=== PATIENT | female | born 2000 | race Hispanic/Latino ===

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

== ENCOUNTER 2020-01-10 16:26 | Emergency (ER) | payer OTHER ==
--- OUTSIDE RECORDS SUMMARY | 2020-01-10 16:28 | XMS REPORT ---
:2000 Author Organization [facility] Address [address] [place] [address] Care Team Providers Name Role Phone Unavailable Unavailable Unavailable Problems This patient has no known problems. Allergies, Adverse Reactions, Alerts This patient has no known allergies or adverse reactions. Medications This patient has no known medications.
--- OUTSIDE RECORDS SUMMARY | 2020-01-10 16:29 | XMS REPORT | Summary of Care ---
:2000 Author Organization [facility] Address [address] [place] [id number] Care Team Providers Name Role Phone Jade Rose [facility] Primary [facility] Provider Reason for Visit Reason Comments Results Encounter Details Date Type Department Care Team Description 10/18/2019 Telephone [facility] Pediatric and Delta Wiggins MD Results Adult Primary Care- [address] [facility] [address] [address] [place] [address] [place] [address] [address] [place] [address] [phone] Allergies No Known Allergiesdocumented as of this encounter (statuses as of 10/18/2019) Medications Medication Sig Dispensed Refills Start Date [...] hemorrhage, needed for unspecified type Alternate with [place] for pain scale 1-3 (=). HYDROcodone-acetamino Take [...] (two) times tabletIndications: daily. hemorrhage, unspecified type doxycycline hyclate Take 1 tablet by 20 tablet 0 10/09/2019 Active 100 mg mouth 2 (two) times tabletIndications: daily. Urinary tract infection without hematuria, site unspecified meclizine 12.5 mg Take 1 tablet by 30 tablet 0 10/09/2019 Active tabletIndications: mouth 3 (three) Vertigo times daily as needed for Dizziness. cetirizine (ZYRTEC) Take 1 tablet by 15 tablet 0 10/09/2019 Active 10 mg mouth daily. tabletIndications: Urticaria, unspecified Hospital, Clinic, or Other Ordered Dose Route Frequency Start Date End Date Status Facility Administered Medication medroxyPROGESTERone 150 mg IM [id number] 05/17/2019 0 Active (DEPO-PROVERA) injection 150 mg documented as of this encounter (statuses as of 10/18/2019) Active Problems Problem Noted Date Vertigo 10/09/2019 Amenorrhea due to Depo Provera 10/09/2019 Fatigue, unspecified type 10/09/2019 Dyspareunia in female 10/09/2019 Urinary tract infection without hematuria, site unspec ified 10/09/2019 Urticaria, unspecified 10/09/2019 Anxiety 10/09/2019 Depo-Provera contraceptive status 05/28/2019 Overview: See scanned records received depo on 6-1 -19 Breakthrough bleeding on depo provera 04/19/2019 hemorrhage 12/20/2018 Acute blood loss anemia 12/20/2018 documented as of this encounter (statuses as of 10/18/2019) Resolved Problems Problem Noted Date Resolved Date 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 Headache 02/13/2015 12/20/2018 Overview: ICD10 Diagnosis Term 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 documented as of this encounter (statuses as of 10/18/2019) Social History Tobacco Use Types Packs/Day Years [...] filedocumented in this encounter Plan of Treatment Health Maintenance Due Date Last Done Comments VARICELLA VACCINES (1 of 2 - 2001 2-dose childhood series) MENINGOCOCCAL B VACCINES (1 of 2 - 2010 Risk Bexsero 2-dose series) DTaP,Tdap,and Td Vaccines (1 - 2011 Tdap) HPV VACCINES (1 - Female 2-dose 2011 series) WELL CARE VISIT: 12-21 YEARS 2012 (yearly) INFLUENZA VACCINE (#1) 2019 CHLAMYDIA SCREENING 04/19/2020 04/19/2019 MENINGOCOCCAL VACCINE Aged Out No longer eligible based on patient's age to complete this topic PNEUMOCOCCAL 0-64 YEARS COMBINED Aged Out No longer eligible based on SERIES patient's age to complete this topic documented as of this encounter Results Not on filedocumented in this encounter Insurance Payer Benefit Plan / Subscriber ID Effective Dates Phone Addre ss Type Group [id number] MEDICAID OF xxxxxxxxx 2019-Present [phone] [address] Medicaid [place] [id number] [place] [id number] documented as of this encounter
--- OUTSIDE RECORDS SUMMARY | 2020-01-10 16:29 | XMS REPORT | Summary of Care ---
:2000 Author Organization [facility] Address [address] [place] [address] Care Team Providers Name Role Phone Jade Rose Angle [facility] Primary Care Provider Encounter Details Date Type Department Care Team Description 10/10/2019 Orders Only [facility] Doctor Unassigned, No [address] [facility] [place] [address] [address] [place] [address] Allergies No Known Allergiesdocumented as of this encounter (statuses as of 10/11/2019) Medications Medication Sig Dispensed Refills Start Date [...] hemorrhage, needed for unspecified type Alternate with [place] for pain scale 1-3 (=). HYDROcodone-acetamino Take [...] Facility Administered Medication medroxyPROGESTERone 150 mg IM [id number] 05/17/2019 0 Active (DEPO-PROVERA) injection 150 mg documented as of this encounter (statuses as of 10/11/2019) Active Problems Problem Noted Date Vertigo 10/09/2019 Amenorrhea due to Depo Provera 10/09/2019 Fatigue, unspecified type 10/09/2019 Dyspareunia in female 10/09/2019 Urinary tract infection without hematuria, site unspec ified 10/09/2019 Urticaria, unspecified 10/09/2019 Anxiety 10/09/2019 Depo-Provera contraceptive status 05/28/2019 Overview: See scanned records received depo on 02-02 Breakthrough bleeding on depo provera 04/19/2019 hemorrhage 12/20/2018 Acute blood loss anemia 12/20/2018 documented as of this encounter (statuses as of 10/11/2019) Resolved Problems Problem Noted Date Resolved Date 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 Headache 02/13/2015 12/20/2018 Overview: ICD10 Diagnosis Term 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 documented as of this encounter (statuses as of 10/11/2019) Social History Tobacco Use Types Packs/Day Years [...] Procedures Procedure Name Priority Date/Time Associated Diagnosis Comme nts AGREEMENTS AUTHORIZATIONS Routine 10/10/2019 12:01 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
--- OUTSIDE RECORDS SUMMARY | 2020-01-10 16:30 | XMS REPORT | Summary of Care ---
:2000 Author Organization [facility] Address [address] [place] [address] Care Team Providers Name Role Phone Jade Rose [facility] Primary Care Provider [phone] Reason for Referral (Routine) Status Reason Specialty Diagnoses / Referred By Referred To Procedures Contact Contact New Request Obstetrics & Diagnoses Amenorrhea due to Depo Provera Dyspareunia in female [place], Gynecology Procedures CONSULT/REFERRAL AD TAKER MD Delta [address] [place] [address] [address] [place] [address] Reason for Visit Reason Comments New Patient est care VERTIGO Skin Problem UTI Sexual Problem dyspareunia with intermitten t bleed URTICARIA Anxiety Encounter Details Date Type Department Care Team Description 10/09/2019 Office Visit [facility] Delta Javier V ertigo (Primary Dx); and Adult Primary MD Amenorrhea due to Depo Provera; Care- [address] [place]; [address] [place] [address] , [address] Fatigue, unspecified type; [address] [place] [address] Dyspareunia in female; [place], [place] [phone] Urinary tract infection without hematuri a, site unspecified; [id number] Urticaria, unspecified [phone] Allergies No Known Allergiesdocumented as of this encounter (statuses as of 10/09/2019) Medications Medication Sig Dispensed Refills Start Date [...] hemorrhage, needed for unspecified type Alternate with [place] for pain scale 1-3 (=). HYDROcodone-acetamino Take [...] Facility Administered Medication medroxyPROGESTERone 150 mg IM [id number] 05/17/2019 0 Active (DEPO-PROVERA) injection 150 mg documented as of this encounter (statuses as of 10/09/2019) Active Problems Problem Noted Date Vertigo 10/09/2019 Amenorrhea due to Depo Provera 10/09/2019 Fatigue, unspecified type 10/09/2019 Dyspareunia in female 10/09/2019 Urinary tract infection without hematuria, site unspec ified 10/09/2019 Urticaria, unspecified 10/09/2019 Anxiety 10/09/2019 Depo-Provera contraceptive status 05/28/2019 Overview: See scanned records received depo on 609-22 Breakthrough bleeding on depo provera 04/19/2019 hemorrhage 12/20/2018 Acute blood loss anemia 12/20/2018 documented as of this encounter (statuses as of 10/09/2019) Resolved Problems Problem Noted Date Resolved Date 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 Headache 02/13/2015 12/20/2018 Overview: ICD10 Diagnosis Term Log Tumbler Utility documented as of this encounter (statuses as of 10/09/2019) Social History Tobacco Use Types Packs/Day Years [...] Sign Reading Time Taken Comments Blood Pressure 123/79 10/09/2019 1:00 PM REEL OPERATOR Pulse 86 10/09/2019 1:00 PM REEL OPERATOR Temperature 36.6 C (97.9 F) 10/09/2019 1:00 PM REEL OPERATOR Respiratory Rate 18 10/09/2019 1:00 PM REEL OPERATOR Oxygen Saturation 98% 10/09/2019 1:00 PM REEL OPERATOR Inhaled Oxygen Concentration - - Weight 67.3 kg (148 lb 4.8 oz) 10/09/2019 1:00 PM REEL OPERATOR Height 160 cm (5' 3") 10/09/2019 1:00 PM REEL OPERATOR Body Mass Index 26.27 10/09/2019 1:00 PM REEL OPERATOR documented in this encounter Patient Instructions Patient InstructionsDelta Javier MD - 10/09/2019 1:00 PM REEL OPERATOR Urinary Tract Infections in Women Urinary tract infections (UTIs) are most often caused bybacteria. These bacteria enter the urinarytract. The bacteria may come from inside the body. Or they may travel from the skin outside therectum or vagina into the urethra. Female anatomy makes it easy for bacteria from the bowelto enter a womans urinary tract, which is the most common source of UTI. This means women develop UTIs more often than men. Pain in or around the urinary tract is a common UTI symptom. But the only way to know for sure if you have a UTI for the healthcare provider to test your urine. The two tests that may be done are the urinalysis and urine culture. Types of UTIs Cystitis. A bladder infection (cystitis) is the most common UTI in women. You may have urgent or frequent need to pee. You may also havepain, burning when you pee, and bloody urine. Urethritis. This is an inflamed urethra, which is the tube that carries urine from the bladder tooutside the body. You may have lower stomach or back pain. You may also have urgent or frequent needto pee. Pyelonephritis. This is a kidney infection. If not treated, it can be serious and damage your kidneys. In severe cases, you may need to stay in thehospital. You may have a fever and lower back pain. Medicines to treat a UTI Most UTIs are treated with antibiotics. These kill the bacteria. The length of time you need to takethem depends on the type of infection. It may be as short as 3 days. If you have repeated UTIs, you may need a low-dose antibioticfor several months. Take antibiotics exactly as directed. Dont stop taking them until all of the medicine is gone. If you stop taking the antibiotic too soon, the infection may not go away. You may also develop a resistance to the antibiotic. This can make it much harder to treat. Lifestyle changes to treat and prevent UTIs The lifestyle changes below will help get rid of your UTI. They may also help prevent future UTIs. Drink plenty of fluids. This includes water, juice, or other caffeine-free drinks. Fluids help flush bacteria out of your body. Empty your bladder. Always empty your bladder when you feel the urge to pee. And always pee before going to sleep. Urine that stays in your bladder can lead to infection. Try to pee before and aftersex as well. Practice good personal hygiene. Wipe yourself from front to back after using the toilet. This helps keep bacteria from getting into the urethra. Use condoms during sex. These help prevent UTIs caused by sexually transmitted bacteria. Also don't use spermicides during sex. These can increase the risk for UTIs. Choose other forms of control instead. For women who tend to get UTIs after sex, a low-dose of a preventive antibiotic may be used. Be sure to discuss this option with your healthcare provider. Follow up with your healthcare provider as directed. He or she may test to make sure the infection has cleared. If needed, more treatment may be started. [employer] last reviewed this educational content on 03/04/201919994545-6540 [employer]. [address] [place] [address], [place] [address]. All rights reserved. This information is not intended as a substitute for professional medical care. Always follow your healthcare professional's instructions. OPERATOR documented in this encounter Progress Notes Delta Javier MD - 10/09/2019 1:00 PM CST Family Medicine Visit to Establish Care CC: Chief Complaint Patient presents with New Patient est care VERTIGO Skin Problem UTI Sexual Problem dyspareunia with intermittent bleed URTICARIA Anxiety HPI Maria A Veloz is a 19 year old female who has a past medical history of Acute blood loss anemia (12/20/2018), Amenorrhea due to Depo Provera (10/09/2019), Anxiety (10/09/2019), Breakthrough bleeding on depo provera (04/19/2019), Depo- Provera contraceptive status (05/28/2019), Dyspareunia in female (10/09/2019), Fatigue, unspecified type (10/09/2019), hemorrhage (12/20/2018), and Vertigo (10/09/2019).Patient is here to establish care and c/o of dizziness and diffuse skin pain. Dizziness started 1 month ago that is associated with nausea, but no vomiting. Says eating makes herstomach cramp and feel worse. Hasn't tried any medications to alleviate dizziness. Also reports fatigue. Has not fainted. Says she has taken multiple OTC tests, all of which have been negative. Last Hgb in 04/2019 was 13.9. Gave to daughter in 12/2018. complicated by hemorrhage, requiring 2 units of pRBCs. Also required vaginal laceration repair. Hasn't had a period since then, but patient has had multiple episodes of vaginal bleeding after intercourse. Patient says for the past month she has been able to have intercourse w/o bleeding, notes sx vaginal bleed is intermittent with intercourse, sometimes lasting up to 2 weeks, reports pain during intercourse. Denies change in odor or vaginal discharge. Patient received medroxyprogesterone injection in 05/2019. She did not receive subsequent scheduled medroxyprogesterone in 08/2019, no menstraul upper [place] since then Also complains of diffuse "skin pain". No recent falls or trauma. Says that pain is localized mainlyin legs, and after she scratches legs lightly there is diffuse bruising the next day. POCT test negative at this visit. UA positive for nitrates with trace leukocytes. Denies hematuria or change in frequency. Allergies Maria A has No Known Allergies. Medications Outpatient Medications Prior to Visit Medication Sig Dispense Refill ascorbic acid, vitamin C, 500 mg tablet Take 1 tablet by mouth 2 (two) times daily. 30 tablet 1 ferrous sulfate 325 mg (65 mg iron) tablet Take 1 tablet by mouth 3 (three) times daily with meals. 60 tablet 1 foLIC acid 1 mg tablet Take 1 tablet by mouth daily. 30 tablet 2 HYDROcodone-acetaminophen 5-325 mg tablet Take 1 tablet by mouth every 6 (six) hours as needed for Pain (scale 4-6). 28 tablet 0 ibuprofen 600 mg tablet Take 1 tablet by mouth every 8 (eight) hours as needed for Alternate with [place] for pain scale 1-3 (=). 30 tablet 2 vitamin w/FA tablet Take 1 tablet by mouth daily. 60 tablet 1 simethicone 80 mg chewable tablet Take 2 tablets by mouth after meals and at bedtime as needed for Gas. 10 tablet 0 Facility-Administered Medications Prior to Visit Medication Dose Route Frequency Provider Last Rate Last Dose medroxyPROGESTERone (DEPO-PROVERA) injection 150 mg 150 mg Intramuscular [id number] Jade Rose, WHBRIIP 150 mg at 05/17/19 1438 Histories Past Medical History: Diagnosis Date Acute blood loss anemia 12/20/2018 Amenorrhea due to Depo Provera 10/09/2019 Anxiety 10/09/2019 Breakthrough bleeding on depo provera 04/19/2019 Depo-Provera contraceptive status 05/28/2019 See scanned records received depo on 02-12-19 Dyspareunia in female 10/09/2019 Fatigue, unspecified type 10/09/2019 hemorrhage 12/20/2018 Vertigo 10/09/2019 Past Surgical History: Procedure Laterality Date EXPLORATORY LAPAROTOMY N/A 12/20/2018 Surgeon: Yovani Luna MD; Location: Labor and Delivery - [facility] Social History Socioeconomic History Marital status: Single [...] file Gets together: Not on file Attends tenriism service: Not on file Active member of [...] file Social History Narrative Not on file History reviewed. No pertinent family history. Review of Systems Constitutional: Positive for fatigue. Negative for chills and fever. HENT: Negative for ear pain and sore throat. Eyes: Negative for photophobia and visual disturbance. Respiratory: Negative for shortness of breath. Cardiovascular: Negative for chest pain and leg swelling. Gastrointestinal: Positive for nausea. Negative for vomiting. Genitourinary: Positive for dyspareunia. Negative for dysuria, urgency, hematuria and difficulty urinating. Musculoskeletal: Negative for arthralgias, back pain and neck pain. Neurological: Positive for dizziness and light-headedness. Negative for tremors and weakness. Psychiatric/Behavioral: Negative for confusion and suicidal ideas. Vital Signs BP 123/79 (BP Location: Left arm, Patient Position: Sitting, BP CUFF SIZE: Adult Medium) | Pulse 86 | Temp 36.6 C (97.9 F) (Temporal Artery) | Resp 18 | Ht 5' 3" (1.6 m) | Wt 148 lb 4.8 oz (67.3 kg) | SpO2 98% | BMI 26.27 kg/m Physical Exam Constitutional: She is oriented to person, place, and time. She appears well- developed and well-nourished. HENT: Head: Normocephalic. Right Ear: External ear normal. Left Ear: External ear normal. Mouth/Throat: Oropharynx is clear and moist. Eyes: Pupils are equal, round, and reactive to light. EOM are normal. Neck: Normal range of motion. Neck supple. Cardiovascular: Normal rate, regular rhythm, normal heart sounds and intact distal pulses. Pulmonary/Chest: Effort normal and breath sounds normal. Abdominal: Soft. Bowel sounds are normal. Genitourinary: Genitourinary Comments: No flank pain Vertical incision scar from exploratory laparotomy noted. Scar has no discharge or erythema. Computer Repairer: Yue Desouza Musculoskeletal: Normal range of motion. She exhibits no edema or tenderness. Neurological: She is alert and oriented to person, place, and time. Skin: Skin is warm and dry. Capillary refill takes less than 2 seconds. Psychiatric: She has a normal mood and affect. Her behavior is normal. Judgment and thought content normal. Assessment/Plan Vertigo - Complicated by UTI. HX blood loss anemia and fatigue noted - EKG: normal sinus rhythm - Labs as ordered - meclizine 12.5 mg tablet; Take 1 tablet by mouth 3 (three) times daily as needed for Dizziness. Dispense: 30 tablet; Refill: 0 Amenorrhea due to Depo Provera - No menstrual upper [place] since stopping medication atleast 3 months ago. Not breakthrough bleeds with intermittent bleed during intercourse, sometimes lasting up to 2 weeks. - POCT UA abnormal; POCT test negative - CONSULT/REFERRAL AD TAKER Anxiety - Stable. Complicated with traumatic birthing experience. Would benefit from CBT, will consider pharmacotherapy as indicated - Referral: Psychology, External Fatigue, unspecified type - Etiology unknown - Advised to maintain well balanced diet. - Labs as ordered Dyspareunia in female - Complicated by UTI, hx exploratory laparotomy and intermittent bleed during intercourse - CONSULT/REFERRAL AD TAKER Urinary tract infection without hematuria, site unspecified - UA in clinic abnormal: positive nitrate with trace leuks. Complicated by painful and intermittentbleed during intercourse - doxycycline hyclate 100 mg tablet; Take 1 tablet by mouth 2 (two) times daily. Dispense: 20 tablet; Refill: 0 - URINE CULTURE Urticaria, unspecified - Likely idiopathic. Symptomatic management - cetirizine (ZYRTEC) 10 mg tablet; Take 1 tablet by mouth daily. Dispense: 15 tablet; Refill: 0 Preventive Care: Medication reconciliation, patient education and anticipatory guidance completed. All questions and concerns addressed. AVS given, handout on UTI, vertigo provided. Return in about 2 weeks (around 10/23/2019), or if symptoms worsen or fail to improve. Eda Quinn MS3 10/09/2019 2:26 PM I personally examined the patient on 10/09/2019 and agree with MS 3 (Eda Quinn) note as written, including any changes or additions to the medical student's note. I actively participated in the decision making process. Please see note for additional details. Delta Javier MD 10/09/2019 3:06 PM OPERATOR documented in this encounter Plan of Treatment Name Type Priority Associated Diagnoses Date/Ti me URINE CULTURE LAB Routine Urinary tract infection wit hout 10/09/2019 4:18 PM REEL OPERATOR hematuria, site unspecified Name Type Priority Associated Diagnoses Order S chedule EKG-12 LEAD ROUTINE HEART STATION Routine Vertigo Ordered : 10/09/2019 CBC WITH DIFF LAB Routine Fatigue, unspecified Expect ed: type 10/09/2019, Expires: 10/09/2020 COMP. METABOLIC PANEL LAB Routine Vertigo Expected: ([id number]) Fatigue, unspecified 020, type Expires: 10/09/2020 FREE T3 LAB Routine Vertigo Expected: Fatigue, unspecified 020, type Expires: 10/09/2020 FREE T4 LAB Routine Vertigo Expected: Fatigue, unspecified 020, type Expires: 10/09/2020 THYROID STIMULATING LAB Routine Vertigo Expected: HORMONE Fatigue, unspecified 020, type Expires: 10/09/2020 LIPID PANEL LAB Routine Vertigo Expected: ([id number])(TOTAL 10/09/2019, CHOLESTEROL, Expires: TRIGLYCERIDES, HDL) 10/09/19 21 Health Maintenance Due Date Last Done Comments [...] encounter Procedures Procedure Name Priority Date/Time Associated Comments Diagnosis TEST, STAT 10/09/2019 4:18 PM Amenorrhea due to Results for this URINE REEL OPERATOR Depo Provera procedure are i n the results section. POCT URINALYSIS Routine 10/09/2019 2:34 PM Amenorrhea due to Results for this REEL OPERATOR Depo Provera procedure are i n the results section. documented in this encounter Results TEST, URINE (10/09/2019 4:18 PM REEL OPERATOR) Pathologist Sig nature PREG URINE Negative [facility] Specimen Urine - URINE, CLEAN CATCH Narrative Performed At Less than 20 IU/L. If low titer or ectopic [facility] is suspected, resubmit specimen in 48-72 hours. Performing Organization Address City/State/Zipcode Phone Number [facility] CLIA: [id number], [address] [place], [place] [address] POCT URINALYSIS W SPECIFIC GRAVITY (10/09/2019 2:34 PM REEL OPERATOR) Pathologist Sig nature POCT U SP GRAV 1.000 (A) 1.005 - 1.025 mg/dl POCT PH U 7 5 - 8 mg/dl POCT U LEUK EST trace Negative - Negative POCT U NIT positive Negative - Negative POCT U PROT negative Negative - Negative POCT U GLU negative Negative - Negative POCT U KETONE negative Negative - Negative POCT U UROBILI 0.2 0.2 - 1 mg/dl POCT U BILI negative Negative - Negative POCT U BLD negative Negative - Negative POCT U COLOR clear POCT U APPEAR clear Specimen Urine - URINE, CLEAN CATCH documented in this encounter Visit Diagnoses Diagnosis Vertigo - Primary Dizziness and giddiness Amenorrhea due to Depo Provera Absence of menstruation Anxiety Anxiety state, unspecified Fatigue, unspecified type Dyspareunia in female Urinary tract infection without hematuri a, site unspecified Urticaria, unspecified documented in this encounter Insurance Payer Benefit Plan / Subscriber ID Effective Dates Phone Addre ss Type Group [employer] MEDICAID OF xxxxxxxxx 2019-Present [phone] [place] [id number] [place] [id number] documented as of this encounter
--- OUTSIDE RECORDS SUMMARY | 2020-01-10 16:30 | XMS REPORT | Summary of Care ---
:2000 Author Organization [facility] Address [address] [place] [address] Care Team Providers Name Role Phone Jade Rose [facility] Primary [facility] Provider [phone] Reason for Referral (Routine) Status Reason Specialty Diagnoses / Referred By Referred To Procedures Contact Contact New Request Obstetrics & Diagnoses Amenorrhea due to Depo Provera Dyspareunia in female [place], Gynecology Procedures CONSULT/REFERRAL OTR COMPANY DRIVER MD Delta [address] [place] [address] [address] [place] [address] Reason for Visit Reason Comments New Patient est care VERTIGO Skin Problem UTI Sexual Problem dyspareunia with intermitten t bleed URTICARIA Anxiety Encounter Details Date Type Department Care Team Description 10/09/2019 Office Visit [facility] Pediatric Delta Javier V ertigo (Primary Dx); and Adult Primary MD Amenorrhea due to Depo Provera; Care- [address] [place]; [address] [place] [address] , [address] Fatigue, unspecified type; [address] [place] [address] Dyspareunia in female; [place], [place] [phone] Urinary tract infection without hematuri a, site unspecified; [id number] Urticaria, unspecified [phone] Allergies No Known Allergiesdocumented as of this [...] hemorrhage, needed for unspecified type Alternate with [place] for pain scale 1-3 (=). HYDROcodone-acetamino Take [...] Facility Administered Medication medroxyPROGESTERone 150 mg IM [id number] 05/17/2019 0 Active (DEPO-PROVERA) injection 150 mg [...] Headache 02/13/2015 12/20/2018 Overview: ICD10 Diagnosis Term Construction Electrician Utility documented as of this encounter (statuses [...] Comments Blood Pressure 123/79 10/09/2019 1:00 PM FEATHER SAWYER Pulse 86 10/09/2019 1:00 PM FEATHER SAWYER Temperature 36.6 C (97.9 F) 10/09/2019 1:00 PM FEATHER SAWYER Respiratory Rate 18 10/09/2019 1:00 PM FEATHER SAWYER Oxygen Saturation 98% 10/09/2019 1:00 PM FEATHER SAWYER Inhaled Oxygen Concentration - - Weight 67.3 kg (148 lb 4.8 oz) 10/09/2019 1:00 PM FEATHER SAWYER Height 160 cm (5' 3") 10/09/2019 1:00 PM FEATHER SAWYER Body Mass Index 26.27 10/09/2019 1:00 PM FEATHER SAWYER documented in this encounter Patient Instructions Patient InstructionsDelta Javier MD - 10/09/2019 1:00 PM FEATHER SAWYER Urinary Tract Infections in Women Urinary tract [...] If needed, more treatment may be started. [employer] last reviewed this educational content on 03/04/201919996395-0918 [employer]. [address] [place] [address], [place] [address]. All rights reserved. This information is not intended as a substitute for professional medical care. Always follow your healthcare professional's instructions. HER SAWYER documented in this encounter Progress Notes Delta [...] subsequent scheduled medroxyprogesterone in 08/2019, no menstraul [place] since then Also complains of diffuse "skin [...] (eight) hours as needed for Alternate with [place] for pain scale 1-3 (=). 30 tablet [...] (DEPO-PROVERA) injection 150 mg 150 mg Intramuscular [id number] Jade Rose, WHBRIIP 150 mg at 05/17/19 [...] Luna MD; Location: Labor and Delivery - [facility] Social History Socioeconomic History Marital status: Single [...] file Gets together: Not on file Attends restoration service: Not on file Active member of [...] noted. Scar has no discharge or erythema. Hand Stitcher: Yue Desouza Musculoskeletal: Normal range of motion. [...] due to Depo Provera - No menstrual [place] since stopping medication atleast 3 months ago. Not breakthrough bleeds with intermittent bleed during intercourse, sometimes lasting up to 2 weeks. - POCT UA abnormal; POCT test negative - CONSULT/REFERRAL OTR COMPANY DRIVER Anxiety - Stable. Complicated with traumatic birthing experience. Would benefit from CBT, will consider pharmacotherapy as indicated - Referral: Psychology, External Fatigue, unspecified type - Etiology unknown - Advised to maintain well balanced diet. - Labs as ordered Dyspareunia in female - Complicated by UTI, hx exploratory laparotomy and intermittent bleed during intercourse - CONSULT/REFERRAL OTR COMPANY DRIVER Urinary tract infection without hematuria, site unspecified [...] details. Delta Javier MD 10/09/2019 3:06 PM HER SAWYER documented in this encounter Plan of Treatment Name Type Priority Associated Diagnoses Date/Ti me URINE CULTURE LAB Routine Urinary tract infection wit hout 10/09/2019 4:18 PM FEATHER SAWYER hematuria, site unspecified Name Type Priority Associated Diagnoses Order S chedule EKG-12 LEAD ROUTINE HEART STATION Routine Vertigo Ordered : 10/09/2019 CBC WITH DIFF LAB Routine Fatigue, unspecified Expect ed: type 10/09/2019, Expires: 10/09/2020 COMP. METABOLIC PANEL LAB Routine Vertigo Expected: ([id number]) Fatigue, unspecified 020, type Expires: 10/09/2020 FREE T3 LAB Routine Vertigo Expected: Fatigue, unspecified 020, type Expires: 10/09/2020 FREE T4 LAB Routine Vertigo Expected: Fatigue, unspecified 020, type Expires: 10/09/2020 THYROID STIMULATING LAB Routine Vertigo Expected: HORMONE Fatigue, unspecified 020, type Expires: 10/09/2020 LIPID PANEL LAB Routine Vertigo Expected: ([id number])(TOTAL 10/09/2019, CHOLESTEROL, Expires: TRIGLYCERIDES, HDL) 10/09/19 21 [...] Amenorrhea due to Results for this URINE FEATHER SAWYER Depo Provera procedure are i n the results section. POCT URINALYSIS Routine 10/09/2019 2:34 PM Amenorrhea due to Results for this FEATHER SAWYER Depo Provera procedure are i n the results section. documented in this encounter Results TEST, URINE (10/09/2019 4:18 PM FEATHER SAWYER) Pathologist Sig nature PREG URINE Negative [facility] Specimen Urine - URINE, CLEAN CATCH Narrative Performed At Less than 20 IU/L. If low titer or ectopic [facility] is suspected, resubmit specimen in 48-72 hours. Performing Organization Address City/State/Zipcode Phone Number [facility] CLIA: [id number], [address] [place], [place] [address] POCT URINALYSIS W SPECIFIC GRAVITY (10/09/2019 2:34 PM FEATHER SAWYER) Pathologist Sig nature POCT U SP GRAV [...] Type Group [employer] MEDICAID OF xxxxxxxxx 2019-Present [phone] [address] Medicaid [place] [id number] [place] [phone] documented as of this encounter
--- OUTSIDE RECORDS SUMMARY | 2020-01-10 16:30 | XMS REPORT | Summary of Care ---
:2000 Author Organization [facility] Address [address] [place] [address] Care Team Providers Name Role Phone Jade Rose Angle [facility] Primary Care Provider [phone] Reason for Visit Reason Comments LAB Encounter Details Date Type Department Care Team Description 10/10/2019 Cuff Runner Visit [facility] Lance Javier MD [address] [place] [address] [address] [place], [place] [id number] Fatigue, unspecified type; Professional Office 2, Adc Lab Vertigo Building Phlebotomy Lab Professional Office Building [address] [place] [address] , [address] [place] [phone] Allergies No Known Allergiesdocumented as of this encounter (statuses as of 10/10/2019) Medications Medication Sig Dispensed Refills Start Date [...] hemorrhage, needed for unspecified type Alternate with [place] for pain scale 1-3 (=). HYDROcodone-acetamino Take [...] Facility Administered Medication medroxyPROGESTERone 150 mg IM [id number] 05/17/2019 0 Active (DEPO-PROVERA) injection 150 mg documented as of this encounter (statuses as of 10/10/2019) Active Problems Problem Noted Date Vertigo 10/09/2019 Amenorrhea due to Depo Provera 10/09/2019 Fatigue, unspecified type 10/09/2019 Dyspareunia in female 10/09/2019 Urinary tract infection without hematuria, site unspec ified 10/09/2019 Urticaria, unspecified 10/09/2019 Anxiety 10/09/2019 Depo-Provera contraceptive status 05/28/2019 Overview: See scanned records received depo on 6-09-22 Breakthrough bleeding on depo provera 04/19/2019 hemorrhage 12/20/2018 Acute blood loss anemia 12/20/2018 documented as of this encounter (statuses as of 10/10/2019) Resolved Problems Problem Noted Date Resolved Date 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 Headache 02/13/2015 12/20/2018 Overview: ICD10 Diagnosis 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 documented as of this encounter (statuses as of 10/10/2019) Social History Tobacco Use Types Packs/Day Years [...] filedocumented in this encounter Plan of Treatment Name Type Priority Associated Diagnoses Order S chedule CBC WITH DIFFERENTIAL LAB Routine Fatigue, unspecifie d type Ordered: 10/10/2019 Health Maintenance Due Date Last Done Comments VARICELLA VACCINES (1 of - 2001 2-dose childhood series) MENINGOCOCCAL B VACCINES (1 of - 2010 Risk Bexsero 2-dose series) DTaP,Tdap,and Td Vaccines ( - 2011 Tdap) HPV VACCINES (1 - [...] filedocumented in this encounter Visit Diagnoses Diagnosis Fatigue, unspecified type Vertigo Dizziness and giddiness documented in this encounter Insurance Payer Benefit Plan / Subscriber ID Effective Dates Phone Addre ss Type Group [employer] MEDICAID OF xxxxxxxxx 2019-Present [phone] [address] [place] [address] [place] [address] (Lewis) [place] [address] documented as of this encounter
--- OUTSIDE RECORDS SUMMARY | 2020-01-10 16:31 | XMS REPORT | Summary of Care ---
:2000 Author Organization [facility] Address [address] [place] [address] Care Team Providers Name Role Phone Jade Rose [facility] Primary Care Provider [phone] Reason for Visit Reason Comments Rx Concern/Question license number Encounter Details Date Type Department Care Team Description 10/09/2019 Telephone [facility] Pediatric Delta Javier MD Rx Concern/Question and Adult Primary [address] [facility] (license number) [place] [id number] [address] [facility] [place] [address] [address] [place] [address] Allergies No Known Allergiesdocumented as of this [...] hemorrhage, needed for unspecified type Alternate with [place] for pain scale 1-3 (=). 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
--- NOTE | 2020-01-10 18:58 | ER ---
Nurse's Notes [facility] Name: Maria A Veloz Age: 19 yrs Sex: Female : 2000 Arrival Date: 01/10/2020 Time: 16:32 Bed Waiting Private MD: Diagnosis: Presentation: 01/09 16:33 Chief complaint: Patient states: vaginal bleeding since 12/05/19. c/o abd cramping. sv Reports using a pad Q2H. Has had vaginal bleeding problems since the of her daughter last year. Coronavirus screen: Proceed with normal triage. Patient denies a cough. Patient denies shortness of breath or difficulty breathing. Patient denies measured and/or subjective temperature greater than 100.4F prior to today's visit. Patient denies travel on a cruise ship or to a country the [facility] currently lists as an affected area. Patient denies contact with known and/or suspected case of COVID-19. Ebola Screen: No symptoms or risks identified at this time. Risk Assessment: Do you want to hurt yourself or someone else? Patient reports no desire to harm self or others. Onset of symptoms was 2019. 16:33 Method Of Arrival: Ambulatory sv 16:33 Acuity: SARAH 3 sv 16:35 Initial Sepsis Screen: Does the patient meet any 2 criteria? No. Patient's initial sv sepsis screen is negative. Does the patient have a suspected source of infection? No. Patient's initial sepsis screen is negative. Triage Assessment: 16:37 General: Appears in no apparent distress. comfortable, Behavior is calm, cooperative, sv appropriate for age. Pain: Complains of pain in suprapubic area. Neuro: Level of Consciousness is awake, alert, obeys commands, Oriented to person, place, time, situation, Gait is steady. : Reports vaginal bleeding that is bright red, brown, moderate flow. Historical: - Allergies: 16:34 No Known Drug Allergies; sv - PMHx: 16:34 Asthma; sv - PSHx: 16:34 Exploratory lap; sv - Immunization history:: Adult Immunizations up to date. - Social history:: Smoking status: . Vital Signs: 16:35 BP 114 / 77; Pulse 78; Resp 16; Temp 98.9(O); Pulse Ox 98% ; Height 5 ft. 3 in. (160.02 sv cm); ED Course: 16:32 Patient arrived in ED. mr 16:32 Arm band placed on. sv 16:34 Triage completed. sv 18:42 Patient's name was called from ER lobby. No response. aa5 18:57 Patient's name was called from ER lobby. No response. sv Administered Medications: No medications were administered Outcome: 18:58 Patient left the ED. sv Signatures: Bouchra Roman RN RN sv Rivera, Mary mr Calderon, Audri, RN RN aa5 Corrections: (The following items were deleted from the chart) 16:37 16:35 Pulse 78bpm; Resp 16bpm; Pulse Ox 98%; Temp 98.9F Oral; Height 5 ft. 3 in.; sv sv 16:38 16:33 Chief complaint: Patient states: vaginal bleeding since 12/05/19. c/o abd cramping. sv Reports using a pad Q2H sv
[2020-01-10 19:02] VITALS: BP 114/77; TEMP 98.9; O2SAT 98
== END 2020-01-10 18:58 | disposition left against medical advice (07) ==
LOC: ER 16:26
DX: Z53.21 Procedure and treatment not carried out due to patient leaving prior to being seen by health care provider (principal)
CPT/HCPCS: 99281

== ENCOUNTER 2020-01-16 16:11 | Emergency (ER) | payer OTHER ==
--- OUTSIDE RECORDS SUMMARY | 2020-01-16 16:14 | XMS REPORT ---
:2000 Author Organization [facility] t Address [address] [place] [address] Care Team Providers Name Role Phone Concepcion PORTILLO Attending Clinician 2, Lab Attending Clinician Unavailable Doctor Unassigned, Name Attending Clinician Unavailable Problems This patient has no known problems. Allergies, Adverse Reactions, Alerts This patient has no known allergies or adverse reactions. Medications This patient has no known medications. Procedures This patient has no known procedures. 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, Adc Lab [facility] [id number] 08:19:48 08:34:48 Visit Kulwant [id number] [place] [id number] Mihai [phone] nal 353 [facility] 2019-10-10 2019-10-10 Orders Doctor DAHL [id number] 00:00:00 00:00:00 Only Unassigned, JOSE [id number] [place] [id number] 2019-10-09 2019-10-09 Office Concepcion [facility] [id number] 12:49:19 16:10:54 Visit Delta Blum [id number] [place] [id number] Mihai [phone] [address] 2019-10-09 2019-10-09 [facility] [id number] 00:00:00 00:00:00 Delta Blum [id number] [place] [id number] [phone] [address] Results This patient has no known results.
[2020-01-16 17:37] LABS: Absolute Lymphocytes (CBC) 1.9 K/uL (0.7-4.9); Basophils % 0.8 % (0-1.3); Hematocrit 42.8 % (36.0-45.0); Lymphocytes % 25.9 % (15.3-44.8); MPV 11.6 fL (7.6-11.3); RBC Red Blood Cell Count 4.82 M/uL (3.86-4.86)
[2020-01-16 17:38] LABS: Protime INR 1.05
[2020-01-16 17:59] LABS: BUN Blood Urea Nitrogen 8 mg/dL (7-18); Bicarbonate 29 mmol/L (21-32); Glucose Level 91 mg/dL (74-106); Potassium 3.6 mmol/L (3.5-5.1); Sodium Level 141 mmol/L (136-145)
--- NOTE | 2020-01-16 18:10 | RAD REPORT ---
EXAM DESCRIPTION: CT - Head Brain Wo Cont - 01/16/2020 5:49 pm CLINICAL HISTORY: Headache COMPARISON: 2014 TECHNIQUE: Computed axial tomography of the head was obtained. IV contrast was not requested. All CT scans are performed using dose optimization technique as appropriate and may include automated exposure control or mA/KV adjustment according to patient size. FINDINGS: An intracranial bleed is not seen . The ventricles are normal in caliber. No extra-axial fluid collection is noted. Cerebellar tonsillar ectopia is present Fluid within the sinuses/ mastoids is not seen. IMPRESSION: Cerebellar tonsillar ectopia No acute intracranial abnormality is seen. If patient's symptoms persist MRI of the brain would be r ecommended.
[2020-01-16 18:19] LABS: Urine Blood TRACE (NEG); Urine Glucose NEGATIVE (NEG); Urine Protein NEGATIVE (NEG)
--- NOTE | 2020-01-16 18:44 | ER ---
Nurse's Notes [facility] Name: Maria A Veloz Age: 19 yrs Sex: Female : 2000 Arrival Date: 01/16/2020 Time: 16:24 Bed 7 Private MD: Diagnosis: Headache Presentation: 01/15 16:25 Chief complaint: Patient states: Headache for 1 week. Dizziness and near syncope for 1 ll1 days. Reports vaginal bleeding for 1 month, heavy at times. Coronavirus screen: Proceed with normal triage. Patient denies a cough. Patient denies shortness of breath or difficulty breathing. Patient denies measured and/or subjective temperature greater than 100.4F prior to today's visit. Patient denies travel on a cruise ship or to a country the [facility] currently lists as an affected area. Patient denies contact with known and/or suspected case of COVID-19. Ebola Screen: Patient denies travel to an Ebola-affected area in the 21 days before illness onset. Initial Sepsis Screen: Does the patient meet any 2 criteria? No. Patient's initial sepsis screen is negative. Does the patient have a suspected source of infection? No. Patient's initial sepsis screen is negative. Risk Assessment: Do you want to hurt yourself or someone else? Patient reports no desire to harm self or others. Onset of symptoms was January 09, 2020. 16:25 Method Of Arrival: Ambulatory ll1 16:25 Acuity: SARAH 3 ll1 Historical: - Allergies: 16:30 No Known Drug Allergies; ll1 16:31 TB test; ll1 16:31 Tape; ll1 - PMHx: 16:30 Asthma; Anemia; complications from child ; ll1 - PSHx: 16:30 Exploratory lap; ll1 - Immunization history:: Adult Immunizations up to date, Flu vaccine is not up to date. - Social history:: Patient/guardian denies using alcohol, street drugs, tobacco products, Smoking status: Patient denies any tobacco usage or history of. Patient/guardian denies using alcohol. Screenin:11 Abuse screen: Denies threats or abuse. Denies injuries from another. Nutritional jl7 screening: No deficits noted. Tuberculosis screening: No symptoms or risk factors identified. Fall Risk IV access (20 points). Total Te[place] Fall Scale indicates No Risk (0-24 pts). Assessment: 17:00 General: Appears in no apparent distress. comfortable, Behavior is calm, cooperative, em appropriate for age, Denies fever. Pain: Complains of pain in forehead Pain currently is 6 out of 10 on a pain scale. Pain began 2-3 days ago. Neuro: Level of Consciousness is awake, alert, obeys commands, Oriented to person, place, time, situation, Appropriate for age Double End Sewer are equal bilaterally Moves all extremities. Speech is normal, Facial symmetry appears normal, Reports dizziness, headache weakness. Cardiovascular: Denies chest pain, Capillary refill < 3 seconds Patient's skin is warm and dry. Respiratory: Airway is patent Respiratory effort is even, unlabored, Respiratory pattern is regular, symmetrical. GI: Abdomen is flat, Reports nausea, Patient currently denies vomiting. : Urine is clear, Reports burning with urination, vaginal bleeding that is bright red. Derm: Skin is intact, is healthy with good turgor, Skin is pink, warm \T\ dry. Musculoskeletal: Capillary refill < 3 seconds, Range of motion: intact in all extremities. 17:58 Reassessment: Patient appears in no apparent distress at this time. Patient and/or em family updated on plan of care and expected duration. Pain level reassessed. Patient is alert, oriented x 3, equal unlabored respirations, skin warm/dry/pink. Vital Signs: 16:25 BP 132 / 80; Pulse 77; Resp 16; Temp 98.5; Pulse Ox 98% ; Weight 63.5 kg; Height 5 ft. ll1 4 in. (162.56 cm); Pain 6/10; 17:11 BP 103 / 68; Pulse 64; Resp 16; Pulse Ox 97% ; jl7 17:47 BP 118 / 77 Supine; Pulse 80; em 17:47 BP 123 / 91 Sitting; Pulse 82; em 17:47 BP 119 / 91 Standing; Pulse 74; em 16:25 Body Mass Index 24.03 (63.50 kg, 162.56 cm) ll1 ED Course: 16:24 Patient arrived in ED. mr 16:29 Triage completed. ll1 16:30 Arm band placed on Patient placed in an exam room, on a stretcher. ll1 16:33 Jimi Cervantes PA is PHCP. cp 16:33 Jimi Landa MD is Attending Physician. cp 16:45 Robbi Freitas, RN is Primary Nurse. em 17:11 Patient has correct armband on for positive identification. Placed in gown. Bed in low jl7 position. Call light in reach. Side rails up X 1. Pulse ox on. NIBP on. 17:30 Initial lab(s) drawn, by me, sent to lab. Inserted saline lock: 20 gauge in right em antecubital area, using aseptic technique. Blood collected. 17:48 CT Head Brain wo Cont In Process Unspecified. EDMS 18:50 No provider procedures requiring assistance completed. IV discontinued, intact, em bleeding controlled, No redness/swelling at site. Pressure dressing applied. Administered Medications: No medications were administered Outcome: 18:43 Discharge ordered by MD. cp 18:51 Discharged to home ambulatory. em 18:51 Condition: good 18:51 Discharge instructions given to patient, Instructed on discharge instructions, follow up and referral plans. medication usage, Demonstrated understanding of instructions, follow-up care, medications, Prescriptions given X 1. 18:52 Patient left the ED. em Signatures: Dispatcher [employer] Fina Brumfield mr Robbi Freitas, RN RN em Jimi Cervantes PA PA cp Loren Xiao RN RN jl7 Jese Horvath RN RN ll1
--- NOTE | 2020-01-16 18:44 | EDPHYS ---
Physician Documentation [facility] Name: Maria A Veloz Age: 19 yrs Sex: Female : 2000 Arrival Date: 01/16/2020 Time: 16:24 Bed 7 Private MD: ED Physician Jimi Landa HPI: 01/15 16:49 This 19 yrs old Female presents to ER via Ambulatory with complaints of cp Headache, Dizziness. 16:49 The patient complains of pain to the top of head, forehead, right congregation and left cp congregation. The patient describes the headache as aching, waxing and waning. Onset: The symptoms/episode began/occurred 1 week(s) ago. Associated signs and symptoms: Pertinent positives: dizziness, Pertinent negatives: altered mental status, fever, neck stiffness, paresthesias, Photophobia sinus congestion, sinus tenderness. Headache History: Other patient reports history of migraines. 16:50 Severity of symptoms: in the emergency department the pain a " 6" out of "10". cp Historical: - Allergies: 16:30 No Known Drug Allergies; ll1 16:31 TB test; ll1 16:31 Tape; ll1 - PMHx: 16:30 Asthma; Anemia; complications from child ; ll1 - PSHx: 16:30 Exploratory lap; ll1 - Immunization history:: Adult Immunizations up to date, Flu vaccine is not up to date. - Social history:: Patient/guardian denies using alcohol, street drugs, tobacco products, Smoking status: Patient denies any tobacco usage or history of. Patient/guardian denies using alcohol. ROS: 16:55 Constitutional: Negative for body aches, chills, fever, poor PO intake. cp 16:55 Eyes: Negative for injury, pain, redness, and discharge. cp 16:55 ENT: Negative for drainage from ear(s), ear pain, sore throat, difficulty swallowing, difficulty handling secretions. 16:55 Cardiovascular: Negative for chest pain, palpitations. 16:55 Respiratory: Negative for cough, shortness of breath, wheezing. 16:55 Abdomen/GI: Negative for abdominal pain, nausea, vomiting, and diarrhea. 16:55 : Positive for vaginal bleeding, Negative for urinary symptoms. 16:55 Skin: Negative for rash. 16:55 Neuro: Positive for dizziness, headache, Negative for altered mental status, syncope, weakness. 16:55 All other systems are negative. Exam: 17:00 Constitutional: The patient appears in no acute distress, alert, awake, non-toxic, well cp developed, well nourished. 17:00 Head/Face: Normocephalic, atraumatic. cp 17:00 Eyes: Periorbital structures: appear normal, Pupils: equal, round, and reactive to light and accomodation, Extraocular movements: intact throughout, Conjunctiva: normal, no exudate, no injection, Sclera: no appreciated abnormality, Lids and lashes: appear normal, bilaterally. 17:00 ENT: External ear(s): are unremarkable, Nose: is normal, Mouth: Lips: moist, Oral mucosa: pink and intact, moist, Posterior pharynx: is normal, airway is patent, no erythema, no exudate. 17:00 Neck: ROM/movement: is normal, is supple, without pain, no range of motions limitations, no meningismus. 17:00 Chest/axilla: Inspection: normal, Palpation: is normal, no crepitus, no tenderness. 17:00 Cardiovascular: Rate: normal, Rhythm: regular. 17:00 Respiratory: the patient does not display signs of respiratory distress, Respirations: normal, no use of accessory muscles, labored breathing, is not present. 17:00 Abdomen/GI: Inspection: abdomen appears normal, Palpation: abdomen is soft and non-tender, in all quadrants. 17:00 Neuro: Orientation: to person, place \\T\\ time. Mentation: is normal, Cerebellar function: is grossly normal, Motor: moves all fours, strength is normal, Sensation: is normal, Gait: is steady, at a normal pace, without difficulty. 17:12 ECG was reviewed by the Attending Physician. cp Vital Signs: 16:25 BP 132 / 80; Pulse 77; Resp 16; Temp 98.5; Pulse Ox 98% ; Weight 63.5 kg; Height 5 ft. ll1 4 in. (162.56 cm); Pain 6/10; 17:11 BP 103 / 68; Pulse 64; Resp 16; Pulse Ox 97% ; jl7 17:47 BP 118 / 77 Supine; Pulse 80; em 17:47 BP 123 / 91 Sitting; Pulse 82; em 17:47 BP 119 / 91 Standing; Pulse 74; em 16:25 Body Mass Index 24.03 (63.50 kg, 162.56 cm) ll1 MDM: 16:36 Patient medically screened. soren 18:42 Data reviewed: vital signs, nurses notes, lab test result(s), EKG, radiologic studies, cp CT scan, and as a result, I will discharge patient. 18:42 Differential diagnosis: migraine, tension headache, anemia. Counseling: I had a cp detailed discussion with the patient and/or guardian regarding: the historical points, exam findings, and any diagnostic results supporting the discharge/admit diagnosis, lab results, radiology results, the need for outpatient follow up, a family practitioner, to return to the emergency department if symptoms worsen or persist or if there are any questions or concerns that arise at home. Response to treatment: the patient's symptoms have mildly improved after treatment, and as a result, I will discharge patient. 01/15 16:47 Order name: CBC with Diff; Complete Time: 18:05 cp 01/15 18:06 Interpretation: Normal except: PLT 150; MPV 11.6. cp 01/15 16:47 Order name: BMP; Complete Time: 18:05 cp 01/15 16:47 Order name: CT Head Brain wo Cont; Complete Time: 18:18 cp 01/15 16:47 Order name: PT-INR; Complete Time: 18:05 cp 01/15 17:44 Order name: Urine Dipstick--Ancillary (enter results); Complete Time: 18:22 hb 01/15 18:22 Interpretation: Normal except: UBLD TRACE; UPH 8.0. cp 01/15 17:44 Order name: Urine --Ancillary (enter results); Complete Time: 18:22 hb 01/15 16:34 Order name: Orthostatics; Complete Time: 17:51 cp 01/15 16:34 Order name: Urine Dipstick-Ancillary (obtain specimen); Complete Time: 17:27 cp 01/15 16:34 Order name: Urine Test (obtain specimen); Complete Time: 17:27 cp 01/15 16:47 Order name: IV; Complete Time: 17:14 cp EC:12 Rate is 69 beats/min. Rhythm is regular. IA interval is normal. QRS interval is normal. cp QT interval is normal. T waves are Flattened in lead aVL. Interpreted by me. Reviewed by me. Administered Medications: No medications were administered Disposition: 01/16 05:42 Co-signature as Attending Physician, Jimi Landa MD I agree with the assessment and [facility] plan of care. Disposition: 01/16/20 18:43 Discharged to Home. Impression: Headache. - Condition is Stable. - Discharge Instructions: General Headache Without Cause. - Prescriptions for Ibuprofen 800 mg Oral Tablet - take 1 tablet by ORAL route every 8 hours As needed take with food; 30 tablet. - Medication Reconciliation Form, Thank You Letter, Antibiotic Education, Prescription Opioid Use form. - Follow up: Private Physician; When: 2 - 3 days; Reason: Recheck today's complaints. - Problem is new. - Symptoms have improved. Signatures: Dispatcher [employer] Jimi Rehman MD MD cha Munoz, Edgar, RN RN em Jimi Cervantes PA PA cp [place], Lynsay RN RN ll1 Corrections: (The following items were deleted from the chart) 01/15 18:52 18:43 01/16/2020 18:43 Discharged to Home. Impression: Headache. Condition is Stable. em Forms are Medication Reconciliation Form, Thank You Letter, Antibiotic Education, Prescription Opioid Use. Follow up: Private Physician; When: 2 - 3 days; Reason: Recheck today's complaints. Problem is new. Symptoms have improved. cp
[2020-01-16 19:36] VITALS: TEMP 98.5
[2020-01-16 19:37] VITALS: O2SAT 97
[2020-01-16 19:38] VITALS: BP 119/91
--- NOTE | 2020-01-17 11:23 | EKG ---
Test Date: 2020-01-16 Test Time: 17:07:12 Machine Leather Trimmer: KATH MEASUREMENT RESULTS: Intervals: Rate: 69 MD: 144 QRSD: 82 QT: 376 QTc: 402 [place]: P: 69 MD: 144 QRS: 82 T: 66 INTERPRETIVE STATEMENTS: Normal sinus rhythm with sinus arrhythmia Normal ECG Compared to ECG 04/06/2015 20:23:14 No significant changes Electronically Signed On 01-17-20 11:21:45 CDT by Emil Abdalla
== END 2020-01-16 18:52 | disposition home or self-care (01) ==
LOC: ER 16:11
DX: R51 Headache (principal); Z88.8 Allergy status to other drugs, medicaments and biological substances; Z91.048 Other nonmedicinal substance allergy status
CPT/HCPCS: 36415; 70450; 80048; 81003; 81025; 85025; 85610; 93005; 99284

== ENCOUNTER 2020-10-06 15:55 | Emergency (ER) | payer OTHER ==
--- OUTSIDE RECORDS SUMMARY | 2020-10-06 15:56 | XMS REPORT | Summary of Care ---
:2000 Author Organization [facility] - [facility] Address [address] [place] [address] Care Team Providers Name Role Phone Ronaldoteresintia Jade Barbour [facility] Provider [phone] Encounter Details Date Type Department Care Team Description 08/14/2020 Letter (Out) [facility] MyCCanoPt Message s Doctor Unassigned, No [address] [facility] [address] [address] [facility] [phone] [place] [address] Allergies No Known Allergiesdocumented as of this encounter (statuses as of 08/14/2020) Medications No known medicationsdocumented as of this encounter (statuses as of 08/14/2020) Active Problems Problem Noted Date Vertigo 10/09/2019 [...] as of this encounter (statuses as of 08/14/2020) Resolved Problems Problem Noted Date Resolved Date 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 Headache 02/13/2015 12/20/2018 Overview: ICD10 Diagnosis Term 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 documented as of this encounter (statuses as of 08/14/2020) Social History Tobacco Use Types Packs/Day Years Used Date Never Smoker Smokeless Tobacco: Never Used Alcohol Use Drinks/Week oz/Week Comments Not Asked Sex Assigned at Date Recorded Not on file documented as of this encounter Last Filed Vital Signs Not on filedocumented in this encounter Plan of Treatment Date Type Specialty Care Team Description 08/14/2020 Urgent Care Family Medicine Provider, [facility] Health Maintenance Due Date Last Done Comments VARICELLA VACCINES (1 of 2 - 2001 2-dose childhood series) MENINGOCOCCAL B VACCINES (1 of 2 - 2010 Risk Bexsero 2-dose series) HPV VACCINES (1 - 2-dose series) 2011 Depression Screening 2012 WELL CARE VISIT: 12-21 YEARS 2012 (yearly) DTaP,Tdap,and Td Vaccines (1 - 2019 Tdap) CHLAMYDIA SCREENING 04/19/2020 04/19/2019 INFLUENZA VACCINE (#1) 2020 MENINGOCOCCAL VACCINE Aged Out No longer eligible based on patient's age to complete this topic PNEUMOCOCCAL 0-64 YEARS COMBINED Aged Out No longer eligible based on SERIES patient's age to complete this topic documented as of this encounter Results Not on filedocumented in this encounter Insurance Payer Benefit Plan / Subscriber ID Effective Phone Address Kimberly cox [facility] [id number] 2019-Prese [address] Medic aid HEALTH CHOICE - HEALTH CHOICE nt [id number] 1 MANAGED MEDICAID [place], [place]ICA[place] [id number] documented as of this encounter
--- OUTSIDE RECORDS SUMMARY | 2020-10-06 15:56 | XMS REPORT | Continuity of Care Document ---
:2000 Author Organization [facility] t Address [address] [place] [address] Dr. Macario [address] [place] [address] Care Team Providers Name Role Phone Provider, Urgent Care Attending Clinician Unavailable Problems This patient has no known problems. Allergies, Adverse Reactions, Alerts This patient has no known allergies or adverse reactions. Medications This patient has no known medications. Procedures This patient has no known procedures. Encounters Start End Encounter Admission Attending Care Care Encounter Source Date/Time Date/Time Type Type Clinicians Facility Department ID 2020-10-04 2020-10-04 Urgent Provider, [facility] [id number] 12:54:03 13:14:03 Care [facility] [id number] Care [place] [id number] Professio [phone] nal [address] 2020-08-14 2020-08-14 Urgent Provider, [facility] [id number] 12:45:43 13:33:16 Care [facility] [id number] [facility] [id number] Professio [phone] nal [address] Results This patient has no known results.
--- OUTSIDE RECORDS SUMMARY | 2020-10-06 15:57 | XMS REPORT | Summary of Care ---
:2000 Author Organization [facility] Address [address] [place] [id number] Care Team Providers Name Role Phone Jade Rose Primary Care Provider [phone] Reason for Visit Reason Comments Sore Throat started yesterday RUNNY NOSE started yesterday Cough started yesterday Encounter Details Date Type Department Care Team Description 10/04/2020 Urgent Care [facility] Rochelle Emanuel FNP [address] [facility] [address] [place] [address] Viral illness (Primary Dx); Medicine - [place] Provider, [facility] Exposure to SARS-associated coronavirus [address] [place] [address] Allergies No Known Allergiesdocumented as of this encounter (statuses as of 10/04/2020) Medications No known medicationsdocumented as of this encounter (statuses as of 10/04/2020) Active Problems Problem Noted Date Vertigo 10/09/2019 [...] as of this encounter (statuses as of 10/04/2020) Resolved Problems Problem Noted Date Resolved Date 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 documented as of this encounter Last Filed Vital Signs Vital Sign Reading Time Taken Comments Blood Pressure 129/71 10/04/2020 1:00 PM MAKEUP ARTISTRY INSTRUCTOR Pulse 85 10/04/2020 1:00 PM MAKEUP ARTISTRY INSTRUCTOR Temperature 36.2 C (97.1 F) 10/04/2020 1:00 PM MAKEUP ARTISTRY INSTRUCTOR Respiratory Rate 18 10/04/2020 1:00 PM MAKEUP ARTISTRY INSTRUCTOR Oxygen Saturation 98% 10/04/2020 1:00 PM MAKEUP ARTISTRY INSTRUCTOR Inhaled Oxygen Concentration - - Weight 68 kg (150 lb) 10/04/2020 1:00 PM MAKEUP ARTISTRY INSTRUCTOR Height 160 cm (5' 3") 10/04/2020 1:00 PM MAKEUP ARTISTRY INSTRUCTOR Body Mass Index 26.57 10/04/2020 1:00 PM MAKEUP ARTISTRY INSTRUCTOR documented in this encounter Patient Instructions Patient InstructionsRochelle Buenrostro FNP - 10/04/2020 1:00 PM CST1. Viral illness Viral Illness -- No focus suspicious for a bacterial process. Educated patient that viral illness usually last 7-10 days and resolve with symptomatic treatment. - counseled patient about at home care: Use Advil Cold/Sinus as needed for fever and/or congestion Use Robitussin DM or Mucinex DM to help with cough Tylenol and Ibuprofen as needed for pain and fever Rest Raise head of bed Increase fluids -HYDRATION WITH CLEAR LIQUIDS Vitamin C Warm salt water gargles or CEPACOL sprays for sore throat. Breath humidified air (steam) SIPPING WARM DRINKS may help. Warm Compresses (if sinus pressure or pain). HAND HYGIENE (with alcohol gels or hand washing) Advised to take Tylenol or Ibuprofen as per label recommendation as needed for pain or fever Honey 10mL (2 teaspoons) has been shown to relieve cough at bedtime. Dark Chocolate helps with cough (xanthenes) Avoidance of cigarette smoke, alcoholic drinks, diving into deep water and air travel is useful. Irrigate your nose with normal saline moisture spray 2 or 3 times a day. You may use a spray, squeeze bottle, or nasal pot. ? Nasal Congestion (Stopped Up): Oxymetazoline HCl (Afrin, 4-Way, & more) 0.05 % nasal spray, 1 spray each nostril at bedtime. Limit to 5 nights. If use twice a day then limit to 3 days. - Advised to follow up with PCP, return to Urgent Care, or go to the nearest Emergency Department sooner for any new, worsening, persistent, or concerning symptoms. 2. Exposure to SARS-associated coronavirus - COVID-19 (MOLECULAR TESTING NUCLEIC ACID AMPLIFICATION) - Quarantine until your COVID results are back Criteria met - Covid testing - pending. This test can take 2-3 days to be resulted. While the test is pending...Please socially isolate your self - do not go out to stores or out in public. We will contact you once we have the results. If you are negative - continue with symptomatic treatment. (see below) Patients who have positive results will be contacted by the health department to enforce quarantine measures and for additional community contact tracing. The Infection Control Department will also undertake evaluation of exposures in our healthcare facility. If symptoms worsen - please call your Primary Care Doctor - do not go into the clinic. Call first. Educated on the following at home care: - Discussed likely viral diagnosis and treatment plan with pt. - pt advised on frequent effective handwashing - pt advised to increase fluid intake , stay hydrated and get plenty of rest. - advised to have the pt take OTC to treat symptoms. - Pt advised to administer Tylenol as per label recommendation as needed for pain or fever - Cover mouth when coughing, wear mask - Stay in your own bedroom and use a separate bathroom - Keep at least 6 feet from you and others - Avoid sharing personal household items, dishes, glasses, cups, towels -Clean high traffic/touch areas daily. These include but not limited to: doorknobs, refrigerator/cabinet handles, phones, keyboards, tablets, light switches. - AVS and Written/handout materials appropriate to problem and teaching provided. - advised to go to the nearest Emergency Department sooner for any new, worsening, persistent, or concerning symptoms - Patient verbalized understanding of all instructions - Follow-up with PCP as needed, if no improvement EDUCATION: Handouts given: Patient educated on plan of care for visit, swabbing technique,risks and benefits of test and lengthof time to receive results. Verbal consent obtained to perform test. CDC Fact Sheet for patients nCoV Diagnostic Panel dated 11/17/2019 provided. "What to do if you are sick with COVID-19" CDC information guide reviewed with the patient and handout given to patient Education given to self quarantine until results are back. Will notify patient with results. Patient states understanding and all questions answered. Plan of care, goals and medications discussed with patient. Patient voices understanding. Barriers to care: none Ability to manage care: good FOLLOW UP: Pt advised to call 911 or go to the nearest Emergency Department sooner for any worsening, persistent, or concerning symptoms ER precautions given Plan of care, desired health behaviors, goals, and medication discussed with patient. Education resources provided and reviewed with AVS. Patient/guardian/family verbalized understanding & agrees to plan of care. Urgent Care precautions and follow up : 1. Return to clinic if your symptoms should worsen or fail to improve within 72 hours. 2. The care provided in the urgent care was for acute problems only. 3. You should follow up with your primary care provider within 72 hours. 4. Make sure you are staying adequately hydrated. MAY FOLLOW-UP WITH A PROVIDER OF YOUR CHOICE, SUCH : 1. A PHYSICIAN OF YOUR CHOICE OR, IF YOU WISH TO FOLLOW-UP WITHIN THE [facility], MAY TRY THESE OPTIONS (CLINIC APPOINTMENTS AVAILABLE ON [id number] BASIS): 1. SCHEDULE AN APPOINTMENT ONLINE AT [facility] 2. OR CALL THE [facility] ACCESS CENTER AT OR 3. OR CALL YOUR [facility] PHYSICIAN'S OFFICE DIRECTLY IF YOU ARE ALREADY AN ESTABLISHED [facility] PATIENT. After [facility] care nurse access center available by calling [phone] 24 hours 7 days per week. Rochelle Buenrostro [facility] UP ARTISTRY INSTRUCTOR documented in this encounter Progress Notes Rochelle Buenrostro FNP - 10/04/2020 1:00 PM CST Cc: Chief Complaint Patient presents with Sore Throat started yesterday RUNNY NOSE started yesterday Cough started yesterday Maria A Veloz is a 20 year old female presents with concern for sore throat, runny nose and cough that started yesterday. Some post tusses emesis today. Her daughter is 2 y/o and sick with similar symptoms. She's not taking any otc medications. Denies any travel. She works at [employer] in and has been around positive contacts. Eating/drinking good. Denies any fever, chills or body aches. URI Presenting symptoms: congestion, cough, rhinorrhea and sore throat Presenting symptoms: no ear pain, no facial pain, no fatigue and no fever Congestion: Location: Nasal Interferes with sleep: no Interferes with eating/drinking: no Cough: Cough characteristics: Dry Severity: Mild Onset quality: Sudden Duration: 1 day Timing: Intermittent Progression: Unchanged Chronicity: New Rhinorrhea: Quality: Clear Severity: Mild Duration: 1 day Timing: Intermittent Progression: Unchanged Severity: Mild Onset quality: Sudden Duration: 1 day Timing: Intermittent Progression: Unchanged Chronicity: New Relieved by: None tried Worsened by: Nothing Ineffective treatments: None tried Associated symptoms: sneezing Associated symptoms: no arthralgias, no headaches, no myalgias, no neck pain, no sinus pain, no swollen glands and no wheezing Risk factors: sick contacts Risk factors: no immunosuppression, no recent illness and no recent travel Allergies Maria A has No Known Allergies. Medications No outpatient medications prior to visit. No facility-administered medications prior to visit. Histories Past Medical History: Diagnosis Date Acute [...] Luna MD; Location: Labor and Delivery - [place] Social History Socioeconomic History Marital status: Single Spouse name: Not on file Number of children: Not on file Years of education: Not on file Highest education level: Not on file Occupational History Occupation: unemployed Social Needs Financial resource strain: Not on file Food insecurity Worry: Not on file Inability: Not on file Transportation needs Medical: Not on file Non-medical: Not on file Tobacco Use Smoking status: Never Smoker Smokeless tobacco: Never Used Substance and Sexual Activity Alcohol use: Not on file Drug use: Not on file Sexual activity: Not on file Lifestyle Physical activity Days per week: Not on file Minutes per session: Not on file Stress: Not on file Relationships Social connections Talks on phone: Not on file Gets together: Not on file Attends latter day service: Not on file Active member of club or organization: Not on file Attends meetings of clubs or organizations: Not on file Relationship status: Not on file Intimate partner violence Fear of current or ex partner: Not on file Emotionally abused: Not on file Physically abused: Not on file Forced sexual activity: Not on file Other Topics Concern Not on file Social History Narrative Lives at home with mom and siblings. Family History Problem Relation Age of Onset Diabetes Mother Hypertension Mother Hypertension Father Review of Systems Constitutional: Negative for activity change, appetite change, chills, fatigue and fever. HENT: Positive for congestion, postnasal drip, rhinorrhea, sneezing and sore throat. Negative for ear pain and sinus pain. Respiratory: Positive for cough. Negative for shortness of breath, wheezing and stridor. Gastrointestinal: Positive for vomiting. Negative for diarrhea and nausea. Musculoskeletal: Negative for arthralgias, myalgias and neck pain. Skin: Negative for rash. Neurological: Negative for dizziness, weakness and headaches. All other systems reviewed and are negative. Vital Signs BP 129/71 | Pulse 85 | Temp 36.2 C (97.1 F) (Oral) | Resp 18 | Ht 5' 3" (1.6 m) | Wt 150 lb(68 kg) | SpO2 98% | BMI 26.57 kg/m Physical Exam Vitals signs and nursing note reviewed. Constitutional: Appearance: She is well-developed. HENT: Head: Normocephalic and atraumatic. Right Ear: Tympanic membrane, ear canal and external ear normal. Left Ear: Tympanic membrane, ear canal and external ear normal. Nose: Congestion and rhinorrhea present. No nasal tenderness. Mouth/Throat: Lips: [place]. Mouth: Mucous membranes are moist. Pharynx: Oropharynx is clear. Tonsils: 1+ on the right. 1+ on the left. Eyes: Conjunctiva/sclera: Conjunctivae normal. Neck: Musculoskeletal: Normal range of motion and neck supple. Cardiovascular: Rate and Rhythm: Normal rate and regular rhythm. Heart sounds: Normal heart sounds. No murmur. No friction rub. No gallop. Pulmonary: Effort: Pulmonary effort is normal. No accessory muscle usage or respiratory distress. Breath sounds: Normal breath sounds. No decreased breath sounds, wheezing, rhonchi or rales. Musculoskeletal: Normal range of motion. Skin: General: Skin is warm and dry. Findings: No rash. Neurological: Mental Status: She is alert and oriented to person, place, and time. Psychiatric: Behavior: Behavior normal. Assessment/Plan Maria A Velzo is a 20 year old female presents with concern for sore throat, runny nose and cough that started yesterday. 1. Viral illness Viral Illness -- No focus suspicious for a bacterial process. Educated patient that viral illness usually last 7-10 days and resolve with symptomatic treatment. - counseled patient about at home care: Use Advil Cold/Sinus as needed for fever and/or congestion Use Robitussin DM or Mucinex DM to help with cough Tylenol and Ibuprofen as needed for pain and fever Rest Raise head of bed Increase fluids -HYDRATION WITH CLEAR LIQUIDS Vitamin C Warm salt water gargles or CEPACOL sprays for sore throat. Breath humidified air (steam) SIPPING WARM DRINKS may help. Warm Compresses (if sinus pressure or pain). HAND HYGIENE (with alcohol gels or hand washing) Advised to take Tylenol or Ibuprofen as per label recommendation as needed for pain or fever Honey 10mL (2 teaspoons) has been shown to relieve cough at bedtime. Dark Chocolate helps with cough (xanthenes) Avoidance of cigarette smoke, alcoholic drinks, diving into deep water and air travel is useful. Irrigate your nose with normal saline moisture spray 2 or 3 times a day. You may use a spray, squeeze bottle, or nasal pot. ? Nasal Congestion (Stopped Up): Oxymetazoline HCl (Afrin, 4-Way, & more) 0.05 % nasal spray, 1 spray each nostril at bedtime. Limit to 5 nights. If use twice a day then limit to 3 days. - Advised to follow up with PCP, return to Urgent Care, or go to the nearest Emergency Department sooner for any new, worsening, persistent, or concerning symptoms. 2. Exposure to SARS-associated coronavirus - COVID-19 (MOLECULAR TESTING NUCLEIC ACID AMPLIFICATION) - Quarantine until your COVID results are back Criteria met - Covid testing - pending. This test can take 2-3 days to be resulted. While the test is pending...Please socially isolate your self - do not go out to stores or out in public. We will contact you once we have the results. If you are negative - continue with symptomatic treatment. (see below) Patients who have positive results will be contacted by the health department to enforce quarantine measures and for additional community contact tracing. The Infection Control Department will also undertake evaluation of exposures in our healthcare facility. If symptoms worsen - please call your Primary Care Doctor - do not go into the clinic. Call first. Educated on the following at home care: - Discussed likely viral diagnosis and treatment plan with pt. - pt advised on frequent effective handwashing - pt advised to increase fluid intake , stay hydrated and get plenty of rest. - advised to have the pt take OTC to treat symptoms. - Pt advised to administer Tylenol as per label recommendation as needed for pain or fever - Cover mouth when coughing, wear mask - Stay in your own bedroom and use a separate bathroom - Keep at least 6 feet from you and others - Avoid sharing personal household items, dishes, glasses, cups, towels -Clean high traffic/touch areas daily. These include but not limited to: doorknobs, refrigerator/cabinet handles, phones, keyboards, tablets, light switches. - AVS and Written/handout materials appropriate to problem and teaching provided. - advised to go to the nearest Emergency Department sooner for any new, worsening, persistent, or concerning symptoms - Patient verbalized understanding of all instructions - Follow-up with PCP as needed, if no improvement EDUCATION: Handouts given: Patient educated on plan of care for visit, swabbing technique,risks and benefits of test and lengthof time to receive results. Verbal consent obtained to perform test. CDC Fact Sheet for patients nCoV Diagnostic Panel dated 11/17/2019 provided. "What to do if you are sick with COVID-19" CDC information guide reviewed with the patient and handout given to patient Education given to self quarantine until results are back. Will notify patient with results. Patient states understanding and all questions answered. Plan of care, goals and medications discussed with patient. Patient voices understanding. Barriers to care: none Ability to manage care: good FOLLOW UP: Pt advised to call 911 or go to the nearest Emergency Department sooner for any worsening, persistent, or concerning symptoms ER precautions given Plan of care, desired health behaviors, goals, and medication discussed with patient. Education resources provided and reviewed with AVS. Patient/guardian/family verbalized understanding & agrees to plan of care. Urgent Care precautions and follow up : 1. Return to clinic if your symptoms should worsen or fail to improve within 72 hours. 2. The care provided in the urgent care was for acute problems only. 3. You should follow up with your primary care provider within 72 hours. 4. Make sure you are staying adequately hydrated. MAY FOLLOW-UP WITH A PROVIDER OF YOUR CHOICE, SUCH : 1. A PHYSICIAN OF YOUR CHOICE OR, IF YOU WISH TO FOLLOW-UP WITHIN THE [facility], MAY TRY THESE OPTIONS (CLINIC APPOINTMENTS AVAILABLE ON [id number] BASIS): 1. SCHEDULE AN APPOINTMENT ONLINE AT [facility] 2. OR CALL THE [facility] ACCESS CENTER AT OR 3. OR CALL YOUR [facility] PHYSICIAN'S OFFICE DIRECTLY IF YOU ARE ALREADY AN ESTABLISHED [facility] PATIENT. After hours care nurse access center available by calling [phone] 24 hours 7 days per week. Rochelle GARDNER [facility] documented in this encounter Plan of Treatment Name Type Priority Associated Diagnoses Order S caprile COVID-19 (MOLECULAR LAB Routine Exposure to SARS-asso ciated Ordered: 10/04/2020 TESTING coronavirus NUCLEIC ACID AMPLIFICATION) Health Maintenance Due Date Last Done Comments VARICELLA VACCINES (1 of 2 - 2001 2-dose childhood series) MENINGOCOCCAL B VACCINES (1 of 2 - 2010 Risk Bexsero 2-dose series) HPV VACCINES (1 - 2-dose series) 2011 Depression Screening 2012 WELL CARE VISIT: 12-21 YEARS 2012 (yearly) SARS-CoV-2 (COVID-19) Vaccine (1 2016 of 2) DTaP,Tdap,and Td Vaccines (1 - 2019 Tdap) CHLAMYDIA SCREENING 04/19/2020 04/19/2019 INFLUENZA VACCINE (#1) 2020 MENINGOCOCCAL VACCINE Aged Out No longer eligible based on patient's age to complete this topic PNEUMOCOCCAL 0-64 YEARS COMBINED Aged Out No longer eligible based on SERIES patient's age to complete this topic documented as of this encounter Results Not on filedocumented in this encounter Visit Diagnoses Diagnosis Viral illness - Primary Unspecified viral infection, in conditio ns classified elsewhere and of unspecified site Exposure to SARS-associated coronavirus documented in this encounter Additional Health Concerns Infection Onset Date Last Indicated Resolved Time COVID-19 Rule Out 10/04/2020 10/04/2020 documented as of this encounter Insurance Payer Benefit Plan / Subscriber ID Effective Phone Address [facility] [id number] 2019-Prese [address] Medic aid HEALTH CHOICE - HEALTH CHOICE nt [id number] 1 MANAGED MEDICAID [place], [place] MED[place]ID [id number] documented as of this encounter
--- OUTSIDE RECORDS SUMMARY | 2020-10-06 15:57 | XMS REPORT | Summary of Care ---
:2000 Author Organization [facility] Address [address] [place] [address] Care Team Providers Name Role Phone Jade Rose Angle CNDamaris Primary Care Provider Reason for Visit Reason Comments Sore Throat RUNNY NOSE Diarrhea Cough x 08/13/2020 Encounter Details Date Type Department Care Team Description 08/14/2020 Urgent Care [facility] Family Theodora Domenicamitchell amor, STEMHOLE BORER [facility] [address] [address] Sore throat (Primary Dx); [facility] Provider, [facility] URI, acute; [address] [place] [address] Exposure t o SARS-associated [place] [address] Allergies No Known Allergiesdocumented as of this encounter (statuses as of 08/14/2020) Medications Medication Sig Dispensed Refills Start Date End Date Status maalox:diphenhydrAMIN Take 10 mL by 120 mL 0 08/14/2020 Active E:lidocaine 2 % mouth 3 (three) viscous times daily as 1:1:1Indications: needed (Swish and URI, acute, Sore spit) for up to 5 throat days. documented as of this encounter (statuses as [...] Headache 02/13/2015 12/20/2018 Overview: ICD10 Diagnosis Term Marketing Coordinator Utility documented as of this encounter (statuses as of 08/14/2020) Social History Tobacco Use Types Packs/Day Years Used Date Never Smoker Smokeless Tobacco: Never Used Alcohol Use Drinks/Week oz/Week Comments Not Asked Sex Assigned at Date Recorded Not on file COVID-19 Exposure Response Date Recorded In the last month, have you been in contact with Yes 08/14/2020 12:58 PM PARKER someone who was confirmed or suspected to have Coronavirus / COVID-19? documented as of this encounter Last Filed Vital Signs Vital Sign Reading Time Taken Comments Blood Pressure 111/77 08/14/2020 1:03 PM PARKER Pulse 69 08/14/2020 1:03 PM PARKER Temperature 36.9 C (98.4 F) 08/14/2020 1:03 PM PARKER Respiratory Rate 17 08/14/2020 1:03 PM PARKER Oxygen Saturation 99% 08/14/2020 1:03 PM PARKER Inhaled Oxygen Concentration - - Weight 68 kg (150 lb) 08/14/2020 1:03 PM PARKER Height 160 cm (5' 3") 08/14/2020 1:03 PM PARKER Body Mass Index 26.57 08/14/2020 1:03 PM PARKER documented in this encounter Patient Instructions Patient InstructionsStephanie Yip FNP - 08/14/2020 1:00 PM PARKER Patient Education FOR SORE THROAT: Dont smoke, and avoid secondhand smoke. Try lozenges OTC as directed Drink warm liquids to soothe the throat and help thin mucus. Avoid alcohol, spicy foods, and acidic drinks such as orange juice. These can irritate the throat. Gargle with warm saltwater (1 teaspoon of salt to 8 ounces of warm water). Use a humidifier to keep air moist and relieve throat dryness. Try pbcv-mps-chwnfgp pain relievers such as acetaminophen or ibuprofen. Use as directed, and dont exceed the recommended dose. Educated on the following at home care for covid: -Take OTC Mucinex DM or Robitussin DM or tessalon (patient already has at home) as needed -Increase water intake -Take over the counter vitamin C/multivitamin with vitamin C -Take Tylenol as needed, avoid nsaids -REST -Wash hands often -Cover mouth when coughing -Wear mask with in the same room/car as others -Gargle with warm salt water as needed -Drink warm liquids as needed. -Throat lozenges as needed -Quarantine until your COVID results are back -Stay in your own bedroom and use a separate bathroom -Keep at least 6 feet from you and others -Avoid sharing personal household items, dishes, glasses, cups, towels -Clean high traffic/touch areas daily. These include but not limited to: doorknobs, refrigerator/cabinet handles, phones, keyboards, tablets, light switches. -Monitor your symptoms. Take your temperature 2 times daily. -Follow-up with PCP as needed, if no improvement. -Monitor your symptoms. Go to the ED if worsening symptoms: chest pain, difficulty breathing, coughing up blood, weakness, dizziness, passing out, AMS. -[facility] handout provided Self-Care for Sore Throats Sore throats happen for many reasons, such as colds, allergies, cigarette smoke, air pollution, and infections caused by viruses or bacteria. In any case, your throat becomes red and sore. Your goal for self-care is to reduce your discomfort while giving your throat a chance to heal. Moisten and soothe your throat Tips include the following: Try a sip of water first thing after waking up. Keep your throat moist by drinking6 or more glasses of clear liquids every day. Run a cool-air humidifier in your room overnight. Stay away from cigarette smoke. Check the air quality index,if air pollution gives you a sore throat. On high pollution days, tryto limit outdoor time. Suck on throat lozenges, cough drops, hard candy, ice chips, or frozen fruit- juice bars. Use the sugar-free versions if your diet or medical condition requires them. Gargle to ease irritation Gargling every hour or2 can ease irritation. Try gargling with1 of these solutions: 1/4teaspoon of salt in1/2 cup of warm water An ozzk-luw-umvawdc anesthetic gargle Use medicine for more relief Pyfn-ebz-ccqldbm medicine can reduce sore throat symptoms. Ask your pharmacist if you have questionsabout which medicine to use. To prevent possible medicine interactions, let the pharmacist know whatmedicines you take. To decrease symptoms: Ease pain with anesthetic sprays. Aspirin or an aspirin substitute also helps. Remember, never give aspirin to anyone 18 or younger. Don't take aspirin if you are alreadytaking blood thinners. For sore throats caused by allergies, try antihistamines to block the allergic reaction. Unless a sore throat is caused by a bacterial infection, antibiotics wont help you. Prevent future sore throats Prevention tips include: Stop smoking or reduce contact with secondhand smoke. Smoke irritates the tender throat lining. Limit contact with pets and with allergy-causing substances, such as pollen and mold. Wash your hands often when youre around someone with a sore throat or cold. This will keep viruses or bacteria from spreading. Limit outdoor time when air pollution is bad. Dont strain your vocal cords. When to call your healthcare provider Contact your healthcare provider if you have: Fever of 100.4F (38.0C) or higher, or as directed by your healthcare provider White spots on the throat Great Trouble swallowing A skin rash Recent exposure to someone else with strep bacteria Severe hoarseness and swollen glands in the neck or jaw Call 911 Call 911 if any of the following occur: Trouble breathing or catching your breath Drooling and problems swallowing Wheezing Unable to talk Feeling dizzy or faint Feeling of doom [employer] last reviewed this educational content on 05/05/201919997033-7419 The IDRI ([employer]). [address] [place] [address], [place] [address]. All rights reserved. This information is not intended as a substitute for professional medical care. Always follow your healthcare professional's instructions. ER documented in this encounter Progress Notes Stephanie Yip FNP - 08/14/2020 1:00 PM CST Cc: Chief Complaint Patient presents with Sore Throat RUNNY NOSE Diarrhea Cough x 08/13/2020 Maria A Veloz is a 20 year old female. Patient is here with URI symptoms as detailed below URI Presenting symptoms: cough, rhinorrhea and sore throat Cough: Cough characteristics: Dry Sputum characteristics: Nondescript Severity: Mild Onset quality: Gradual Timing: Intermittent Progression: Unchanged Chronicity: New Rhinorrhea: Quality: Clear Severity: Mild Timing: Intermittent Progression: Unchanged Severity: Moderate Onset quality: Gradual Timing: Constant Progression: Unchanged Chronicity: New Relieved by: Nothing Worsened by: Nothing Ineffective treatments: OTC medications Associated symptoms: no wheezing Risk factors: no sick contacts Allergies Maria A has No Known Allergies. [...] Luna MD; Location: Labor and Delivery - [place] Social History Socioeconomic History Marital status: Single [...] file Gets together: Not on file Attends pentecostal service: Not on file Active member of [...] Mother Hypertension Father Review of Systems Constitutional: Negative. HENT: Positive for rhinorrhea and sore throat. Negative for trouble swallowing and voice change. Respiratory: Positive for cough. Negative for apnea, choking, chest tightness, shortness of breath and wheezing. Cardiovascular: Negative. Negative for chest pain, palpitations and leg swelling. Gastrointestinal: Negative. Skin: Negative. Neurological: Negative. Endocrine: Endocrine negative Vital Signs BP 111/77 | Pulse 69 | Temp 36.9 C (98.4 F) (Oral) | Resp 17 | Ht 5' 3" (1.6 m) | Wt 150 lb(68 kg) | LMP 07/17/2020 | SpO2 99% | BMI 26.57 kg/m Physical Exam Vitals signs and nursing note reviewed. Constitutional: Appearance: She is well-developed. HENT: Head: Normocephalic. Right Ear: External ear normal. Left Ear: External ear normal. Nose: Nose normal. Neck: Musculoskeletal: Normal range of motion and neck supple. Cardiovascular: Rate and Rhythm: Normal rate and regular rhythm. Heart sounds: Normal heart sounds. No murmur. No friction rub. No gallop. Pulmonary: Effort: Pulmonary effort is normal. No respiratory distress. Breath sounds: Normal breath sounds. No wheezing or rales. Chest: Chest wall: No tenderness. Abdominal: General: Bowel sounds are normal. There is no distension. Palpations: Abdomen is soft. Tenderness: There is no abdominal tenderness. Skin: General: Skin is warm and dry. Capillary Refill: Capillary refill takes less than 2 seconds. Coloration: Skin is not pale. Findings: No erythema or rash. Neurological: Mental Status: She is alert and oriented to person, place, and time. Psychiatric: Mood and Affect: Mood normal. Assessment/Plan Sore throat (primary encounter diagnosis) Comment: Plan: POCT GRP A STREP (MOLECULAR), maalox:diphenhydrAMINE:lidocaine 2 % viscous 1:1:1 Dont smoke, and avoid secondhand smoke. Try lozenges OTC as directed Drink warm liquids to soothe the throat and help thin mucus. Avoid alcohol, spicy foods, and acidic drinks such as orange juice. These can irritate the throat. Gargle with warm saltwater (1 teaspoon of salt to 8 ounces of warm water). Use a humidifier to keep air moist and relieve throat dryness. Try giky-gfu-jxtphse pain relievers such as acetaminophen or ibuprofen. Use as directed, and dont exceed the recommended dose. URI, acute Comment: Plan: maalox:diphenhydrAMINE:lidocaine 2 % viscous 1:1:1 Exposure to SARS-associated coronavirus Comment: Plan: COVID-19 (MOLECULAR TESTING NUCLEIC ACID AMPLIFICATION), COVID-19 (MOLECULAR TESTING NUCLEIC ACID AMPLIFICATION), POCT FLU A AND B (MOLECULAR) Educated on the following at home care: -Take OTC Mucinex DM or Robitussin DM or tessalon (patient already has at home) as needed -Increase water intake -Take over the counter vitamin C/multivitamin with vitamin C -Take Tylenol as needed, avoid nsaids -REST -Wash hands often -Cover mouth when coughing -Wear mask with in the same room/car as others -Gargle with warm salt water as needed -Drink warm liquids as needed. -Throat lozenges as needed -Quarantine until your COVID results are back -Stay in your own bedroom and use a separate bathroom -Keep at least 6 feet from you and others -Avoid sharing personal household items, dishes, glasses, cups, towels -Clean high traffic/touch areas daily. These include but not limited to: doorknobs, refrigerator/cabinet handles, phones, keyboards, tablets, light switches. -Monitor your symptoms. Take your temperature 2 times daily. -Follow-up with PCP as needed, if no improvement. -Monitor your symptoms. Go to the ED if worsening symptoms: chest pain, difficulty breathing, coughing up blood, weakness, dizziness, passing out, AMS. -CDC handout provided Plan of care, desired health behaviors, goals, and medication discussed with patient. Education resources provided and reviewed with AVS. Patient/guardian/family verbalized understanding & agrees to plan of care. This visit did not involve counseling and coordination that comprised more than 50% of the visit time. If applicable, the [facility] database was accessed to review any controlled substance prescription claims data. The [employer] prescription claims data in [employer] was reviewed to assess patient compliance with the medication treatment plan. eagan Aelx RN - 08/14/2020 1:00 PM CST Patient educated on plan of care for visit, swabbing technique, risks and benefits of test and length of time to receive results. Verbal consent obtained to perform test. CDC Fact Sheet for Patients nCoV Diagnostic Panel dated 11/17/2019 provided. Maria A Veloz is a 20 year old female Chief Complaint Patient presents with Sore Throat RUNNY NOSE Diarrhea Cough x 08/13/2020 Vitals: 08/14/20 1303 BP: 111/77 Pulse: 69 Resp: 17 Temp: 36.9 C (98.4 F) TempSrc: Oral SpO2: 99% Weight: 150 lb (68 kg) Height: 5' 3" (1.6 m) [facility]/pharmacy #[id number] Patient AAOx4 and in no acute distress. All Vitals taken, allergies and all medications reviewed, fall risk assessed. Pain level 4. documented in this encounter Plan of Treatment Name Type Priority Associated Diagnoses Order S chedule COVID-19 (MOLECULAR LAB Routine Exposure to Expected : 08/14/2020, TESTING SARS-associated Expires: 021 NUCLEIC ACID coronavirus AMPLIFICATION) Health Maintenance Due Date Last Done Comments VARICELLA VACCINES (1 of 2 - 2001 2-dose childhood series) MENINGOCOCCAL B VACCINES (1 of 2 - 2010 Risk Bexsero 2-dose series) HPV VACCINES (1 - 2-dose series) 2011 Depression Screening 2012 WELL CARE VISIT: 12-21 YEARS 2012 (yearly) DTaP,Tdap,and Td Vaccines ( - 2019 Tdap) CHLAMYDIA SCREENING 04/19/2020 04/19/2019 INFLUENZA VACCINE (#1) 2020 MENINGOCOCCAL VACCINE Aged Out No longer eligible based on patient's age to complete this topic PNEUMOCOCCAL 0-64 YEARS COMBINED Aged Out No longer eligible based on SERIES patient's age to complete this topic documented as of this encounter Procedures Procedure Name Priority Date/Time Associated Diagnosis Comme nts POCT FLU A AND B STAT 08/14/2020 Exposure to Results for this (MOLECULAR) SARS-associated procedure ar e in the coronavirus results section . POCT GRP A STREP STAT 08/14/2020 Sore throat Results for this (MOLECULAR) procedure are i n the results section . documented in this encounter Results POCT FLU A AND B (MOLECULAR) (08/14/2020) Pathologist Sig nature POCT INFLUENZA A NEG Negative - Negative POCT INFLUENZA B NEG Negative - Negative Specimen Swab Narrative Performed At accurate development and interpretation of all internal controls POCT GRP A STREP (MOLECULAR) (08/14/2020) Pathologist Sig nature POCT GP A STREP NEG Negative - Negative Specimen Swab - THROAT Narrative Performed At accurate development and interpretation of all internal controls documented in this encounter Visit Diagnoses Diagnosis Sore throat - Primary Acute pharyngitis URI, acute Acute upper respiratory infections of un specified site Exposure to SARS-associated coronavirus documented in this encounter Additional Health Concerns Infection Onset Date Last Indicated Resolved Time COVID-19 Rule Out 08/14/2020 08/14/2020 documented as of this encounter Insurance Payer Benefit Plan / Subscriber ID Effective Phone Address [facility] [id number] 2019-Prese [address] Medic aid HEALTH CHOICE - [place] [id number] 1 MANAGED MEDICAID [place], [place] MEDICAID [phone] documented as of this encounter
--- OUTSIDE RECORDS SUMMARY | 2020-10-06 15:57 | XMS REPORT | Summary of Care ---
:2000 Author Organization [facility] Address [address] [place] [address] Care Team Providers Name Role Phone Jade Rose Angle CNDamaris Primary Care Provider [phone] Reason for Visit Reason Comments Sore Throat RUNNY NOSE Diarrhea Cough x 08/13/2020 Encounter Details Date Type Department Care Team Description 08/14/2020 Urgent Care [facility] Family Theodora Domenicamitchell amor, TENTMAKER [facility] [address] [address] Sore throat (Primary Dx); [facility] Provider, [facility] Urgent Care URI, acute; [address] [place] [address] Exposure t o SARS-associated [place] [address] Allergies No Known Allergiesdocumented as [...] Headache 02/13/2015 12/20/2018 Overview: ICD10 Diagnosis Term Pharmaceutical Representative Utility documented as of this encounter (statuses as of 08/14/2020) Social History Tobacco Use Types Packs/Day Years Used Date Never Smoker Smokeless Tobacco: Never Used Alcohol Use Drinks/Week oz/Week Comments Not Asked Sex Assigned at Date Recorded Not on file COVID-19 Exposure Response Date Recorded In the last month, have you been in contact with Yes 08/14/2020 12:58 PM IMAGING CENTER MANAGER someone who was confirmed or suspected to have Coronavirus / COVID-19? documented as of this encounter Last Filed Vital Signs Vital Sign Reading Time Taken Comments Blood Pressure 111/77 08/14/2020 1:03 PM IMAGING CENTER MANAGER Pulse 69 08/14/2020 1:03 PM IMAGING CENTER MANAGER Temperature 36.9 C (98.4 F) 08/14/2020 1:03 PM IMAGING CENTER MANAGER Respiratory Rate 17 08/14/2020 1:03 PM IMAGING CENTER MANAGER Oxygen Saturation 99% 08/14/2020 1:03 PM IMAGING CENTER MANAGER Inhaled Oxygen Concentration - - Weight 68 kg (150 lb) 08/14/2020 1:03 PM IMAGING CENTER MANAGER Height 160 cm (5' 3") 08/14/2020 1:03 PM IMAGING CENTER MANAGER Body Mass Index 26.57 08/14/2020 1:03 PM IMAGING CENTER MANAGER documented in this encounter Patient Instructions Patient InstructionsStephanie Yip FNP - 08/14/2020 1:00 PM IMAGING CENTER MANAGER Patient Education FOR SORE THROAT: Dont smoke, [...] air moist and relieve throat dryness. Try dvwn-enl-nxpchzh pain relievers such as acetaminophen or ibuprofen. [...] salt in1/2 cup of warm water An mxah-lzh-kjrabox anesthetic gargle Use medicine for more relief Rqgu-oso-nqztsow medicine can reduce sore throat symptoms. Ask [...] Feeling dizzy or faint Feeling of doom [employer] last reviewed this educational content on 05/05/201919992639-5978 The [employer]. [address] [place] [address], [place] [address]. All rights reserved. This information is not intended as a substitute for professional medical care. Always follow your healthcare professional's instructions. ING CENTER MANAGER documented in this encounter Progress Notes Stephanie [...] Luna MD; Location: Labor and Delivery - [place] Social History Socioeconomic History Marital status: Single [...] file Gets together: Not on file Attends jain service: Not on file Active member of [...] is well-developed. HENT: Head: Normocephalic. Right Ear: Hearing, tympanic membrane, ear canal and external ear normal. Left Ear: Hearing, tympanic membrane, ear canal and external ear normal. Nose: Nose normal. Mouth/Throat: Lips: [place]. Mouth: Mucous membranes are moist. Pharynx: Oropharynx is clear. No pharyngeal swelling, oropharyngeal exudate, posterior oropharyngeal erythema or uvula swelling. Neck: Musculoskeletal: Normal range of motion and [...] soft. Tenderness: There is no abdominal tenderness. Lymphadenopathy: Head: Right side of head: No submental, submandibular, tonsillar, preauricular or posterior auricular adenopathy. Left side of head: No submental, submandibular, tonsillar, preauricular or posterior auricular adenopathy. Cervical: No cervical adenopathy. Skin: General: Skin is warm and dry. [...] air moist and relieve throat dryness. Try fcem-ibu-wtcdsno pain relievers such as acetaminophen or ibuprofen. [...] of the visit time. If applicable, the [place] [employer] database was accessed to review any controlled substance prescription claims data. The [employer] prescription claims data in [employer] was reviewed to assess patient compliance with the medication treatment plan. eagan Alex RN - 08/14/2020 1:00 PM CST Patient [...] (68 kg) Height: 5' 3" (1.6 m) [facility]/pharmacy #[id number] Patient AAOx4 and in no acute [...] / Subscriber ID Effective Phone Address T e Group [facility] [id number] 2019-Prese [address] Medic aid HEALTH CHOICE - HEALTH CHOICE nt [id number] 1 MANAGED MEDICAID [place], [place] MEDICAID [phone] documented as of this encounter
--- NOTE | 2020-10-06 17:03 | ER ---
Nurse's Notes [facility] Name: Maria A Veloz Age: 20 yrs Sex: Female : 2000 Arrival Date: 10/06/2020 Time: 15:56 Bed Waiting Private MD: Diagnosis: Otitis media, unspecified, left ear;Acute upper respiratory infection, unspecified Presentation: 10/06 16:56 Chief complaint: Patient states: sore throat, cough, ear pain, bodyaches for 5 days. iw Coronavirus screen: congestion, cough unrelated to allergies, sore throat. Ebola Screen: Patient negative for fever greater than or equal to 101.5 degrees Fahrenheit, and additional compatible Ebola Virus Disease symptoms Patient denies exposure to infectious person. Patient denies travel to an Ebola-affected area in the 21 days before illness onset. No symptoms or risks identified at this time. Initial Sepsis Screen: Does the patient meet any 2 criteria? No. Patient's initial sepsis screen is negative. Does the patient have a suspected source of infection? No. Patient's initial sepsis screen is negative. Risk Assessment: Do you want to hurt yourself or someone else? Patient reports no desire to harm self or others. Onset of symptoms was October 01, 2020. 16:56 Method Of Arrival: Ambulatory iw 16:56 Acuity: SARAH 5 iw Triage Assessment: 17:02 General: Appears in no apparent distress. comfortable, Behavior is calm, cooperative. iw Pain: Denies pain. EENT: No deficits noted. No signs and/or symptoms were reported regarding the EENT system. BUILDING RENTAL MANAGER: 17:01 LMP 09/2020 iw Historical: - Allergies: 17:01 Tape; iw 17:01 tb test; iw - Home Meds: 17:01 None [Active]; iw - PMHx: 17:01 Anemia; Asthma; iw - PSHx: 17:01 Exploratory lap; iw - Immunization history:: Adult Immunizations up to date. - Social history:: Smoking status: Patient denies any tobacco usage or history of. Screenin:09 Abuse screen: Denies threats or abuse. Denies injuries from another. Nutritional iw screening: No deficits noted. Tuberculosis screening: No symptoms or risk factors identified. Fall Risk None identified. Assessment: 17:09 General: Appears in no apparent distress. Behavior is calm, cooperative. Neuro: Level iw of Consciousness is awake, alert, obeys commands. Respiratory: Airway is patent Respiratory effort is even, unlabored, Breath sounds are clear bilaterally. Respiratory: Reports cough that is. EENT: Throat is clear. Vital Signs: 16:56 BP 131 / 77; Pulse 62; Resp 18; Temp 96.7; Pulse Ox 99% ; Weight 68.04 kg; Height 5 ft. iw 3 in. (160.02 cm); Pain 0/10; 16:56 Body Mass Index 26.57 (68.04 kg, 160.02 cm) iw ED Course: 15:56 Patient arrived in ED. ds1 17:00 Triage completed. iw 17:02 [facility] Mc[facility]e [facility]-C [facility]. kb 17:02 Dexter Vo MD is Attending Physician. kb 17:02 Arm band placed on left wrist. iw 17:09 Sharmila Mckeon, RN is Primary Nurse. iw 17:10 No provider procedures requiring assistance completed. iw Administered Medications: No medications were administered Outcome: 17:03 Discharge ordered by MD. kb 17:10 Discharged to home ambulatory. iw 17:10 Condition: good 17:10 Discharge instructions given to patient, Instructed on discharge instructions, follow up and referral plans. medication usage, Demonstrated understanding of instructions, follow-up care, medications, Prescriptions given X 1. 17:10 Patient left the ED. iw Signatures: Pati Mcgee FNP-C FNP-Omid Liliana Mandujano ds1 Sharmila Mckeon, RN RN iw Corrections: (The following items were deleted from the chart) 17:01 17:01 Immunization history: Adult Immunizations not up to date, iw iw
--- NOTE | 2020-10-06 17:03 | EDPHYS ---
Physician Documentation [facility] Name: Maria A Veloz Age: 20 yrs Sex: Female : 2000 Arrival Date: 10/06/2020 Time: 15:56 Bed Waiting Private MD: ED Physician Dexter Vo HPI: 10/06 17:28 This 20 yrs old Female presents to ER via Ambulatory with complaints of Sore kb Throat, Cough, Ear Pain. 17:28 The patient or guardian reports cough, that is intermittent, described as moderate. kb Onset: The symptoms/episode began/occurred 5 day(s) ago. Severity of symptoms: At their worst the symptoms were mild, moderate. Modifying factors: The symptoms are alleviated by nothing, the symptoms are aggravated by nothing. Associated signs and symptoms: Pertinent positives: earache, sore throat, Pertinent negatives: chest pain, diarrhea, fever, nausea, rhinorrhea, vomiting. The patient has not experienced similar symptoms in the past. The patient has not recently seen a physician. Pt reports cough, congestion, sore throat, and ear pain for 5 days. Ear pain got worse. Has been tested for COVID and negative twice since symptom onset. 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 - Social history:: Smoking status: Patient denies any tobacco usage or history of. ROS: 17:26 Constitutional: Negative for fever, chills, and weight loss, Cardiovascular: Negative kb for chest pain, palpitations, and edema, Abdomen/GI: Negative for abdominal pain, nausea, vomiting, diarrhea, and constipation, Back: Negative for injury and pain, MS/Extremity: Negative for injury and deformity, Skin: Negative for injury, rash, and discoloration, Neuro: Negative for headache, weakness, numbness, tingling, and seizure. 17:26 ENT: Positive for ear pain, sore throat. 17:26 Respiratory: Positive for cough, Negative for dyspnea on exertion, hemoptysis, orthopnea, pleurisy, shortness of breath, sputum production, wheezing. Exam: 17:26 Constitutional: This is a well developed, well nourished patient who is awake, alert, kb and in no acute distress. Head/Face: Normocephalic, atraumatic. Chest/axilla: Normal chest wall appearance and motion. Nontender with no deformity. No lesions are appreciated. Cardiovascular: Regular rate and rhythm with a normal S1 and S2. No gallops, murmurs, or rubs. Normal PMI, no JVD. No pulse deficits. Respiratory: Lungs have equal breath sounds bilaterally, clear to auscultation and percussion. No rales, rhonchi or wheezes noted. No increased work of breathing, no retractions or nasal flaring. Abdomen/GI: Soft, non-tender, with normal bowel sounds. No distension or tympany. No guarding or rebound. No evidence of tenderness throughout. Skin: Warm, dry with normal turgor. Normal color with no rashes, no lesions, and no evidence of cellulitis. MS/ Extremity: Pulses equal, no cyanosis. Neurovascular intact. Full, normal range of motion. Neuro: Awake and alert, GCS 15, oriented to person, place, time, and situation. Cranial nerves II-XII grossly intact. Motor strength 5/5 in all extremities. Sensory grossly intact. Cerebellar exam normal. Normal gait. 17:26 ENT: External ear(s): are unremarkable, Ear canal(s): are normal, TM's: bulging, on the left, erythema, that is moderate, on the left, Nose: is normal, Mouth: is normal, Posterior pharynx: is normal. Vital Signs: 16:56 BP 131 / 77; Pulse 62; Resp 18; Temp 96.7; Pulse Ox 99% ; Weight 68.04 kg; Height 5 ft. iw 3 in. (160.02 cm); Pain 0/10; 16:56 Body Mass Index 26.57 (68.04 kg, 160.02 cm) iw MDM: 17:02 Patient medically screened. kb 17:25 Data reviewed: vital signs, nurses notes. Data interpreted: Pulse oximetry: on room air kb is 99 %. Interpretation: normal. Counseling: I had a detailed discussion with the patient and/or guardian regarding: the historical points, exam findings, and any diagnostic results supporting the discharge/admit diagnosis, the need for outpatient follow up, a family practitioner, to return to the emergency department if symptoms worsen or persist or if there are any questions or concerns that arise at home. Administered Medications: No medications were administered Disposition: 18:23 Co-signature as Attending Physician, Dexter Vo MD. ma2 Disposition: 10/06/20 17:03 Discharged to Home. Impression: Otitis media, unspecified, left ear, Acute upper respiratory infection, unspecified. - Condition is Stable. - Discharge Instructions: Otitis Media, Adult, Jiwu-[id number], Upper Respiratory Infection, Adult, [id number]-qr-[id number]. - Prescriptions for Amoxicillin 875 mg Oral Tablet - take 1 tablet by ORAL route every 12 hours for 10 days; 20 tablet. - Work release form, Medication Reconciliation Form, Thank You Letter, Antibiotic Education, Prescription Opioid Use form. - Follow up: Emergency Department; When: As needed; Reason: Worsening of condition. Follow up: Private Physician; When: 2 - 3 days; Reason: Recheck today's complaints, Continuance of care, Re-evaluation by your physician. Signatures: Pati Mcgee, MARINE DESIGNER-C MARINE DESIGNER-Ckb Sharmila Mckeon RN RN Dexter Vo MD MD ma2 Corrections: (The following items were deleted from the chart) 17:01 17:01 Immunization history: Adult Immunizations not up to date, [facility] 17:10 17:03 10/06/2020 17:03 Discharged to Home. Impression: Otitis media, unspecified, left iw ear; Acute upper respiratory infection, unspecified. Condition is Stable. Forms are Medication Reconciliation Form, Thank You Letter, Antibiotic Education, Prescription Opioid Use. Follow up: Emergency Department; When: As needed; Reason: Worsening of condition. Follow up: Private Physician; When: 2 - 3 days; Reason: Recheck today's complaints, Continuance of care, Re-evaluation by your physician. kb
[2020-10-06 17:20] VITALS: BP 131/77; TEMP 96.7; O2SAT 99
== END 2020-10-06 17:10 | disposition home or self-care (01) ==
LOC: ER 15:55
DX: J06.9 Acute upper respiratory infection, unspecified (principal); H66.92 Otitis media, unspecified, left ear; J45.909 Unspecified asthma, uncomplicated
CPT/HCPCS: 99282

== ENCOUNTER 2021-05-09 17:49 | Emergency (ER) | payer OTHER ==
--- OUTSIDE RECORDS SUMMARY | 2021-05-09 17:51 | XMS REPORT | Continuity of Care Document ---
:2000 Author Organization [facility] t Address [address] [place] [address] [address] [place] [address] Care Team Providers Name Role Phone Provider, [...] Facility Department ID 2020-10-04 2020-10-04 Urgent Provider, [facility] [id number] 12:54:03 13:14:03 Care [facility] [id number] Care [place] [id number] Professio [phone] [address]al [address] 2020-08-14 2020-08-14 Urgent Provider, [facility] [id number] 12:45:43 13:33:16 Care [facility] [id number] [facility] [id number] Profess[facility] [phone] nal [phone] Results This patient has no known results.
[2021-05-09 18:40] LABS: Absolute Lymphocytes (CBC) 1.4 K/uL (0.7-4.9); Basophils % 0.5 % (0-1.3); Hematocrit 37.3 % (36.0-45.0); Lymphocytes % 25.4 % (15.3-44.8); MPV 9.9 fL (7.6-11.3); RBC Red Blood Cell Count 4.24 M/uL (3.86-4.86)
[2021-05-09 18:45] LABS: BUN Blood Urea Nitrogen 11 mg/dL (7-18); Bicarbonate 25 mmol/L (21-32); Glucose Level 123 mg/dL (74-106); Potassium 3.6 mmol/L (3.5-5.1); Sodium Level 141 mmol/L (136-145)
[2021-05-09 20:24] LABS: Urine Blood 2+ (Negative); Urine Glucose Negative (Negative); Urine Protein Negative (Negative); Urine Specific Gravity 1.015 (1.005-1.030); Urine pH 7.5 (5.0-7.0)
[2021-05-09 21:43] LABS: Urine Specific Gravity/Preg 1.015 (1.005-1.030)
[2021-05-09] MEDS ORDERED: MECLIZINE HCL 12.5 MG TAB ONE (21:48)
--- NOTE | 2021-05-09 22:02 | RAD REPORT ---
EXAM DESCRIPTION: CT - Head Brain Wo Cont - 05/09/2021 9:47 pm CLINICAL HISTORY: DIZZINESS COMPARISON: Head Brain Wo Cont dated 01/16/2020; HEAD BRAIN W O CONTRAST dated 04/06/2015 TECHNIQUE: All CT scans are performed using dose optimization technique as appropriate and may inclu de automated exposure control or mA/KV adjustment according to patient size. FINDINGS: No intracranial hemorrhage, hydrocephalus or extra-axial fluid collection.No areas of brai n edema or evidence of midline shift. Partially imaged Chiari 1 malformation. The paranasal sinuses and mastoids are clear. The calvarium is intact. IMPRESSION: No acute intracranial abnormality.
--- NOTE | 2021-05-09 22:44 | ER ---
Nurse's Notes [facility] Name: Maria A Veloz Age: 21 yrs Sex: Female : 2000 Arrival Date: 05/09/2021 Time: 17:52 Bed 13 Private MD: Diagnosis: Dizziness and giddiness;Syncope Near Presentation: 05/09 18:16 Chief complaint: Patient states: dizziness since yesterday on and off. Pt states "I am aa5 anemic so I am not sure if it's that or maybe I am dehydrated". Coronavirus screen: At this time, the client does not indicate any symptoms associated with coronavirus-19. Ebola Screen: Patient negative for fever greater than or equal to 101.5 degrees Fahrenheit, and additional compatible Ebola Virus Disease symptoms. Initial Sepsis Screen: Does the patient meet any 2 criteria? No. Patient's initial sepsis screen is negative. Does the patient have a suspected source of infection? No. Patient's initial sepsis screen is negative. Risk Assessment: Do you want to hurt yourself or someone else? Patient reports no desire to harm self or others. Onset of symptoms was May 2021. 18:16 Method Of Arrival: Ambulatory aa5 18:16 Acuity: SARAH 3 aa5 Triage Assessment: 22:29 General: Behavior is calm, cooperative. 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 - Social history:: Smoking status: Patient denies any tobacco usage or history of. Screenin:26 Abuse screen: Denies threats or abuse. Nutritional screening: No deficits noted. cc4 Tuberculosis screening: No symptoms or risk factors identified. Fall Risk. Fall Risk Total Tejada Fall Scale indicates High Risk Score (45 or more points). Fall prevention measures have been instituted. Side Rails Up X 2 Placed Close to Nursing Station As available patient and family educated on Fall Prevention Program and Strategies. Exposure risk/Travel Screening: None identified. Assessment: 22:17 General: Appears in no apparent distress. well developed, well nourished. Pain: Denies cc4 pain. Neuro: No deficits noted. Reports dizziness, c/o intermittent vertigo x 2 days. Cardiovascular: No deficits noted. Respiratory: No deficits noted. GI: No deficits noted. No signs and/or symptoms were reported involving the gastrointestinal system. : No deficits noted. EENT: No deficits noted. Derm: No deficits noted. Musculoskeletal: No deficits noted. Vital Signs: 18:16 BP 125 / 67; Pulse 81; Resp 16 S; Temp 97.1(TE); Pulse Ox 97% on R/A; Weight 71.67 kg aa5 (R); Height 5 ft. 3 in. (160.02 cm) (R); 22:14 BP 114 / 71 Supine; Pulse 66; Resp 20; cc4 22:14 BP 114 / 83 Sitting; Pulse 82; Resp 22; cc4 22:14 BP 116 / 81 Standing; Pulse 86; Resp 20; cc4 23:20 BP 116 / 75; Pulse 79; Resp 20; Temp 98.2(A); cc4 23:20 Pulse Ox 100% on R/A; cc4 18:16 Body Mass Index 27.99 (71.67 kg, 160.02 cm) aa5 ED Course: 17:52 Patient arrived in ED. as 18:16 Arm band placed on. aa5 18:17 Triage completed. aa5 18:27 Initial lab(s) drawn, by ED staff, sent to lab. Inserted saline lock: 20 gauge in right iw antecubital area, using aseptic technique. Blood collected. 20:35 Jimi Cervantes PA is PHCP. cp 20:35 Crescencio Monge MD is Attending Physician. cp 21:15 Cecily Cortez is Primary Nurse. cc4 22:00 CT Head Brain wo Cont In Process Unspecified. EDMS 22:02 XRAY Chest (1 view) In Process Unspecified. EDMS 22:28 No provider procedures requiring assistance completed. cc4 22:29 Patient has correct armband on for positive identification. Placed in gown. Bed in low cc4 position. Side rails up X 1. 23:35 IV discontinued, bleeding controlled, Pressure dressing applied. cc4 Administered Medications: 21:28 Drug: Meclizine 25 mg Route: PO; cc4 23:36 Follow up: Response: Marked relief of symptoms cc4 Outcome: 22:29 Condition: stable cc4 22:43 Discharge ordered by . cp 23:20 Discharged to home ambulatory. cc4 23:20 Discharge instructions given to patient, Instructed on discharge instructions, follow up and referral plans. medication usage, Instructed to f/u with primary physician in 1-2 days; return to ED if needed for continued complaints or worsening of condition with v/u. Demonstrated understanding of instructions, follow-up care, medications, Prescriptions given X 1. 23:37 Patient left the ED. cc4 Signatures: Dispatcher [employer] Marycruz Neely Irene, RN RN Oxana Jones RN RN aa5 Jimi Cervantes PA PA cp Cooper, Christie cc4
--- NOTE | 2021-05-09 22:44 | EDPHYS ---
Physician Documentation [facility] Name: Maria A Veloz Age: 21 yrs Sex: Female : 2000 Arrival Date: 05/09/2021 Time: 17:52 Bed 13 Private MD: ED Physician Crescencio Monge HPI: 05/09 21:05 This 21 yrs old Female presents to ER via Ambulatory with complaints of cp Dizziness. 21:05 The patient presents with dizziness, feeling faint, lightheadedness. cp 21:05 Onset: The symptoms/episode began/occurred yesterday. cp 21:05 Context: just prior to the episode the patient experienced palpitations. Associated cp signs and symptoms: Pertinent positives: near-syncope, syncope, Pertinent negatives: abdominal pain, chest pain, confusion, focal weakness, headache, tingling, vomiting. Severity of symptoms: in the emergency department the symptoms are unchanged despite home interventions. Patient's baseline: Neuro: alert and fully oriented, Motor: no deficits, Ambulation: walks without assistance, Speech: normal. 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 - Social history:: Smoking status: Patient denies any tobacco usage or history of. ROS: 21:10 Neuro: Positive for dizziness, syncope, near syncope, Negative for altered mental cp status, headache, weakness. 21:10 Constitutional: Negative for body aches, fever, poor PO intake. cp 21:10 Cardiovascular: Positive for palpitations, Negative for chest pain, edema. 21:10 Respiratory: Negative for cough, shortness of breath, wheezing. 21:10 Eyes: Negative for injury, pain, redness, and discharge. cp 21:10 ENT: Negative for ear pain, sore throat, difficulty swallowing, difficulty handling cp secretions. 21:10 Abdomen/GI: Negative for abdominal pain, nausea, vomiting, and diarrhea, anorexia, black/tarry stool, rectal bleeding. 21:10 : Negative for urinary symptoms, vaginal bleeding. 21:10 All other systems are negative. Exam: 21:15 Constitutional: The patient appears in no acute distress, alert, awake, cp non-diaphoretic, non-toxic, well developed, well nourished. 21:15 Head/Face: Normocephalic, atraumatic. cp 21:15 Eyes: Periorbital structures: appear normal, Pupils: equal, round, and reactive to light and accomodation, Extraocular movements: intact throughout, Conjunctiva: normal, no exudate, no injection, Sclera: no appreciated abnormality, Lids and lashes: appear normal, bilaterally. 21:15 ENT: External ear(s): are unremarkable, Ear canal(s): are normal, clear, TM's: dullness, bilaterally, Nose: is normal, Mouth: Lips: moist, Oral mucosa: moist, Posterior pharynx: Airway: no evidence of obstruction, patent. 21:15 Neck: ROM/movement: is normal, is supple, without pain, no range of motions limitations, no nuchal rigidity. 21:15 Chest/axilla: Inspection: normal. 21:15 Cardiovascular: Rate: normal, Rhythm: regular, Heart sounds: murmur, not appreciated, Edema: is not appreciated. 21:15 Respiratory: the patient does not display signs of respiratory distress, Respirations: normal, no use of accessory muscles, no retractions, labored breathing, is not present, Breath sounds: are clear throughout, no decreased breath sounds, no stridor, no wheezing. 21:15 Abdomen/GI: Inspection: abdomen appears normal, Palpation: abdomen is soft and non-tender, in all quadrants. 21:15 Back: pain, is absent, ROM is normal. 21:15 Neuro: Orientation: to person, place \T\ time. Mentation: is normal, Cerebellar function: Romberg testing is negative, Motor: moves all fours, strength is normal, Sensation: is normal. 22:07 ECG was reviewed by the Attending Physician. cp Vital Signs: 18:16 BP 125 / 67; Pulse 81; Resp 16 S; Temp 97.1(TE); Pulse Ox 97% on R/A; Weight 71.67 kg aa5 (R); Height 5 ft. 3 in. (160.02 cm) (R); 22:14 BP 114 / 71 Supine; Pulse 66; Resp 20; cc4 22:14 BP 114 / 83 Sitting; Pulse 82; Resp 22; cc4 22:14 BP 116 / 81 Standing; Pulse 86; Resp 20; cc4 23:20 BP 116 / 75; Pulse 79; Resp 20; Temp 98.2(A); cc4 23:20 Pulse Ox 100% on R/A; cc4 18:16 Body Mass Index 27.99 (71.67 kg, 160.02 cm) aa5 MDM: 20:50 Patient medically screened. 22:00 Differential diagnosis: cardiac arrhythmia, generalized weakness, GI bleed, cp hypovolemia, , vertigo, anemia. 22:42 Data reviewed: vital signs, nurses notes, lab test result(s), EKG, radiologic studies, cp CT scan, plain films. 22:43 Test interpretation: by ED physician or midlevel provider: ECG, plain radiologic cp studies. 22:43 Counseling: I had a detailed discussion with the patient and/or guardian regarding: the cp historical points, exam findings, and any diagnostic results supporting the discharge/admit diagnosis, lab results, radiology results, to return to the emergency department if symptoms worsen or persist or if there are any questions or concerns that arise at home. Response to treatment: the patient's symptoms have mildly improved after treatment, and as a result, I will discharge patient. ED course: VSS. Patient reports symptoms improved with meds. Labs, EKG and cxray reviewed. Will discharge to home for continued monitoring. 05/09 18:42 Order name: CBC with Automated Diff; Complete Time: 21:00 EDMS 05/09 21:00 Interpretation: Normal except: PLT 149. 05/09 18:45 Order name: Basic Metabolic Panel; Complete Time: 21:00 EDWI 05/09 20:24 Order name: Urine Dipstick-Ancillary; Complete Time: 21:00 EDMS 05/09 21:02 Order name: CT Head Brain wo Cont; Complete Time: 22:14 05/09 22:14 Interpretation: Report reviewed. 05/09 21:40 Order name: Urine --Ancillary (enter results) lp1 05/09 21:44 Order name: Urine --Ancillary; Complete Time: 22:14 EDWI 05/09 21:02 Order name: Urine Dipstick-Ancillary (obtain specimen); Complete Time: 21:40 05/09 21:02 Order name: Urine Test (obtain specimen); Complete Time: 21:40 cp 05/09 21:02 Order name: EKG; Complete Time: 21:20 cp 05/09 21:02 Order name: EKG - Nurse/Tech; Complete Time: 22:12 cp 05/09 21:02 Order name: XRAY Chest (1 view) cp 05/09 21:22 Order name: Orthostatics; Complete Time: 22:12 cp EC:07 Rate is 73 beats/min. Rhythm is regular. TX interval is normal. QRS interval is normal. cp QT interval is normal. T waves are Inverted in lead aVR. Interpreted by me. Reviewed by me. Administered Medications: 21:28 Drug: Meclizine 25 mg Route: PO; cc4 23:36 Follow up: Response: Marked relief of symptoms cc4 Disposition: 05/10 07:41 Co-signature as Attending Physician, Crescencio Monge MD. [email or web address] Disposition Summary: 05/09/21 22:43 Discharge Ordered Location: Home cp Problem: new cp Symptoms: have improved cp Condition: Stable cp Diagnosis - Dizziness and giddiness cp - Syncope Near cp Followup: cp - With: Private Physician - When: 1 - 2 days - Reason: Recheck today's complaints Discharge Instructions: - Discharge Summary Sheet cp - Dizziness cp - Near-Syncope cp - Form - Excuse from Work, School, or Physical Activity cp Forms: - Medication Reconciliation Form cp - Thank You Letter cp - Antibiotic Education cp - Prescription Opioid Use cp - Work release form cc4 Prescriptions: - Meclizine 25 mg Oral Tablet - take 1 tablet by ORAL route every 8 hours As needed; 30 tablet; Refills: 0, cp Product Selection Permitted Signatures: Dispatcher [employer] Oxana Ruiz, RN RN aa5 iJmi Cervantes PA PA cp Crescencio Monge MD MD 7 Cecily Cortez [facility]
[2021-05-09 23:58] VITALS: BP 116/75; TEMP 98.2; O2SAT 100
--- NOTE | 2021-05-10 09:27 | RAD REPORT ---
EXAM DESCRIPTION: Priti Single View05/09/2021 10:02 pm CLINICAL HISTORY: Dizziness COMPARISON: 2014 FINDINGS: The lungs appear clear of acute infiltrate. The heart is normal size IMPRESSION: No acute abnormalities displayed
--- NOTE | 2021-05-11 10:59 | EKG ---
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
== END 2021-05-09 23:37 | disposition home or self-care (01) ==
LOC: ER 17:49
DX: R55 Syncope and collapse (principal); Z91.048 Other nonmedicinal substance allergy status
CPT/HCPCS: 36415; 70450; 71045; 80048; 81003; 81025; 85025; 93005; 99284

== ENCOUNTER 2021-07-12 14:48 | Emergency (ER) | payer OTHER ==
[2021-07-12 16:10] LABS: SARS-COV-2 RT PCR NEGATIVE (NEGATIVE)
--- NOTE | 2021-07-12 16:45 | ER ---
Nurse's Notes [facility] Name: Maria A Veloz Age: 21 yrs Sex: Female : 2000 Arrival Date: 07/12/2021 Time: 14:51 Bed 12 Private MD: Diagnosis: Acute upper respiratory infection, unspecified Presentation: 07/12 14:57 Chief complaint: Patient states: cough, congestion, sore throat, runny nose, diarrhea aa5 that began 07/07/21. Pt also reports pineda ear pain. Pt reports negative COVID-19/strep/and flu swabs on 07/08/21. Coronavirus screen: congestion, cough unrelated to allergies. Ebola Screen: No symptoms or risks identified at this time. Initial Sepsis Screen: Does the patient meet any 2 criteria? No. Patient's initial sepsis screen is negative. Does the patient have a suspected source of infection? No. Patient's initial sepsis screen is negative. Risk Assessment: Do you want to hurt yourself or someone else? Patient reports no desire to harm self or others. Onset of symptoms was July 2021. 14:57 Method Of Arrival: Ambulatory aa5 14:57 Acuity: SARAH 4 aa5 Triage Assessment: 15:09 General: Appears in no apparent distress. Behavior is calm, cooperative. Pain: jh5 Complains of pain in head, chest, abdomen, pelvis, right arm, left arm, right leg and left leg. Neuro: Level of Consciousness is awake, alert, obeys commands, Oriented to person, place, time, situation. Cardiovascular: No deficits noted. Capillary refill < 3 seconds Patient's skin is warm and dry. Respiratory: Airway is patent Trachea midline Respiratory effort is even, unlabored. 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 - Social history:: Smoking status: Patient denies any tobacco usage or history of. Screenin:09 Abuse screen: Denies threats or abuse. Denies injuries from another. Nutritional 5 screening: No deficits noted. Tuberculosis screening: No symptoms or risk factors identified. Fall Risk None identified. Assessment: 15:16 Reassessment: in triage assessment. [facility] Vital Signs: 14:57 BP 117 / 87; Pulse 90; Resp 18 S; Temp 97.5(TE); Pulse Ox 98% on R/A; Weight 71.21 kg aa5 (R); Height 5 ft. 3 in. (160.02 cm) (R); 16:41 BP 112 / 72; Pulse 88; Resp 18; Pulse Ox 98% ; jh5 14:57 Body Mass Index 27.81 (71.21 kg, 160.02 cm) [facility] ED Course: 14:51 Patient arrived in ED. as 14:54 Pati Mcgee FNP-C is [facility]. kb 14:54 Izabela Wills MD is Attending Physician. kb 14:57 Arm band placed on. aa 14:58 Triage completed. [facility] 15:07 Gina Leiva, RN is Primary Nurse. [facility] 15:25 No provider procedures requiring assistance completed. Patient did not have IV access [facility] during this emergency room visit. 15:26 Patient has correct armband on for positive identification. Bed in low position. Call [facility] light in reach. Side rails up X 1. Administered Medications: No medications were administered Outcome: 16:44 Discharge ordered by MD. kb 16:53 Patient left the ED. [facility] Signatures: Pati Mcgee FNP-C MARRIAGE AND FAMILY TEACHER-Marycruz Mock Audri, RN RN [facility] Gina Leiva, COURTNEY RN [facility] Corrections: (The following items were deleted from the chart) 14:59 14:57 BP 117 / 87; Pulse 90bpm; Resp 18bpm; Spontaneous; Pulse Ox 98% RA; Temp 97.5F aa5 Temporal; aa5 15:00 14:57 Chief complaint: Patient states: cough, congestion, sore throat, runny nose, 5 diarrhea that began 07/07/21. Pt also reports pineda ear pain. [facility] 15:29 15:25 SARS-COV-2 RT PCR+MOL.LAB.BRZ drawn and sent. [facility] EDMS 15:30 15:25 Influenza Screen (A \T\ B)+BA.LAB.BRZ drawn and sent. [facility] EDMS
--- NOTE | 2021-07-12 16:45 | EDPHYS ---
Physician Documentation [facility] Name: Maria A Veloz Age: 21 yrs Sex: Female : 2000 Arrival Date: 07/12/2021 Time: 14:51 Bed 12 Private MD: ED Physician Izabela Wills HPI: 07/12 16:03 This 21 yrs old Female presents to ER via Ambulatory with complaints of Flu kb Symptoms. 16:03 The patient or guardian reports cough, that is intermittent, described as moderate. kb Onset: The symptoms/episode began/occurred 5 day(s) ago. Severity of symptoms: At their worst the symptoms were moderate, in the emergency department the symptoms are unchanged. Modifying factors: The symptoms are alleviated by nothing, the symptoms are aggravated by nothing. Associated signs and symptoms: Pertinent positives: diarrhea, earache, rhinorrhea, sore throat, Pertinent negatives: chest pain, fever, nausea, vomiting. The patient has not experienced similar symptoms in the past. The patient has not recently seen a physician. Pt reports cough, congestion, runny nose, diarrhea, sore throat and ear pain for 5 days. States she was tested for flu, strep and covid the day after symptoms began and they were negative. Denies fever. States a coworker was recently diagnosed with the flu. 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 - Social history:: Smoking status: Patient denies any tobacco usage or history of. ROS: 16:02 Constitutional: Negative for fever, chills, and weight loss. kb 16:02 ENT: Positive for ear pain, rhinorrhea, sinus congestion, sore throat. 16:02 Respiratory: Positive for cough, Negative for dyspnea on exertion, hemoptysis, orthopnea, pleurisy, shortness of breath, sputum production, wheezing. 16:02 Abdomen/GI: Positive for diarrhea, Negative for abdominal pain, nausea and vomiting. 16:02 All other systems are negative. Exam: 16:03 Constitutional: This is a well developed, well nourished patient who is awake, alert, kb and in no acute distress. Head/Face: Normocephalic, atraumatic. ENT: Moist Mucous membranes Cardiovascular: Regular rate and rhythm with a normal S1 and S2. No gallops, murmurs, or rubs. No pulse deficits. Respiratory: Respirations even and unlabored. No increased work of breathing, no retractions or nasal flaring. Abdomen/GI: Soft, non-tender. No distention Skin: Warm, dry with normal turgor. Normal color. MS/ Extremity: Pulses equal, no cyanosis. Neurovascular intact. Full, normal range of motion. Neuro: Awake and alert, GCS 15, oriented to person, place, time, and situation. Moves all extremities. Normal gait. Psych: Awake, alert, with orientation to person, place and time. Behavior, mood, and affect are within normal limits. Vital Signs: 14:57 BP 117 / 87; Pulse 90; Resp 18 S; Temp 97.5(TE); Pulse Ox 98% on R/A; Weight 71.21 kg aa5 (R); Height 5 ft. 3 in. (160.02 cm) (R); 16:41 BP 112 / 72; Pulse 88; Resp 18; Pulse Ox 98% ; jh5 14:57 Body Mass Index 27.81 (71.21 kg, 160.02 cm) aa5 MDM: 15:01 Patient medically screened. kb 16:02 Data reviewed: vital signs, nurses notes. Data interpreted: Pulse oximetry: on room air kb is 98 %. Interpretation: normal. 16:13 Counseling: I had a detailed discussion with the patient and/or guardian regarding: the kb historical points, exam findings, and any diagnostic results supporting the discharge/admit diagnosis, lab results, the need for outpatient follow up, a family practitioner, to return to the emergency department if symptoms worsen or persist or if there are any questions or concerns that arise at home. 07/12 15:29 Order name: COVID-19/FLU A+B; Complete Time: 16:13 EDMS Administered Medications: No medications were administered Disposition: 07/13 09:07 Co-signature as Attending Physician, Izabela Wills MD I agree with the assessment and sp3 plan of care. Disposition Summary: 07/12/21 16:44 Discharge Ordered Location: Home kb Condition: Stable kb Diagnosis - Acute upper respiratory infection, unspecified kb Followup: kb - With: Emergency Department - When: As needed - Reason: Worsening of condition Followup: kb - With: Private Physician - When: 2 - 3 days - Reason: Recheck today's complaints, Continuance of care, Re-evaluation by your physician Discharge Instructions: - Upper Respiratory Infection, Adult, [id number] kb - Viral Respiratory Infection, [id number] kb - Discharge Summary Sheet tw2 Forms: - Medication Reconciliation Form kb - Thank You Letter kb - Antibiotic Education kb - Work release form tw2 - Prescription Opioid Use kb Signatures: Dispatcher [employer] EDMS Pati Mcgee, CONTACT CENTER AGENT-C CONTACT CENTER AGENT-Oxana Olson, RN RN aa5 Izabela Wills MD MD sp3 Gina Leiva RN RN jh5 Corrections: (The following items were deleted from the chart) 07/12 15:29 15:03 SARS-COV-2 RT PCR+MOL.LAB.BRZ ordered. EDMS EDMS 15:30 15:03 Influenza Screen (A \T\ B)+BA.LAB.BRZ ordered. EDMS EDMS
[2021-07-12 18:55] VITALS: BP 112/72; O2SAT 98
--- OUTSIDE RECORDS SUMMARY | 2021-07-17 16:30 | XMS REPORT | Continuity of Care Document ---
:2000 Author Organization [facility] t Address [facility] [place] [address] Care Team Providers Name Role Phone EDEMEKONG Primary Care Physician Unavailable EDEMEKONG Attending Clinician Unavailable Darron VALDEZ, T Attending Clinician Unavailable EBRAHIM Attending Clinician Unavailable Ebrahim BUSINESS RULES ANALYST Attending Clinician Provider, Urgent Care Attending Clinician Unavailable Payers Payer Name Policy Type Policy Number Effective Date Expiration Date S ource Problems Condition Condition Condition Status Onset Resolution Last Treating Co mments Source Name Details Category Date Date Treatment Clinician Date Vitamin D Vitamin D Disease Active Uni vers deficiency deficiency 05-13 it y of 00:00: [address] Has poorly Has poorly Disease Active U nivers balanced balanced 05-13 ity of diet diet 00:00: [address] [facility] Hospital Disease Active Unive rs discharge discharge 05-13 [place] of follow[place] [facility] Pap smear Pap smear Disease Active Uni vers for for 05-13 ity of cervical cervical 00:00: [place] cancer cancer 00 Medical screening screening Bran ch Purpura, Purpura, 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, openic, 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 00 Me dical Branch Other Other Disease Active Univers idiopathic idiopathic 5-12 it y of scoliosis, sc[place]osis, [place] cervicotho cervicotho 00 Me dical racic racic Branch region region Need for Need for Disease Active Unive rs hepatitis hepatitis 5-12 ity of C C 00:00: [place] screening screening 00 Medi cornelio test test Branch Vertigo Vertigo Disease Active 2020- Univers 2-05 ity of 00:00: [place] 00 Medical Branch Amenorrhea Amenorrhea Disease Active 2020-0 U nivers due to due to 2-05 ity of Depo Depo 00:00: [place] Provera Provera 00 Medical Branch Other Other Disease Active 2020- Univers fatigue fatigue 2-05 ity of 00:00: [place] 00 Medical Branch Dyspareuni Dyspareuni Disease Active 2020- U nivers a in a in 2-05 ity of female female 00:00: [place] 00 Medical Branch Urinary Urinary Disease Active 2020- Univers tract tract 2-05 [place] of infection infection [place] without 00 Medical hematuria, hematuria, Br anch site site unspecifie unspecifie d d Urticaria, Urticaria, Disease Active 2019- U nivers unspecifie unspecifie 2-05 it y of d d 00:00: [place] 00 Medical Branch Anxiety Anxiety Disease Active 2020- Univers 2-05 ity of 00:00: [place] 00 Medical Branch Depo-Prove Depo-Prove Disease Active 2019 Overview : Univers ra ra 9-24 Formattin ity of contracept contracept 00:00: g of this [place] lili status lili status 00 note Me dical might be Branch different from the original. See scanned records received depo on 02-12-19 Breakthrou Breakthrou Disease Active 2019- U nivers gh gh 8-16 ity of bleeding bleeding 00:00: [place] on depo on depo 00 Medical provera provera Branch Disease Active 2019-0 U nivers hemorrhage hemorrhage 4-18 it y of 00:00: [place] 00 Medical Branch Acute Acute Disease Active 2019- Univers blood loss blood loss 4-18 it y of anemia anemia 00:00: [place] 00 [facility] Branch Allergies, Adverse Reactions, Alerts Allergy Allergy Status Severity Reaction(s) Onset Inactive Treating Comm ents Source Name Type Date Date Clinician NO KNOWN Drug Active Univers ALLERGIE Class ity of S [facility] Social History Social Habit Start Date Stop Date Quantity Comments Source Exposure to Not sure [facility] SARS-CoV-2 (event) Medica l Branch Alcohol intake 2021-05-18 2021-05-18 [facility] 00:00:00 00:00:00 Medical Branch Tobacco use and 2014-07-29 2014-07-29 Never used [facility] exposure 00:00:00 00:00:00 Medical Branch Sex Assigned At 2000 2000 [facility] 00:00:00 00:00:00 Medical Branch Smoking Status Start Date Stop Date Source Never smoker [facility] Medical Branch Medications Ordered Filled Start Stop Current Ordering Indication Dosage Frequency Signature Comments Components Source Medication Medication Date Date Medication? Clinician (SIG) Name Name ergocalcife Yes [id number] Take 1 Univers rol, 9-09 capsule by ity of vitamin d2, 00:00: mouth [place] 1,250 mcg 00 weekly. Medical (50,000 Branch unit) capsule calcium Yes [id number] 500mg Take 1 Uni vers carbonate 9-09 tablet by ity o f (CALCIUM 00:00: mouth [place] 500) 500 mg 00 daily. Medica l calcium Branch (1,250 mg) tablet fluticasone Yes [id number] 1{spray Use 1 Univers propionate 9-09 } [facility] in ity o f 50 00:00: each [place] mcg/actuati 00 nostril Medic al on nasal daily. Branch spray ergocalcife Yes [id number] Take 1 Univers rol, 9-09 capsule by ity of vitamin d2, 00:00: mouth [place] 1,250 mcg 00 weekly. Medical (50,000 Branch unit) capsule calcium Yes [id number] 500mg Take 1 Uni vers carbonate 9-09 tablet by ity o f (CALCIUM 00:00: mouth [place] 500) 500 mg 00 daily. Medica l calcium Branch (1,250 mg) tablet fluticasone Yes [id number] 1{spray Use 1 Univers propionate 9-09 } [facility] in ity o f 50 00:00: each [place] mcg/actuati 00 nostril Medic al on nasal daily. Branch spray Vital Signs Vital Name Observation Time Observation Value Comments Source Systolic blood 2021-07-08 21:04:00 111 mm[Hg] Univer sity of pressure [facility] Diastolic blood 2021-07-08 21:04:00 75 mm[Hg] Unive rsity of pressure [facility] Heart rate 2021-07-08 21:04:00 78 /min [facility] Body temperature 2021-07-08 21:04:00 36.56 Hollie [facility] Respiratory rate 2021-07-08 21:04:00 18 /min [facility] Body height 2021-07-08 21:04:00 160 cm [facility] Body weight 2021-07-08 21:04:00 71.753 kg [facility] BMI 2021-07-08 21:04:00 28.02 kg/m2 [facility] Oxygen saturation in 2021-07-08 21:04:00 99 /min [facility] Arterial blood by [facility] Pulse oximetry [place] Procedures Procedure Date / Time Performed Performing Clinician Sourc e POCT GRP A STREP 2021-07-08 21:18:00 Rochelle Buenrostro [facility] Encounters Start End Encounter Admission Attending Care Care Encounter Source Date/Time Date/Time Type Type Clinicians Facility Department ID 2021-07-20 2021-07-[address] [facility] [id number] Univers 14:40:00 14:40:00 MARYBEL [id number] [facility] 2021-07-09 2021-07-09 Letter NABILA Rob [id number] Univers 00:00:00 00:00:00 (Out) Kiersten GARCIA [id number] it y of [facility] [id number] Asher as [phone] [address] 2021-07-08 2021-07-[address] [facility] [id number] Univers 16:00:00 16:38:08 SERVANDOVALERIE [facility] 2021-07-08 2021-07-08 Urgent Kristian [facility] [id number] Univers 15:57:42 16:38:08 Care [facility] [id number] it y of [place] [id number] Asher as DOUGLAS?BLEA [phone] Me dical [address] MEDICAL OFFICE BUILDING 2020-10-04 2020-10-04 Urgent Provider, [facility] [id number] 12:54:03 13:14:03 [facility] [id number] Care [place] [id number] Professio [phone] nal [address] 2020-08-14 2020-08-14 Urgent Provider, [facility] [id number] 12:45:43 13:33:16 Care [facility] Urgent Health [id number] Care [place] [id number] Professio [phone] nal [address] Results Test Description Test Time Test Comments Results Result Comments Source POCT GRP A STREP (MOLECULAR) 2021-07-08 21:18:00 Test Item Value Reference Range Interpretation Comme nts POCT GP A STREP (test code = 11958-8) Negative Negative - Negat lili Lab Interpretation (test code = 85872-6) Normal [facility]
== END 2021-07-12 16:53 | disposition home or self-care (01) ==
LOC: ER 14:48
DX: J06.9 Acute upper respiratory infection, unspecified (principal); Z88.8 Allergy status to other drugs, medicaments and biological substances; Z91.048 Other nonmedicinal substance allergy status
CPT/HCPCS: 0240U; 99281

== ENCOUNTER 2022-02-02 23:03 | Emergency (ER) | payer OTHER ==
--- OUTSIDE RECORDS SUMMARY | 2022-02-02 23:45 | XMS REPORT | Continuity of Care Document ---
:2000 Author Organization [facility] t Address [address] [place] [address] [address] [place] [address] Care Team Providers Name Role Phone Concepcion PORTILLO Primary Care Physician Concepcion PORTILLO Attending Clinician 2, Lab Attending Clinician Unavailable Provider, Urgent Care Attending Clinician Unavailable Payers Payer Name Policy Type Policy Number Effective Date Expiration Date S ource Problems Condition Condition Condition Status Onset Resolution Last Treating Co mments Source Name Details Category Date Date Treatment Clinician Date Generalize Generalize Disease Active U nivers d anxiety d anxiety 4-27 ity of disorder disorder 00:00: [place] [facility] 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 4-27 it y of 00:: [place] [facility] Vitamin D Vitamin D Disease Active Uni vers deficiency deficiency 05-13 it y of 00:00: [address] Has poorly Has poorly Disease Active U nivers balanced balanced 05-13 ity of diet diet 00:00: [place] 00 [facility] Hospital Disease Active Unive rs discharge discharge 05-13 ity of follow-up [place]up 00:[place] [facility] Pap smear Pap smear Disease Active Uni vers for for 05-13 ity of cervical cervical 00:00: [place] cancer cancer 00 Medical screening screening Bran [...] hepatitis 5-12 ity of C C 00:00: [place] screening screening 00 Medi cornelio test test Branch Vertigo Vertigo Disease Active 2020- Univers 2-05 ity of 00:00: [place] [facility] Amenorrhea Amenorrhea Disease Active 2020-0 U nivers due to due to 2-05 ity of Depo Depo 00:00: [place] Provera Provera 00 Medical Branch Dyspareuni Dyspareuni Disease Active 2020-0 U nivers a in a in 2-05 ity of female female 00:00: [place] 00 Medical Branch Urinary Urinary Disease Active 2020-0 Univers tract tract 2-05 ity of infection infection 00:[place] without 00 Medical hematuria, hematuria, Br anch site site unspecifie unspecifie d d Urticaria, Urticaria, Disease Active 2020-0 U nivers unspecifie unspecifie 2-05 it y of d d 00:00: [place] 00 Medical Branch Anxiety Anxiety Disease Active 2020- Univers 2-05 ity of 00:00: [place] 00 Medical Branch Chronic Chronic Disease Active 2020-0 Univers fatigue fatigue 2-05 ity of syndrome syndrome 00:00: [place] 00 Medical Branch Depo-Prove Depo-Prove Disease Active 2019 Overview : Univers ra ra 9-24 Formattin ity of contracept contracept 00:00: g of this [place] lili status lili status 00 note Me dical might be Branch different from the original. See scanned records received depo on 02-12-19 Breakthrou Breakthrou Disease Active 2019-0 U nivers gh gh 8-16 ity of bleeding bleeding 00:00: [place] on depo on depo 00 Medical provera provera Branch Disease Active 2019-0 U nivers hemorrhage hemorrhage 4-18 it y of 00:00: [place] 00 Medical Branch Acute Acute Disease Active 2019-0 Univers blood loss blood loss 4-18 it y of anemia anemia 00:00: [place] 00 Medical Branch Allergies, Adverse Reactions, Alerts This patient has no known allergies or adverse reactions. Social History Social Habit Start Date Stop Date Quantity Comments Source Exposure to 2021-12-19 2021-12-29 Not sure [facility] SARS-CoV-2 00:00:00 13:20:00 [place] [facility] (event) Branch Alcohol intake 2021-12-29 2021-12-29 Lifetime University of 00:00:00 00:00:00 non-drinker [facility] (finding) Branch Tobacco use and 2014-07-29 2014-07-29 Never used Universit y of exposure 00:00:00 00:00:00 [facility] Sex Assigned At 2000 2000 Universit y of 00:00:00 00:00:00 [facility] Smoking Status Start Date Stop Date Source Never smoker [facility] Medications Ordered Filled Start Stop Current Ordering Indication Dosage Frequency Signature Comments Components Source Medication Medication Date Date Medication? Clinician (SIG) Name Name calcium Yes [id number] 500mg Take 1 Uni vers carbonate 4-27 tablet by ity o f (CALCIUM 00:00: mouth [place] 500) 500 mg 00 daily. Medica l calcium Branch (1,250 mg) tablet ergocalcife Yes [id number] Take 1 Univers rol, 4-27 capsule by ity of vitamin d2, 00:00: mouth [place] 1,250 mcg 00 weekly. Medical (50,000 Branch unit) capsule calcium 2021- Yes [id number] 500mg Take 1 Uni vers carbonate 4-27 tablet by ity o f (CALCIUM 00:00: mouth [place] 500) 500 mg 00 daily. Medica l calcium Branch (1,250 mg) tablet ergocalcife Yes [id number] Take 1 Univers rol, 4-27 capsule by ity of vitamin d2, 00:00: mouth [place] 1,250 mcg 00 weekly. Medical (50,000 Branch unit) capsule calcium 2021- Yes [id number] 500mg Take 1 Uni vers carbonate 4-27 tablet by ity o f (CALCIUM 00:00: mouth [place] 500) 500 mg 00 daily. Medica l calcium Branch (1,250 mg) tablet ergocalcife 2021-0 Yes [id number] Take 1 Univers rol, 4-27 capsule by ity of vitamin d2, 00:00: mouth [place] 1,250 mcg 00 weekly. Medical (50,000 Branch unit) capsule fluticasone Yes [id number] 2{spray Use 2 Univers propionate 1-06 } Sprays in ity of 50 00:00: each [place] mcg/actuati 00 nostril Medic al on nasal daily. Branch spray fluticasone Yes [id number] 2{spray Use 2 Univers propionate 1-06 } Sprays in ity of 50 00:00: each [place] mcg/actuati 00 nostril Medic al on nasal daily. Branch spray fluticasone Yes [id number] 2{spray Use 2 Univers propionate 1-06 } Sprays in ity of 50 00:00: each [place] mcg/actuati 00 nostril Medic al on nasal daily. Branch spray fluticasone Yes [id number] 1{spray Use 1 Univers propionate 9-09 } [place] in ity o f 50 00:00: each [place] mcg/actuati 00 nostril Medic al on nasal daily. Branch spray fluticasone Yes [id number] 1{spray Use 1 Univers propionate 9-09 } [place] in ity o f 50 00:00: each [place] mcg/actuati 00 nostril Medic al on nasal daily. Branch spray fluticasone Yes [id number] 1{spray Use 1 Univers propionate 9-09 } [place] in ity o f 50 00:00: each [place] mcg/actuati 00 nostril Medic al on nasal daily. Branch spray ergocalcife 2021- No [id number] Take 1 Univers rol, 05-13 capsule by ity of vitamin d2, 00:00: 00:[place] 1,250 mcg 00 :00 weekly. Medical (50,000 Branch unit) capsule calcium 2021- No [id number] 500mg Take 1 Un cristian carbonate 05-13 tablet by ity of (CALCIUM 00:00: 00:00 mouth [place] 500) 500 mg 00 :00 daily. Medica l calcium Branch (1,250 mg) tablet Immunizations Ordered Filled Immunization Date Status Comments [facility] e Immunization Name Name SARS-COV-2 COVID-19 2021-04-29 [facility]00 [facility] ical Branch SARS-COV-2 COVID-19 2021-04-29 Completed Unive rsity of MODERNA VACCINE 00:00:00 [facility] ical Branch SARS-COV-2 COVID-19 2021-04-29 Completed Unive rsity of MODERNA VACCINE 00:00:00 [facility] ical Branch SARS-COV-2 COVID-19 2021-03-06 Completed Unive rsity of MODERNA VACCINE 00:00:00 [facility] ical Branch SARS-COV-2 COVID-19 2021-03-06 Completed Unive rsity of MODERNA VACCINE 00:00:00 [facility] ical Branch SARS-COV-2 COVID-19 2021-03-06 Completed Unive rsity of MODERNA VACCINE 00:00:00 [facility] Vital Signs Vital Name Observation Time Observation Value Comments Source Systolic blood 2021-12-29 18:15:00 115 mm[Hg] Univer sity of pressure [facility] Diastolic blood 2021-12-29 18:15:00 67 mm[Hg] Unive rsity of pressure [facility] Heart rate 2021-12-29 18:15:00 72 /min [facility] Body temperature 2021-12-29 18:15:00 36.83 Hollie [facility] Respiratory rate 2021-12-29 18:15:00 18 /min [facility] Body height 2021-12-29 18:15:00 160 cm [facility] Body weight 2021-12-29 18:15:00 72.122 kg [facility] BMI 2021-12-29 18:15:00 28.17 kg/m2 [facility] Oxygen saturation in 2021-12-29 18:15:00 98 /min [facility] Arterial blood by [facility] [place] Pulse oximetry Branch Procedures This patient has no known procedures. Encounters Start End Encounter Admission Attending Care Care Encounter Source Date/Time Date/Time Type Type Clinicians Facility Department ID 2022-01-27 2022-01-27 Telephone Concepcion [facility] [id number] [facility] 00:00:00 00:00:00 [place] [id number] [place] [id number] [place] [phone] N[place] dical NAL 044 [facility] 2021-12-29 2021-12-29 Annual Giving Manager 2, Adc Lab [facility] [id number] [facility] 14:00:00 14:15:00 Visit Concepcion [place] LESLI [id number] ity of [facility] [id number] [place] PROF[place] [phone] N[place] dical NAL 353 [facility] 2021-12-29 2021-12-29 Office Concepcion [facility] [id number] [facility] 13:00:00 13:48:52 Visit [place] BALLESTEROS [id number] i ty of [facility] [id number] [place] PROFESS[place] [phone] N[place] dical NAL 044 [facility] 2020-10-04 2020-10-04 Urgent Provider, [facility] [id number] 12:54:03 13:14:03 [facility] [id number] Care [place] [id number] Professio [phone] nal [facility] [address] 2020-08-14 2020-08-14 Urgent Provider, [facility] [id number] 12:45:43 13:33:16 [facility] [id number] Care [place] [id number] Professio [phone] [place] [address] [address] Results This patient has no known results.
[2022-02-03 00:07] LABS: Absolute Lymphocytes (CBC) 2.3 K/uL (0.7-4.9); Hematocrit 42.4 % (36.0-45.0); Lymphocytes % 25.8 % (15.3-44.8); MPV 10.4 fL (7.6-11.3); RBC Red Blood Cell Count 4.93 M/uL (3.86-4.86)
[2022-02-03 00:15] LABS: Bilirubin Total 0.3 mg/dL (0.2-1.0); Potassium 3.6 mmol/L (3.5-5.1); Protein, Total 8.2 g/dL (6.4-8.2)
[2022-02-03] MEDS ORDERED: MORPHINE 4 MG/ML SYR ONE (00:27)
[2022-02-03] MEDS ORDERED: ONDANSETRON 4 MG/2 ML VIAL ONE (00:27)
[2022-02-03] MEDS ORDERED: NA CHLORIDE 0.9% 1,000 ML ONE (00:27)
[2022-02-03 01:20] LABS: Urine Blood Negative (Negative); Urine Glucose Negative (Negative); Urine Protein Negative (Negative); Urine Specific Gravity 1.015 (1.005-1.030)
[2022-02-03 03:18] LABS: Urine Bacteria <20 /HPF (<20); Urine RBC NONE SEEN /HPF (NONE SEEN)
--- NOTE | 2022-02-03 04:14 | EDPHYS ---
Physician Documentation [facility] Name: Maria A Veloz Age: 21 yrs Sex: Female : 2000 Arrival Date: 02/02/2022 Time: 23:05 Bed 5 Private MD: ED Physician Crescencio Monge HPI: 02/03 00:05 This 21 yrs old Female presents to ER via Ambulatory with complaints of mh7 Abdominal Pain. 00:05 The patient presents with abdominal pain right lower quadrant. Onset: The mh7 symptoms/episode began/occurred 4 day(s) ago. 00:05 The symptoms do not radiate. mh7 00:05 Associated signs and symptoms: Pertinent negatives: nausea, vomiting, and diarrhea, mh7 anorexia, blood in stools, chest pain, constipation, diarrhea, dysuria, fever, headache, hematuria, palpitations, shortness of breath, vaginal discharge, vomiting, vomiting blood. The symptoms are described as intermittent, vague, waxing/waning. Modifying factors: The symptoms are alleviated by nothing, the symptoms are aggravated by movement, touching the area. Severity of pain: At its worst the pain was moderate 3 day(s) ago, in the emergency department the pain has improved mildly. DIRECTOR OF QUALITY: 02/02 23:29 LMP 01/09/2022 ld1 Historical: - Allergies: 23:29 Tape; ld1 23:29 tb test; ld1 - PMHx: 23:29 Anemia; Asthma; complications from child ; ld1 - PSHx: 23:29 None; ld1 - Immunization history:: Adult Immunizations up to date, Client reports receiving the 2nd dose of the Covid vaccine. - Social history:: Smoking status: Patient denies any tobacco usage or history of. Patient/guardian denies using alcohol. ROS: 02/03 00:05 Constitutional: Negative for fever, chills, and weight loss, Eyes: Negative for injury, mh7 pain, redness, and discharge, ENT: Negative for injury, pain, and discharge, Neck: Negative for injury, pain, and swelling, Cardiovascular: Negative for chest pain, palpitations, and edema, Respiratory: Negative for shortness of breath, cough, wheezing, and pleuritic chest pain, Back: Negative for injury and pain, : Negative for injury, bleeding, discharge, and swelling, MS/Extremity: Negative for injury and deformity, Skin: Negative for injury, rash, and discoloration, Neuro: Negative for headache, weakness, numbness, tingling, and seizure, Psych: Negative for depression, anxiety, suicide ideation, homicidal ideation, and hallucinations, Allergy/Immunology: Negative for hives, rash, and allergies, Endocrine: Negative for neck swelling, polydipsia, polyuria, polyphagia, and marked weight changes, Hematologic/Lymphatic: Negative for swollen nodes, abnormal bleeding, and unusual bruising. Exam: 00:05 Head/Face: Normocephalic, atraumatic. Eyes: Pupils equal round and reactive to light, mh7 extra-ocular motions intact. Lids and lashes normal. Conjunctiva and sclera are non-icteric and not injected. Cornea within normal limits. Periorbital areas with no swelling, redness, or edema. Neck: Trachea midline, no thyromegaly or masses palpated, and no cervical lymphadenopathy. Supple, full range of motion without nuchal rigidity, or vertebral point tenderness. No Meningismus. Chest/axilla: Normal chest wall appearance and motion. Nontender with no deformity. No lesions are appreciated. Cardiovascular: Regular rate and rhythm with a normal S1 and S2. No gallops, murmurs, or rubs. Normal PMI, no JVD. No pulse deficits. Respiratory: Lungs have equal breath sounds bilaterally, clear to auscultation and percussion. No rales, rhonchi or wheezes noted. No increased work of breathing, no retractions or nasal flaring. 00:05 Back: No spinal tenderness. No costovertebral tenderness. Full range of motion. Skin: Warm, dry with normal turgor. Normal color with no rashes, no lesions, and no evidence of cellulitis. MS/ Extremity: Pulses equal, no cyanosis. Neurovascular intact. Full, normal range of motion. Neuro: Awake and alert, GCS 15, oriented to person, place, time, and situation. Cranial nerves II-XII grossly intact. Motor strength 5/5 in all extremities. Sensory grossly intact. Cerebellar exam normal. Normal gait. Psych: Awake, alert, with orientation to person, place and time. Behavior, mood, and affect are within normal limits. 00:05 Constitutional: The patient appears in no acute distress, alert, awake, uncomfortable. 00:05 Abdomen/GI: Inspection: abdomen appears normal, Bowel sounds: normal, in all quadrants, Palpation: moderate abdominal tenderness, in the right lower quadrant, mass, is not appreciated, rebound tenderness, is not appreciated, voluntary guarding, is not appreciated, involuntary guarding, is not appreciated, no appreciated organomegaly, Indicators: McBurney's point is not tender, Sigala's sign is negative, Rovsing's sign is negative, Obturator sign is negative, Psoas sign is negative, Liver: no appreciated palpable abnormalities, Hernia: not appreciated. Vital Signs: 02/02 23:28 BP 148 / 88; Pulse 82; Resp 18; Temp 98.2(O); Pulse Ox 100% on R/A; Weight 70.76 kg; ld1 Height 5 ft. 3 in. (160.02 cm); Pain 3/10; 23:57 BP 100 / 75; Pulse 81; Resp 17; Pulse Ox 98% on R/A; kd3 02/03 01:16 BP 107 / 69; Pulse 75; Resp 17; Pulse Ox 100% on R/A; kd3 01:58 BP 104 / 65; Pulse 71; Resp 17; Pulse Ox 100% on R/A; kd3 04:27 BP 116 / 73; Pulse 65; Resp 18; Pulse Ox 100% on R/A; kd3 02/02 23:28 Body Mass Index 27.63 (70.76 kg, 160.02 cm) ld1 MDM: 04:11 Differential diagnosis: appendicitis, bowel obstruction, Ectopic , mh7 Endometriosis, non-specific abd pain, Ovarian Torsion, Tubal Ovarian Abcess, Ureterolithiasis, urinary tract infection. Data reviewed: vital signs, nurses notes, lab test result(s), CBC, electrolytes, urinalysis, UPT: negative radiologic studies, CT scan, ultrasound. Data interpreted: Pulse oximetry: on room air is 100 %. Interpretation: normal. Counseling: I had a detailed discussion with the patient and/or guardian regarding: the historical points, exam findings, and any diagnostic results supporting the discharge/admit diagnosis, lab results, radiology results, the need for outpatient follow up, an OB/Gyne specialist, to return to the emergency department if symptoms worsen or persist or if there are any questions or concerns that arise at home. Response to treatment: the patient's symptoms have resolved after treatment, the patient's blood pressure is in an acceptable range, mental status has returned to baseline, the patient no longer shows bradycardia, the patient is not short of breath, the patient is not tachycardic, the patient's pain is gone, the patient's temperature has normalized, the patient is now symptom free, patient is well hydrated. 04:14 Patient medically screened. [facility] 02/02 23:33 Order name: CBC with Diff; Complete Time: 00:13 ld1 02/02 23:33 Order name: CMP; Complete Time: 00:35 ld02/02 23:33 Order name: Lipase; Complete Time: 00:35 ld 02/03 00:15 Order name: CT Abd/Pelvis - IV Contrast Only [facility] 02/03 01:20 Order name: Urine Dipstick-Ancillary; Complete Time: 01:41 EDWA 02/03 02:14 Order name: Urine Microscopic Only; Complete Time: 03:39 [facility] 02/02 23:33 Order name: IV Saline Lock; Complete Time: 23:36 [facility] 02/02 23:33 Order name: Labs collected and sent; Complete Time: 23:36 02/02 23:33 Order name: Urine Dipstick-Ancillary (obtain specimen); Complete Time: 01:19 ld02/03 02:13 Order name: US Transvaginal Study (Probe) [facility] 02/02 23:33 Order name: Urine Test (obtain specimen); Complete Time: 01:19 ld1 Administered Medications: 00:28 Drug: NS 0.9% 1000 ml Route: IV; Rate: 1000 ml; Site: right antecubital; kd3 02:01 Follow up: Response: No adverse reaction; IV Status: Completed infusion kd3 00:28 Drug: morphine 2 mg Route: IVP; Infused Over: 4 mins; Site: right antecubital; kd3 02:01 Follow up: Response: No adverse reaction; Pain is decreased kd3 00:28 Drug: Zofran (Ondansetron) 4 mg Route: IVP; Site: right antecubital; kd3 02:01 Follow up: Response: No adverse reaction kd3 04:27 Drug: KeFLEX (cephalexin) 500 mg Route: PO; kd3 04:28 Follow up: Response: No adverse reaction kd3 Disposition Summary: 02/03/22 04:14 Discharge Ordered Location: Home [facility] Problem: new [facility] Symptoms: have improved [facility] Condition: Stable [facility] Diagnosis - Other ovarian cysts [facility] - UTI/ Urinary tract infection, site not specified [facility] Followup: [facility] - With: Private Physician - When: 1 - 2 days - Reason: Worsening of condition, Recheck today's complaints, Continuance of care, Re-evaluation by your physician Followup: [facility] - With: Alissa Trimble MD - When: 1 - 2 days - Reason: Worsening of condition, Recheck today's complaints, Continuance of care, Re-evaluation by your physician Discharge Instructions: - Discharge Summary Sheet [facility] - Urinary Tract Infection, Adult, [id number] [facility] - Ovarian Cyst, [id number] [facility] Forms: - Medication Reconciliation Form [facility] - Thank You Letter [facility] - Antibiotic Education [facility] - Prescription Opioid Use [facility] Prescriptions: - Cephalexin 500 mg Oral Capsule - take 1 capsule by ORAL route every 12 hours for 7 days; 14 capsule; Refills: 0, [facility] Product Selection Permitted - Ibuprofen 800 mg Oral Tablet - take 1 tablet by ORAL route every 8 hours As needed take with food; 15 tablet; [facility] Refills: 0, Product Selection Permitted - Tylenol-Codeine #3 300 mg-30 mg Oral - take 2 tablet by ORAL route every 6 hours As needed; 15 tablet; Refills: 0, [facility] Product Selection Permitted Signatures: Dispatcher [employer] Crescencio Jenkins MD MD 7 Melina Araujo RN RN ld1 Amada Lundberg RN RN kd3
--- NOTE | 2022-02-03 04:14 | ER ---
Nurse's Notes [facility] Name: Maria A Veloz Age: 21 yrs Sex: Female : 2000 Arrival Date: 02/02/2022 Time: 23:05 Bed 5 Private MD: Diagnosis: Other ovarian cysts;UTI/ Urinary tract infection, site not specified Presentation: 02/02 23:28 Chief complaint: Patient states: RLQ pain x 4 days. Today is has gotten much worse. ld1 Coronavirus screen: At this time, the client does not indicate any symptoms associated with coronavirus-19. Ebola Screen: No symptoms or risks identified at this time. Initial Sepsis Screen: Does the patient meet any 2 criteria? No. Patient's initial sepsis screen is negative. Does the patient have a suspected source of infection? No. Patient's initial sepsis screen is negative. Risk Assessment: Do you want to hurt yourself or someone else? Patient reports no desire to harm self or others. Onset of symptoms was February 02, 2022. 23:28 Method Of Arrival: Ambulatory ld1 23:28 Acuity: SARAH 3 ld1 Triage Assessment: 23:29 General: Appears in no apparent distress. comfortable, Behavior is calm, cooperative, ld1 appropriate for age. Pain: Complains of pain in right lower quadrant Pain does not radiate. Pain currently is 3 out of 10 on a pain scale. at worst was 10 out of 10 on a pain scale. EENT: No signs and/or symptoms were reported regarding the EENT system. Neuro: Level of Consciousness is awake, alert, obeys commands, Oriented to person, place, time, situation. Cardiovascular: Capillary refill < 3 seconds Patient's skin is warm and dry. Respiratory: Airway is patent Respiratory effort is even, unlabored, Respiratory pattern is regular, symmetrical. GI: Abdomen is flat, non-distended, Reports lower abdominal pain. :. LOCK TENDER: 23:29 LMP 01/09/2022 ld1 Historical: - Allergies: 23:29 Tape; ld1 23:29 tb test; ld1 - PMHx: 23:29 Anemia; Asthma; complications from child ; ld1 - PSHx: 23:29 None; ld1 - Immunization history:: Adult Immunizations up to date, Client reports receiving the 2nd dose of the Covid vaccine. - Social history:: Smoking status: Patient denies any tobacco usage or history of. Patient/guardian denies using alcohol. Screenin:53 Abuse screen: Denies threats or abuse. Denies injuries from another. Abuse screen: kd3 Denies threats or abuse. Nutritional screening: No deficits noted. Tuberculosis screening: No symptoms or risk factors identified. Fall Risk IV access (20 points). Assessment: 23:53 General: Appears in no apparent distress. Behavior is calm, cooperative. Pain: kd3 Complains of pain in abdomen and right lower quadrant. Neuro: Level of Consciousness is awake, alert, obeys commands, Oriented to person, place, time, situation. Cardiovascular: Patient's skin is warm and dry. Respiratory: Airway is patent Trachea midline Respiratory effort is even, unlabored, Respiratory pattern is regular, symmetrical. GI: Bowel sounds present X 4 quads. Abd is soft X 4 quads No rebound tenderness in the right lower quadrant. 02/03 04:27 Reassessment: Patient and/or family updated on plan of care and expected duration. Pain kd3 level reassessed. Patient is alert, oriented x 3, equal unlabored respirations, skin warm/dry/pink. Patient states feeling better. Patient states symptoms have improved. Vital Signs: 02/02 23:28 BP 148 / 88; Pulse 82; Resp 18; Temp 98.2(O); Pulse Ox 100% on R/A; Weight 70.76 kg; ld1 Height 5 ft. 3 in. (160.02 cm); Pain 3/10; 23:57 BP 100 / 75; Pulse 81; Resp 17; Pulse Ox 98% on R/A; kd3 02/03 01:16 BP 107 / 69; Pulse 75; Resp 17; Pulse Ox 100% on R/A; kd3 01:58 BP 104 / 65; Pulse 71; Resp 17; Pulse Ox 100% on R/A; kd3 04:27 BP 116 / 73; Pulse 65; Resp 18; Pulse Ox 100% on R/A; kd3 02/02 23:28 Body Mass Index 27.63 (70.76 kg, 160.02 cm) ld1 ED Course: 02/02 23:05 Patient arrived in ED. ag3 23:24 Dinesh Freitas, COURTNEY is Primary Nurse. as6 23:29 Triage completed. ld1 23:29 Arm band placed on right wrist. ld1 23:49 Crescencio Monge MD is Attending Physician. mh7 23:52 Inserted saline lock: 20 gauge in right antecubital area, using aseptic technique. kd3 Blood collected. 23:53 Patient has correct armband on for positive identification. kd3 23:53 No provider procedures requiring assistance completed. kd3 0602 01:37 CT Abd/Pelvis - IV Contrast Only In Process Unspecified. EDMS 02:53 US Transvaginal Study (Probe) In Process Unspecified. EDMS 04:13 Alissa Trimble MD is Referral Physician. 7 04:28 intact, bleeding controlled, No redness/swelling at site. Pressure dressing applied. kd3 Administered Medications: 00:28 Drug: NS 0.9% 1000 ml Route: IV; Rate: 1000 ml; Site: right antecubital; kd3 02:01 Follow up: Response: No adverse reaction; IV Status: Completed infusion kd3 00:28 Drug: morphine 2 mg Route: IVP; Infused Over: 4 mins; Site: right antecubital; kd3 02:01 Follow up: Response: No adverse reaction; Pain is decreased kd3 00:28 Drug: Zofran (Ondansetron) 4 mg Route: IVP; Site: right antecubital; kd3 02:01 Follow up: Response: No adverse reaction kd3 04:27 Drug: KeFLEX (cephalexin) 500 mg Route: PO; kd3 04:28 Follow up: Response: No adverse reaction kd3 Medication: 02/02 23:53 VIS not applicable for this client. kd3 Outcome: 02/03 04:14 Discharge ordered by . 7 04:27 Discharged to home ambulatory. kd3 04:27 Condition: stable 04:27 Discharge instructions given to patient, Instructed on discharge instructions, follow up and referral plans. medication usage, Demonstrated understanding of instructions, follow-up care, medications, Prescriptions given X 3. 04:31 Patient left the ED. kd3 Signatures: Dispatcher [employer] [facility] Maryana Maravilla 3 Crescencio Monge MD MD 7 Melina Araujo RN RN ld1 Dinesh Freitas RN RN as6 Tamika, Amada, RN RN kd3
[2022-02-03] MEDS ORDERED: CEPHALEXIN 250 MG CAP ONE (04:21)
[2022-02-03 04:38] VITALS: TEMP 98.2
[2022-02-03 04:42] VITALS: O2SAT 100
[2022-02-03 04:45] VITALS: BP 116/73
--- NOTE | 2022-02-03 12:50 | RAD REPORT ---
EXAM DESCRIPTION: US - Transvaginal Study Probe - 02/03/2022 3:29 am CLINICAL HISTORY: Right ovarian cyst TECHNIQUE: Real-time transvaginal pelvic ultrasound with image documentation. Transvaginal imaging was used for better evaluation of the endometrium and adnexa. COMPARISON: Abdomen pelvis CT dated 02/03/2022 FINDINGS: Uterus/cervix: The uterus is anteverted and measures 7.7 x 3.7 x 4 cm. The endometrial stripe measures 10 mm in thickness. No myometrial mass. Right ovary: The right ovary measures 5.1 x 4.2 x 4.1 cm. There is a 2.9 x 3 x 2.6 cm hemorrhagic c yst. No demonstrable vascularity on color Doppler interrogation. Normal ovarian blood flow. Left ovary: The left ovary is not visualized. Free fluid: Small amount of free fluid within the cul-de-sac. Bladder: Empty bladder which cannot be evaluated with this probe. IMPRESSION: 3 cm right ovarian hemorrhagic cyst. No follow-up imaging is recommended. Reference: Rad iology 2009;256(3):943-62 Electronically signed by: Pedrito Stuart MD 02/03/2022 3:21 AM CDT Due to temporary technical issues with the PACS/Fluency reporting system, reports are being signed by the in house radiologist without review as a courtesy to ensure prompt reporting. The interpreting r adiologist is fully responsible for the content of the report.
--- NOTE | 2022-02-03 12:51 | RAD REPORT ---
EXAM DESCRIPTION: CT - Abdomen Pelvis W Contrast - 02/03/2022 6:39 am CLINICAL HISTORY: 21 years Female RLQ abdominal pain COMPARISON: Prior study dated October 10, 2019 TECHNIQUE: Images were obtained in axial, sagittal, and coronal planes. Intravenous contrast was adm inistered. This exam was performed according to our departmental dose-optimization program which includes use of Automated Exposure Control, adjustment of the mA and/or kV according to patient size and/or use o f iterative reconstruction technique. FINDINGS: No abnormality involving the liver, pancreas, gallbladder, or adrenal glands bilaterally. Spleen is enlarged measuring 13.4 cm in dimension. No obstructing renal or ureteral calculi bilaterally. No hydronephrosis bilaterally. Mucosal thickeni ng versus incomplete distention involving the bladder. Appendix within normal limits. No bowel obstruction, perforation, or inflammation. Complete distentio n left colon. Enlarged right ovary measuring 5.3 x 3.6 cm. Complex cystic lesion is seen involving the right ovary measuring 3.6 x 4 cm. Increased attenuation is identified within the right ovarian cyst possibly bloo d products. Mild pelvic fluid. Deviation uterus to the left. No dilatation of abdominal aorta. Unremarkable portal vein. No adenopathy. Dependent atelectatic change lower lungs bilaterally. No acute osseous abnormality. IMPRESSION: Enlarged right ovary with 4 cm complex cystic lesion possibly hemorrhagic cyst. Mild pel igor fluid. Correlation with pelvic ultrasound suggested for further characterization. Ovarian torsion should be excluded. Appendix within normal limits. Cystitis versus incomplete bladder distention. Enlarged spleen. Electronically signed by: Diana Pineda MD 02/03/2022 2:02 AM CDT Due to temporary technical issues with the PACS/Fluency reporting system, reports are being signed by the in house radiologist without review as a courtesy to ensure prompt reporting. The interpreting r adiologist is fully responsible for the content of the report.
== END 2022-02-03 04:31 | disposition home or self-care (01) ==
LOC: ER 23:03
DX: N39.0 Urinary tract infection, site not specified (principal); N83.299 Other ovarian cyst, unspecified side; Z91.048 Other nonmedicinal substance allergy status
CPT/HCPCS: 96361; 85025; 36415; 83690; 80053; 74177; 76830; 96375; 96374; 99284; Q9967; J7030; J2405; 81003; 81015

== ENCOUNTER 2022-04-12 05:42 | Emergency (ER) | payer OTHER ==
--- OUTSIDE RECORDS SUMMARY | 2022-04-12 05:46 | XMS REPORT | Continuity of Care Document ---
:2000 Author Organization [facility] t Address [address] [place] [address] Dr. [address] [place] [address] Care Team Providers Name Role Phone Delta Javier MD Primary Care Physician Rochelle Bowen Attending Clinician ROCHELLE LINDQUIST Attending Clinician Unavailable Varsha VALDEZ, Skyla Attending Clinician Unavailable Delta Javier MD Attending Clinician 2, [facility] Attending Clinician Unavailable Provider, [facility] Attending Clinician Unavailable Payers Payer Name Policy Type Policy Number Effective Date Expiration Date S ource Problems Condition Condition Condition Status Onset Resolution Last Treating Co mments Source Name Details Category Date Date Treatment Clinician Date Generalize Generalize Disease Active U nivers d anxiety d anxiety 4-27 ity of disorder disorder 00:00: [place] [facility] 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 gabby depression depression 4-27 it y of 00:00: [facility] Vitamin D Vitamin D Disease Active Uni vers deficiency deficiency 05-13 it y of 00:: [facility] Has poorly Has poorly Disease Active U nivers balanced balanced 05-13 ity of diet diet 00:00: [address] [facility] Disease Active Unive rs discharge discharge 05-13 ity of follow-up follow-up 00:00: [facility] Pap smear Pap smear Disease Active Uni vers for for 05-13 ity of cervical cervical 00:00: [place] cancer cancer 00 Medical screening screening Bran [...] hepatitis 5-12 ity of C C 00:00: [place] screening screening 00 Medi cornelio test test Branch Vertigo Vertigo Disease Active 2020- Univers 2-05 ity of 00:00: [place] 00 Medical Branch Amenorrhea Amenorrhea Disease Active 2020-0 U nivers due to due to 2-05 ity of Depo Depo 00:00: [place] Provera Provera 00 Medical Branch Dyspareuni Dyspareuni Disease Active 2020- U nivers a in a in 2-05 ity of female female 00:00: [place] 00 Medical Branch Urinary Urinary Disease Active 2020- Univers tract tract 2-05 [place] of infection [place] without 00 [place] hematuria, hematuria, Br anch site site unspecifie unspecifie d d Urticaria, Urticaria, Disease Active 2020-0 U nivers unspecifie unspecifie 2-05 it y of d d 00:00: [place] 00 Medical Branch Anxiety Anxiety Disease Active 2020- Univers 2-05 ity of 00:00: [place] 00 Medical Branch Chronic Chronic Disease Active 2020-0 Univers fatigue fatigue 2-05 ity of syndrome syndrome 00:00: [place] 00 Medical Branch Depo-Prove Depo-Prove Disease Active 2019 Overview : Univers ra ra 9-24 Formattin ity of contracept contracept 00:00: g of this [place] lili status lili status 00 note Me dical might be Branch different from the original. See scanned records received depo on 02-12-19 Breakthrou Breakthrou Disease Active 2019-0 U nivers gh gh 8-16 ity of bleeding bleeding 00:00: [place] on depo on depo 00 Medical provera provera Branch Disease Active 2019-0 U nivers hemorrhage hemorrhage 4-18 it y of 00:00: [place] 00 Medical Branch Acute Acute Disease Active 2019-0 Univers blood loss blood loss 4-18 it y of anemia anemia 00:00: [address] Branch Allergies, Adverse Reactions, Alerts Allergy Allergy Status Severity Reaction(s) Onset Inactive Treating Comm ents Source Name Type Date Date Clinician NO KNOWN Drug Active [facility] ALLERGIE Class ity of S [facility] Social History Social Habit Start Date Stop Date Quantity Comments Source Exposure to 2022-02-03 2022-02-13 Not sure [facility] SARS-CoV-2 00:00:00 14:07:00 [facility] [place] (event) [place] Alcohol intake 2022-02-13 2022-02-13 [facility] University of 00:00:00 00:00:00 non-drinker [facility] [place] (finding) [place] Tobacco use and 2014-07-29 2014-07-29 Never used Universit y of exposure 00:00:00 00:00:00 [facility] Sex Assigned At [birth year] Universit y of 00:00:00 00:00:00 [facility] Smoking Status Start Date Stop Date Source Never smoker [facility] Medications Ordered Filled Start Stop Current Ordering Indication Dosage Frequency Signature Comments Components Source Medication Medication Date Date Medication? Clinician (SIG) Name Name methylPREDN Yes [id number] Take by Univers ISolone 6-12 mouth ity of (MEDROL, 00:00: SEE-INSTRU Asher as SELVIN,) 4 mg 00 CTIONS. Medica l tablets follow Branch package directions calcium Yes [id number] 500mg Take 1 Uni vers carbonate 4-27 tablet by ity o f (CALCIUM 00:00: mouth [place] 500) 500 mg 00 daily. Medica l calcium Branch (1,250 mg) tablet ergocalcife Yes [id number] Take 1 Univers rol, 4-27 capsule by ity of vitamin d2, 00:00: mouth [place] 1,250 mcg 00 weekly. Medical (50,000 Branch unit) capsule calcium Yes [id number] 500mg Take 1 Uni vers carbonate 4-27 tablet by ity o f (CALCIUM 00:00: mouth [place] 500) 500 mg 00 daily. Medica l calcium Branch (1,250 mg) tablet ergocalcife Yes [id number] Take 1 Univers rol, 4-27 capsule by ity of vitamin d2, 00:00: mouth [place] 1,250 mcg 00 weekly. Medical (50,000 Branch unit) capsule calcium 2022-0 Yes [id number] 500mg Take 1 Uni vers carbonate 4-27 tablet by ity o f (CALCIUM 00:00: mouth [place] 500) 500 mg 00 daily. Medica l calcium Branch (1,250 mg) tablet ergocalcife 2022-0 Yes [id number] Take 1 Univers rol, 4-27 capsule by ity of vitamin d2, 00:00: mouth [place] 1,250 mcg 00 weekly. Medical (50,000 Branch unit) capsule calcium 2022-0 Yes [id number] 500mg Take 1 Uni vers carbonate 4-27 tablet by ity o f (CALCIUM 00:00: mouth [place] 500) 500 mg 00 daily. Medica l calcium Branch (1,250 mg) tablet ergocalcife 2-0 Yes [id number] Take 1 Univers rol, 4-27 capsule by ity of vitamin d2, 00:00: mouth [place] 1,250 mcg 00 weekly. Medical (50,000 Branch unit) capsule calcium 2-0 Yes [id number] 500mg Take 1 Uni vers carbonate 4-27 tablet by ity o f (CALCIUM 00:00: mouth [place] 500) 500 mg 00 daily. Medica l calcium Branch (1,250 mg) tablet ergocalcife 2-0 Yes [id number] Take 1 Univers rol, 4-27 capsule by ity of vitamin d2, 00:00: mouth [place] 1,250 mcg 00 weekly. Medical (50,000 Branch unit) capsule fluticasone 2-0 Yes [id number] 2{spray Use 2 Univers propionate 1-06 } Sprays in ity of 50 00:00: each [place] mcg/actuati 00 nostril Medic al on nasal daily. Branch spray fluticasone 2-0 Yes [id number] 2{spray Use 2 Univers propionate 1-06 } Sprays in ity of 50 00:00: each [place] mcg/actuati 00 nostril Medic al on nasal daily. Branch spray fluticasone 2-0 Yes [id number] 2{spray Use 2 Univers propionate 1-06 } Sprays in ity of 50 00:00: each [place] mcg/actuati 00 nostril Medic al on nasal daily. Branch spray fluticasone Yes [id number] 2{spray Use 2 Univers propionate 1-06 } Sprays in ity of 50 00:00: each [place] mcg/actuati 00 nostril Medic al on nasal daily. Branch spray fluticasone Yes [id number] 2{spray Use 2 Univers propionate 1-06 } Sprays in ity of 50 00:00: each [place] mcg/actuati 00 nostril Medic al on nasal daily. Branch spray fluticasone Yes [id number] 1{spray Use 1 Univers propionate 9-09 } [place] in ity o f 50 00:00: each [place] mcg/actuati 00 nostril Medic al on nasal daily. Branch spray fluticasone Yes [id number] 1{spray Use 1 Univers propionate 9-09 } [place] in ity o f 50 00:00: each [place] mcg/actuati 00 nostril Medic al on nasal daily. Branch spray fluticasone Yes [id number] 1{spray Use 1 Univers propionate 9-09 } [place] in ity o f 50 00:00: each [place] mcg/actuati 00 nostril Medic al on nasal daily. Branch spray fluticasone Yes [id number] 1{spray Use 1 Univers propionate 9-09 } [place] in ity o f 50 00:00: each [place] mcg/actuati 00 nostril Medic al on nasal daily. Branch spray fluticasone Yes [id number] 1{spray Use 1 Univers propionate 9-09 } [place] in ity o f 50 00:00: each [place] mcg/actuati 00 nostril Medic al on nasal daily. Branch spray ergocalcife 2021- No [id number] Take 1 Univers rol, 05-13 capsule by ity of vitamin d2, 00:00: 00:00 [place] 1,250 mcg 00 :00 weekly. Medical (50,000 Branch unit) capsule calcium 2021- No [id number] 500mg Take 1 Un cristian carbonate 05-13 tablet by ity of (CALCIUM 00:00: 00:00 mouth [place] 500) 500 mg 00 :00 daily. Medica l calcium Branch (1,250 mg) tablet Immunizations Ordered Filled Immunization Date Status Comments [facility] e Immunization Name Name SARS-COV-2 COVID-19 2021-04-29 Completed Unive rsity of MODERNA VACCINE 00:00[facility]OV[facility]2 COVID-19 2021-04-29 Completed Unive rsity of MODERNA VACCINE 00:00:[facility] SARS-COV-2 COVID-19 2021-04-29 Completed Unive rsity of MODERNA VACCINE 00:00:00 [facility] SARS-COV-2 COVID-19 2021-04-29 Completed Unive rsity of MODERNA VACCINE 00:00:00 [facility] SARS-COV-2 COVID-19 2021-04-29 Completed Unive rsity of MODERNA VACCINE 00:00:00 [facility] Branch SARS-COV-2 COVID-19 2021-03-06 Completed Unive rsity of MODERNA VACCINE 00:00:00 [facility] Branch SARS-COV-2 COVID-19 2021-03-06 Completed Unive rsity of MODERNA VACCINE 00:00:00 [facility] SARS-COV-2 COVID-19 2021-03-06 Completed Unive rsity of MODERNA VACCINE 00:00:00 [facility] Branch SARS-COV-2 COVID-19 2021-03-06 Completed Unive rsity of MODERNA VACCINE 00:00:00 [facility] Branch SARS-COV-2 COVID-19 2021-03-06 Completed Unive rsity of MODERNA VACCINE 00:00:00 [facility] Vital Signs Vital Name Observation Time Observation Value Comments Source Systolic blood 2022-02-13 19:50:00 108 mm[Hg] Univer sity of pressure [facility] Diastolic blood 2022-02-13 19:50:00 73 mm[Hg] Unive rsity of pressure [facility] Heart rate 2022-02-13 19:50:00 71 /min [facility] Body temperature 2022-02-13 19:50:00 36.78 Hollie Univ ersity of [facility] Respiratory rate 2022-02-13 19:50:00 17 /min Univ ersity of [facility] Body height 2022-02-13 19:50:[address] [facility] Body weight 2022-02-13 19:50:[address] [facility] BMI 2022-02-13 19:50:00 28.34 kg/m2 [facility] Oxygen saturation in 2022-02-13 19:50:00 98 /min University of Arterial blood by [facility] Pulse oximetry Branch Systolic blood 2021-12-29 18:15:00 115 mm[Hg] Univer sity of pressure [facility] Diastolic blood 2021-12-29 18:15:00 67 mm[Hg] Unive rsity of pressure [facility] Heart rate 2021-12-29 18:15:00 72 /min [facility] Body temperature 2021-12-29 18:15:00 36.83 [facility]ie [facility] rate 2021-12-29 18:15:00 18 /min [facility] Body height 2021-12-29 18:15:[address] [facility] Body weight 2021-12-29 18:15:[address] [facility] BMI 2021-12-29 18:15:00 28.17 kg/m2 [facility] Oxygen saturation in 2021-12-29 18:15:00 98 /min University of Arterial blood by [facility] Pulse oximetry Branch Procedures This patient has no known procedures. Encounters Start End Encounter Admission Attending Care Care Encounter Source Date/Time Date/Time Type Type Clinicians Facility Department ID 2022-02-13 2022-02-13 [id number] Univers 14:40:00 15:00:00 Care [employer] [id number] it y of [place] [id number] Asher as DOUGLAS?BLEA [phone] [address] MEDICAL OFFICE BUILDING 2022-02-13 2022-02-13 Outpatient R [facility] [id number] Univers 14:40:00 14:40:00 [id number] ity [facility] 2022-02-13 2022-02-13 Outpatient R AMEENA [facility] [id number] Univers 14:40:00 14:40:00 ROCHELLE ity of [facility] 2022-02-13 2022-02-13 Nurse NABILA Maddox [id number] Univers 00:00:00 00:00:00 Triage Skyla GARCIA [id number] it y of [facility] [id number] Asher as [phone] [address] 2022-01-27 2022-01-27 Telephone Concepcion [facility] [id number] [facility] 00:00:00 00:00:00 Delta BALLESTEROS [id number] i ty of [id number] [place] PROF[place] [phone] Wy dical NAL [address] [facility] 2021-12-29 2021-12-29 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, 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 [facility] [id number] [facility] 14:00:00 14:15:00 Visit Delta Javier [id number] ity [facility] [id number] [place] [phone] [facility] [address] [facility] 2021-12-29 2021-12-29 Office Concepcion [facility] [id number] [facility] 13:00:00 13:48:52 Visit Delta BALLESTEROS [id number] i ty [facility] [id number] [phone] Wy dical NAL 044 [facility] 2020-10-04 2020-10-04 Urgent Provider, [facility] [id number] 12:54:03 13:14:03 [facility] [id number] Care [place] [id number] Professio [phone] nal [facility] 2020-08-14 2020-08-14 Urgent Provider, [facility] [id number] 12:45:43 13:33:16 Care [facility] [id number] Care [place] [id number] Professio [phone] nal [facility] Building One Results This patient has no known results.
[2022-04-12] MEDS ORDERED: ONDANSETRON 4 MG (ODT) TAB ONE (06:29)
[2022-04-12 07:05] LABS: Urine Blood 2+ (Negative); Urine Glucose Negative (Negative); Urine Protein Negative (Negative); Urine pH 6.5 (5.0-7.0)
--- NOTE | 2022-04-12 07:11 | ER ---
Nurse's Notes [facility] Name: Maria A Veloz Age: 22 yrs Sex: Female : 2000 Arrival Date: 04/12/2022 Time: 05:46 Bed 19 Private MD: Diagnosis: Influenza infection;Migraine headache Presentation: 04/12 05:49 Chief complaint: Patient states: C/o H/A since 2100, sore throat, runny nose, sinus ll3 pressure, clogged ears, nausea, dizziness, and weakness. Coronavirus screen: congestion, fatigue, headache, nausea, runny nose, sore throat. Ebola Screen: No symptoms or risks identified at this time. Initial Sepsis Screen: Does the patient meet any 2 criteria? No. Patient's initial sepsis screen is negative. Does the patient have a suspected source of infection? No. Patient's initial sepsis screen is negative. Risk Assessment: Do you want to hurt yourself or someone else? Patient reports no desire to harm self or others. Onset of symptoms is unknown. Care prior to arrival: None. 05:49 Method Of Arrival: Ambulatory 3 05:49 Acuity: SARAH 3 ll3 Triage Assessment: 06:00 Headache History: The patient has had previous headaches and this one is different than ll3 previous episodes. General: Appears uncomfortable, Behavior is calm, cooperative, Reports feeling ill for Denies fever. Pain: Complains of pain in H/A Pain currently is 8 out of 10 on a pain scale. Pain began 2100 Also complains of nausea. EENT: Reports nasal discharge Sinus pressure. Neuro: Level of Consciousness is awake, alert, obeys commands, Oriented to person, place, time, situation, Reports dizziness, headache. Respiratory: Respiratory effort is even, unlabored, Respiratory pattern is regular, symmetrical. GI: Stools are reported to be loose, Abd is soft and non tender X 4 quads. Reports nausea. Derm: Skin is pink, warm \T\ dry. Musculoskeletal: Circulation, motion, and sensation intact. 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 - Social history:: Smoking status: Patient denies any tobacco usage or history of. Screenin:35 Abuse screen: Denies threats or abuse. Denies injuries from another. Nutritional calabrese screening: No deficits noted. Tuberculosis screening: No symptoms or risk factors identified. Fall Risk None identified. Assessment: 06:00 General: See triage assessment. ll3 Vital Signs: 05:49 BP 113 / 79; Pulse 86; Resp 18; Temp 97.8(O); Pulse Ox 100% on R/A; ll3 Obey Coma Score: 06:02 Eye Response: spontaneous(4). Verbal Response: oriented(5). Motor Response: obeys sd2 commands(6). Total: 15. ED Course: 05:46 Patient arrived in ED. 2 05:47 Bouchra Cruz MD is Attending Physician. sd2 06:00 Arm band placed on Patient placed in an exam room, on a stretcher, on pulse oximetry. ll3 06:16 Triage completed. 3 06:59 Carolina Roldan RN is Primary Nurse. ll3 07:35 Patient has correct armband on for positive identification. Bed in low position. calabrese 07:35 No provider procedures requiring assistance completed. calabrese 07:35 Patient did not have IV access during this emergency room visit. calabrese Administered Medications: 06:25 Drug: Ondansetron 4 mg Route: PO; ll3 07:23 Drug: Ketorolac 60 mg Route: IM; Site: right gluteus; calabrese Medication: 07:35 VIS not applicable for this client. calabrese Outcome: 07:10 Discharge ordered by . sd2 07:35 Discharged to home ambulatory. calabrese 07:35 Condition: good 07:35 Discharge instructions given to patient, Prescriptions given X 2. 07:36 Patient left the ED. calabrese Signatures: Gina Loyola 2 Carolina Roldan RN RN 3 Sania Guevara RN RN ha Dunlop, Stephanie, MD MD pr2
--- NOTE | 2022-04-12 07:11 | EDPHYS ---
Physician Documentation [facility] Name: Maria A Veloz Age: 22 yrs Sex: Female : 2000 Arrival Date: 04/12/2022 Time: 05:46 Bed 19 Private MD: ED Physician Bouchra Cruz HPI: 04/12 06:02 This 22 yrs old Female presents to ER via Unassigned with complaints of sd2 Headache, Sore Throat, Runny Nose. 06:02 22 yo F presents with CC of flu-like symptoms and headache that started 3 days ago. sd2 Reports her daughter had cold symptoms for 2 days recently that resolved. Reports she has had sinus pressure, congestion, sore throat and loose stools since symptoms started. Reports a history of migraine headaches and persistent migraine headache that started when she got to work at 9PM last night and made it difficult for her to concentrate with associated photophobia. Reports pain is located bilateral frontal area and her migraines are normally located in the occipital area. Denies any fever, CP, SOB or vomiting. Denies recent sick contacts. Reports there is a chance of . Also complains of urinary discomfort and possible UTI.. 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 - Social history:: Smoking status: Patient denies any tobacco usage or history of. ROS: 06:02 Constitutional: Negative for fever, chills, and weight loss, Eyes: Negative for injury, sd2 pain, redness, and discharge, Cardiovascular: Negative for chest pain, palpitations, and edema, Respiratory: Negative for shortness of breath, cough, wheezing. Abdomen/GI: Negative for abdominal pain, vomiting, diarrhea. Positive for nausea. MS/Extremity: Negative for injury and deformity, Skin: Negative for injury, rash, and discoloration, Neuro: Positive for headache. Negative for numbness and tingling. Exam: 06:02 Constitutional: This is a well developed, well nourished patient who is awake, alert, sd2 and in no acute distress. Head/Face: Normocephalic, atraumatic. Eyes: EOMI, normal conjunctiva bilaterally ENT: Nares patent. No nasal discharge, no septal abnormalities noted. Tympanic membranes are normal and external auditory canals are clear. Oropharynx with mild redness, no swelling or masses, or evidence of obstruction, uvula midline. Small exudate noted to L tonsil. Mucous membranes moist. Chest/axilla: Normal chest wall appearance and motion. Nontender with no deformity. Cardiovascular: Regular rate and rhythm with a normal S1 and S2. No gallops, murmurs, or rubs. 2+ distal pulses. Respiratory: Lungs have equal breath sounds bilaterally, clear to auscultation and percussion. No rales, rhonchi or wheezes noted. No increased work of breathing, no retractions or nasal flaring. Abdomen/GI: Soft, non-tender, with normal bowel sounds. No guarding or rebound. No evidence of tenderness throughout. Skin: Warm, dry with normal turgor. Normal color with no rashes, no lesions, and no evidence of cellulitis. MS/ Extremity: Pulses equal, no cyanosis. Neurovascular intact. Full, normal range of motion. Ambulatory without difficulty. Neuro: Awake and alert, GCS 15, oriented to person, place, time, and situation. Cranial nerves II-XII grossly intact. Motor strength 5/5 in all extremities. Sensory grossly intact. Cerebellar exam normal. Normal gait. Psych: Awake, alert, with orientation to person, place and time. Behavior, mood, and affect are within normal limits. Vital Signs: 05:49 BP 113 / 79; Pulse 86; Resp 18; Temp 97.8(O); Pulse Ox 100% on R/A; ll3 Oeby Coma Score: 06:02 Eye Response: spontaneous(4). Verbal Response: oriented(5). Motor Response: obeys sd2 commands(6). Total: 15. MDM: 05:49 Patient medically screened. sd2 06:02 Differential diagnosis: Tension ALAS, migraine ALAS, ICH, dehydration, electrolyte sd2 abnormality, MSK, meningitis, COVID, flu, URI among others. Data reviewed: vital signs, nurses notes. 07:07 Data reviewed: lab test result(s). Counseling: I had a detailed discussion with the sd2 patient and/or guardian regarding: the historical points, exam findings, and any diagnostic results supporting the discharge/admit diagnosis, lab results, the need for outpatient follow up, to return to the emergency department if symptoms worsen or persist or if there are any questions or concerns that arise at home. Medical screen evaluation completed. [facility] emergency medical condition absent. ED course: Labs reviewed. Flu test positive. COVID test pending. Strep neg. Urine dip with blood present but negative for infection. Pt currently on menstrual period. Advised of continued supportive care for symptoms and she will be called if her COVID test returns positive. Pt comfortable with plan for discharge and outpatient follow up. Verbalizes understanding of discharge plan and strict return precautions.. 04/12 06:02 Order name: SARS-COV-2 RT PCR (Document "Date of Onset" if Symptomatic) sd2 04/12 06:02 Order name: Influenza Screen (a \\T\\ B); Complete Time: 07:04 sd2 04/12 06:02 Order name: Strep; Complete Time: 07:04 sd2 04/12 06:02 Order name: Urine Microscopic Only sd2 04/12 07:06 Order name: Urine Dipstick-Ancillary EDIA 04/12 07:06 Order name: Throat Culture EDIA 04/12 06:02 Order name: Urine Dipstick-Ancillary (obtain specimen); Complete Time: 07:05 sd2 04/12 06:02 Order name: Urine Test (obtain specimen); Complete Time: 07:05 sd2 Administered Medications: 06:25 Drug: Ondansetron 4 mg Route: PO; ll3 07:23 Drug: Ketorolac 60 mg Route: IM; Site: right gluteus; alas Disposition Summary: 04/12/22 07:10 Discharge Ordered Location: Home sd2 Problem: new sd2 Symptoms: have improved sd2 Condition: Stable sd2 Diagnosis - Influenza infection sd2 - Migraine headache sd2 Followup: sd2 - With: Private Physician - When: 2 - 3 days - Reason: Recheck today's complaints, Continuance of care, Re-evaluation by your physician Followup: sd2 - With: Emergency Department - When: As needed - Reason: Discharge Instructions: - Discharge Summary Sheet sd2 - Form - Return To Work sd2 Forms: - Medication Reconciliation Form sd2 - Work release form iw - Thank You Letter sd2 - Antibiotic Education sd2 - Prescription Opioid Use sd2 Prescriptions: - Ibuprofen 600 mg Oral Tablet - take 1 tablet by ORAL route every 6 hours As needed take with food; 20 tablet; sd2 Refills: 0, Product Selection Permitted - Zofran 4 mg Oral Tablet - take 1 tablet by ORAL route every 6 hours Take as needed for nausea; 15 tablet; sd2 Refills: 0, Product Selection Permitted Signatures: Dispatcher [employer] Carolina Salinas RN RN ll3 Sania Guevara RN RN ha Dunlop, Stephanie, MD MD sd2
[2022-04-12 07:23] LABS: Urine Bacteria None Seen /HPF (<20); Urine RBC <5 /HPF (None Seen)
[2022-04-12] MEDS ORDERED: KETOROLAC 30 MG/ML INJ ONE ×2 (07:24→07:32)
[2022-04-12 08:33] VITALS: BP 113/79; TEMP 97.8; O2SAT 100
== END 2022-04-12 07:36 | disposition home or self-care (01) ==
LOC: ER 05:42
DX: J11.1 Influenza due to unidentified influenza virus with other respiratory manifestations (principal); G43.909 Migraine, unspecified, not intractable, without status migrainosus; Z20.822 Contact with and (suspected) exposure to COVID-19; Z88.7 Allergy status to serum and vaccine; Z91.048 Other nonmedicinal substance allergy status
CPT/HCPCS: 87070; 87081; 87804 ×2; U0003; Q0162; 81003; 81015; 96372; 99283

== ENCOUNTER 2022-08-26 23:48 | Emergency (ER) | payer OTHER ==
--- OUTSIDE RECORDS SUMMARY | 2022-08-26 23:54 | XMS REPORT | Continuity of Care Document ---
:2000 Author Organization [facility] t Address [address] [place] [address] Dr. Huitron[address] [place] [address] Care Team Providers Name Role Phone MARYBEL JAVIER Primary Care Physician Unavailable MADIHA ASH Attending Clinician Unavailable Madiha Ash MD Attending Clinician Unknown, Attending Attending Clinician Unavailable Rochelle Bowen Attending Clinician ROCHELLE LINDQUIST Attending Clinician Unavailable Skyla Maddox RN Attending Clinician Unavailable Marybel Javier MD Attending Clinician 2, [facility] Attending Clinician Unavailable MARYBEL JAVIER Attending Clinician Unavailable Kiersten Rob RN Attending Clinician Unavailable MIAH JACOBO Attending Clinician Unavailable UNKNOWN, ATTENDING Attending Clinician Unavailable Darwin RNJossy Attending Clinician Unavailable EbHenry Schulte Attending Clinician Doctor Unassigned, Wanda Attending Clinician Unavailable HENRY TOWNSEND Attending Clinician Unavailable Only, Irineo Db Test Attending Clinician Unavailable INES LUJAN Attending Clinician Unavailable JADE RSOE Attending Clinician Unavailable iKerra Jcakson LMSW Attending Clinician Unavailable Provider, [facility] Attending Clinician Unavailable Alvina Funk Attending Clinician Giana Thibodeaux Attending Clinician GLORIA LEIGH Attending Clinician Unavailable Visit, Irineo-Rmraman Nurse Attending Clinician Unavailable Jade Valdivia Attending Clinician [phone] Payers Payer Name Policy Type Policy Number Effective Date Expiration Date Brenda erazo [facility] [id number] 2019 MELITA DAMIAN STAR 00:00:00 [place] [id number] 2019 00:00:00 Problems Condition Condition Condition Status Onset Resolution Last Treating Co mments Source Name Details Category Date Date Treatment Clinician Date Generalize Generalize Disease Active U nivers d anxiety d anxiety 4-27 ity of disorder disorder 00:00: [place] [facility] 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 nivers depression depression 4-27 it y of 00:00: [place] [facility] Vitamin D Vitamin D Disease Active Uni vers deficiency deficiency 05-13 it y of 00:00: [place] [facility] Has poorly Has poorly Disease Active U nivers balanced balanced 05-13 ity of diet diet 00:00: [place] [facility] Hospital Disease Active Unive rs discharge discharge 05-13 ity of follow[facility]up [facility] Pap smear Pap smear Disease Active Uni vers for for 05-13 ity of cervical cervical 00:00: [place] cancer cancer 00 Medical screening screening Bran [...] hepatitis 5-12 ity of C C 00:00: [place] screening screening 00 Medi cornelio test test Branch Vertigo Vertigo Disease Active 2019- Univers 2-05 ity of 00:00: [place] 00 [facility] Branch Amenorrhea Amenorrhea Disease Active 2019- U nivers due to due to 2-05 ity of Depo Depo 00:00: [place] Provera Provera 00 Medical Branch Dyspareuni Dyspareuni Disease Active U nivers a in a in 2-05 ity of female female 00:00: [place] [facility] Urinary Urinary Disease Active 2020- Univers tract tract 2-05 [place] of infection infection 00:[place] without without 00 Medical hematuria, hematuria, Br anch site site unspecifie unspecifie d d Urticaria, Urticaria, Disease Active 2020-0 U nivers unspecifie unspecifie 2-05 it y of d d 00:00: [place] [address] Medical Branch Anxiety Anxiety Disease Active 2020- Univers 2-05 ity of 00:00: [place] [address] Medical Branch Chronic Chronic Disease Active 2020- Univers fatigue fatigue 2-05 ity of syndrome syndrome 00:00: [place] [address] Medical Branch Depo-Prove Depo-Prove Disease Active 2019 Overview : Univers ra ra 9-24 Formattin ity of contracept contracept 00:00: g of this [place] lili status lili status 00 note Me dical might be Branch different from the original. See scanned records received depo on 02-12-19 Breakthrou Breakthrou Disease Active 2019 U nivers gh gh 8-16 ity of bleeding bleeding 00:00: [place] on depo on depo 00 Medical provera provera Branch Disease Active 2019- U nivers hemorrhage hemorrhage 4-18 it y of 00:00: [address] Branch Acute Acute Disease Active 2019- Univers blood loss blood loss 4-18 it y of anemia anemia 00:00: [address] Allergies, Adverse Reactions, Alerts Allergy Allergy Status Severity Reaction(s) Onset Inactive Treating Comm ents Source Name Type Date Date Clinician NO KNOWN Drug Active Univers ALLERGIE Class ity of S [facility] Social History Social Habit Start Date Stop Date Quantity Comments Source Exposure to 2022-06-25 2022-07-05 Not sure [facility] SARS-CoV-2 00:00:00 14:06:00 [facility] (event) Branch Alcohol intake 2022-07-05 2022-07-05 Lifetime University of 00:00:00 00:00:00 non-drinker [facility] (finding) [place] Tobacco use and 2020-06-10 2020-06-10 Smokeless tobacco Un iversity of exposure 00:00:00 00:00:00 non-user [facility] Sex Assigned At 2000 2000 Universit y of 00:00:00 00:00:00 [facility] Smoking Status Start Date Stop Date Source Never smoked tobacco [facility] Medications Ordered Filled Start Stop Current Ordering Indication Dosage Frequency Signature Comments Components Source Medication Medication Date Date Medication? Clinician (SIG) Name Name ondansetron 2021-09- No [id number] 8mg U gabby (ZOFRAN-ODT 09-04 ity of ) 20:15: 19:20 [place] disintegrat 00 :00 Medical ing tablet Branch 8 mg ondansetron 2021-09- No [id number] 8mg 8 mg, Univers (ZOFRAN-ODT 09-04 Oral, ity of ) 20:15: 19:20 ONCE, 1 [place] disintegrat 00 :00 dose, On Medi cornelio ing tablet Tue Branch 8 mg 07/05/22 at 1515, Routine ondansetron 2021-09 Yes [id number] 4mg Take 1 Univers 4 mg -01 tablet by ity of disintegrat 00:00: mouth [place] ing tablet 00 every 8 Medica l (eight) Branch hours as needed for Nausea and Vomiting (N/V). methylPREDN 0 Yes [id number] Take by [facility] ISolone 6-12 mouth ity of (MEDROL, 00:00: SEE-INSTRU Asher as SELVIN,) 4 mg 00 CTIONS. Medica l tablets follow Branch package directions methylPREDN 0 Yes [id number] Take by [facility] ISolone 6-12 mouth ity of (MEDROL, 00:00: SEE-INSTRU Asher as SELVIN,) 4 mg 00 CTIONS. Medica l tablets follow Branch package directions calcium Yes [id number] 500mg Take 1 Uni vers carbonate 4-27 tablet by ity o f (CALCIUM 00:00: mouth [place] 500) 500 mg 00 daily. Medica l calcium Branch (1,250 mg) tablet ergocalcife Yes [id number] Take 1 Univers rol, 4-27 capsule by ity of vitamin d2, 00:00: mouth [place] 1,250 mcg 00 weekly. Medical (50,000 Branch unit) capsule calcium Yes [id number] 500mg Take 1 Uni vers carbonate 4-27 tablet by ity o f (CALCIUM 00:00: mouth [place] 500) 500 mg 00 daily. Medica l calcium Branch (1,250 mg) tablet ergocalcife 2022-0 Yes [id number] Take 1 Univers rol, 4-27 capsule by ity of vitamin d2, 00:00: mouth [place] 1,250 mcg 00 weekly. Medical (50,000 Branch unit) capsule calcium 2022-0 Yes [id number] 500mg Take 1 Uni vers carbonate 4-27 tablet by ity o f (CALCIUM 00:00: mouth [place] 500) 500 mg 00 daily. Medica l calcium Branch (1,250 mg) tablet ergocalcife 2022-0 Yes [id number] Take 1 Univers rol, 4-27 capsule by ity of vitamin d2, 00:00: mouth [place] 1,250 mcg 00 weekly. Medical (50,000 Branch unit) capsule calcium 2022-0 Yes [id number] 500mg Take 1 Uni vers carbonate 4-27 tablet by ity o f (CALCIUM 00:00: mouth [place] 500) 500 mg 00 daily. Medica l calcium Branch (1,250 mg) tablet ergocalcife 2022-0 Yes [id number] Take 1 Univers rol, 4-27 capsule by ity of vitamin d2, 00:00: mouth [place] 1,250 mcg 00 weekly. Medical (50,000 Branch unit) capsule calcium 2022-0 Yes [id number] 500mg Take 1 Uni vers carbonate 4-27 tablet by ity o f (CALCIUM 00:00: mouth [place] 500) 500 mg 00 daily. Medica l calcium Branch (1,250 mg) tablet ergocalcife 2022-0 Yes [id number] Take 1 Univers rol, 4-27 capsule by ity of vitamin d2, 00:00: mouth [place] 1,250 mcg 00 weekly. Medical (50,000 Branch unit) capsule calcium 2022-0 Yes [id number] 500mg Take 1 Uni vers carbonate 4-27 tablet by ity o f (CALCIUM 00:00: mouth [place] 500) 500 mg 00 daily. Medica l calcium Branch (1,250 mg) tablet ergocalcife 2022-0 Yes [id number] Take 1 Univers rol, 4-27 capsule by ity of vitamin d2, 00:00: mouth [place] 1,250 mcg 00 weekly. Medical (50,000 Branch unit) capsule fluticasone 2022-0 Yes [id number] 2{spray Use 2 Univers propionate 1-06 } Sprays in ity of 50 00:00: each [place] mcg/actuati 00 nostril Medic al on nasal daily. Branch spray fluticasone 2021-0 Yes [id number] 2{spray Use 2 Univers propionate 1-06 } Sprays in ity of 50 00:00: each [place] mcg/actuati 00 nostril Medic al on nasal daily. Branch spray fluticasone 2021-0 Yes [id number] 2{spray Use 2 Univers propionate 1-06 } Sprays in ity of 50 00:00: each [place] mcg/actuati 00 nostril Medic al on nasal daily. Branch spray fluticasone 2021-0 Yes [id number] 2{spray Use 2 Univers propionate 1-06 } Sprays in ity of 50 00:00: each [place] mcg/actuati 00 nostril Medic al on nasal daily. Branch spray fluticasone 2021-0 Yes [id number] 2{spray Use 2 Univers propionate 1-06 } Sprays in ity of 50 00:00: each [place] mcg/actuati 00 nostril Medic al on nasal daily. Branch spray fluticasone 2021-0 Yes [id number] 2{spray Use 2 Univers propionate 1-06 } Sprays in ity of 50 00:00: each [place] mcg/actuati 00 nostril Medic al on nasal daily. Branch spray fluticasone 2020-0 Yes [id number] 1{spray Use 1 Univers propionate 9-09 } [place] in ity o f 50 00:00: each [place] mcg/actuati 00 nostril Medic al on nasal daily. Branch spray fluticasone 2020-0 Yes [id number] 1{spray Use 1 Univers propionate 9-09 } [place] in ity o f 50 00:00: each [place] mcg/actuati 00 nostril Medic al on nasal daily. Branch spray fluticasone 2020-0 Yes [id number] 1{spray Use 1 Univers propionate 9-09 } [place] in ity o f 50 00:00: each [place] mcg/actuati 00 nostril Medic al on nasal daily. Branch spray fluticasone 2020-0 Yes [id number] 1{spray Use 1 Univers propionate 9-09 } [place] in ity o f 50 00:00: each [place] mcg/actuati 00 nostril Medic al on nasal daily. Branch spray fluticasone Yes [id number] 1{spray Use 1 Univers propionate 05-13 } [place] in ity o f 50 00:00: each [place] mcg/actuati 00 nostril Medic al on nasal daily. Branch spray fluticasone Yes [id number] 1{spray Use 1 Univers propionate 05-13 } [place] in ity o f 50 00:00: each [place] mcg/actuati 00 nostril Medic al on nasal daily. Branch spray ergocalcife 2021- No [id number] Take 1 Univers rol, 05-13 capsule by ity of vitamin d2, 00:00: 00:00 [place] 1,250 mcg 00 :00 weekly. Medical (50,000 Branch unit) capsule calcium 2021- No [id number] 500mg Take 1 Un cristian carbonate 05-13 tablet by ity of (CALCIUM 00:00: 00:00 mouth [place] 500) 500 mg 00 :00 daily. Medica l calcium Branch (1,250 mg) tablet Immunizations Ordered Filled Immunization Date Status Comments [facility] e Immunization Name Name SARS-COV-2 COVID-19 2021-04-29 Completed Unive rsity of MODERNA VACCINE 00:00:00 [facility] ical Branch SARS-COV-2 COVID-19 2021-04-29 Completed Unive rsity of MODERNA VACCINE 00:00:00 [facility] Branch SARS-COV-2 COVID-19 2021-04-29 Completed Unive rsity of MODERNA VACCINE 00:00:00 [facility] ical Branch SARS-COV-2 COVID-19 2021-04-29 Completed Unive rsity of MODERNA VACCINE 00:00:00 [facility] ical Branch SARS-COV-2 COVID-19 2021-04-29 Completed Unive rsity of MODERNA VACCINE 00:00:00 [facility] ical Branch SARS-COV-2 COVID-19 2021-04-29 Completed Unive rsity of MODERNA 12+ YRS 00:00:00 [facility] VACCINE Branch SARS-COV-2 COVID-19 2021-03-06 Completed Unive rsity of MODERNA VACCINE 00:00:00 [facility] Branch SARS-COV-2 COVID-19 2021-03-06 Completed Unive rsity of MODERNA VACCINE 00:00:00 [place] [facility] ical Branch SARS-COV-2 COVID-19 2021-03-06 Completed Unive rsity of MODERNA VACCINE 00:00:00 [place] [facility] ical Branch SARS-COV-2 COVID-19 2021-03-06 Completed Unive rsity of MODERNA VACCINE 00:00:00 [place] [facility] ical Branch SARS-COV-2 COVID-19 2021-03-06 Completed Unive rsity of MODERNA VACCINE 00:00:00 [facility] ical Branch SARS-COV-2 COVID-19 2021-03-06 Completed Unive rsity of MODERNA 12+ YRS 00:00:00 [facility] ical VACCINE Branch Vital Signs Vital Name Observation Time Observation Value Comments Source Systolic blood 2022-07-05 19:08:00 112 mm[Hg] Univer sity of pressure [facility] Diastolic blood 2022-07-05 19:08:00 56 mm[Hg] Unive rsity of pressure [facility] Heart rate 2022-07-05 19:08:00 62 /min General acute hospital Body temperature 2022-07-05 19:08:[address] [facility] Respiratory rate 2022-07-05 19:08:00 17 /min [facility] Body height 2022-07-05 19:08:00 160 cm General acute hospital Body weight 2022-07-05 19:08:00 71.328 kg General acute hospital BMI 2022-07-05 19:08:00 27.86 kg/m2 General acute hospital Oxygen saturation in 2022-07-05 19:08:00 98 /min [facility] Arterial blood by [facility] Pulse oximetry Branch Systolic blood 2022-02-13 19:50:00 108 mm[Hg] Univer sity of pressure [facility] Diastolic blood 2022-02-13 19:50:00 73 mm[Hg] Unive rsity of pressure [facility] Heart rate 2022-02-13 19:50:00 71 /min General acute hospital Body temperature 2022-02-13 19:50:[address] [facility] [place] [facility] Respiratory rate 2022-02-13 19:50:00 17 /min Univ ersity of [facility] Body height 2022-02-13 19:50:00 160 cm Universi ty of [facility] Branch Body weight 2022-02-13 19:50:00 72.576 kg Universi ty of [facility] BMI 2022-02-13 19:50:00 28.34 kg/m2 Universi ty of [facility] Oxygen saturation in 2022-02-13 19:50:00 98 /min University of Arterial blood by [facility] Pulse oximetry Branch Systolic blood 2021-12-29 18:15:00 115 mm[Hg] Univer sity of pressure [facility] Diastolic blood 2021-12-29 18:15:00 67 mm[Hg] Unive rsity of pressure [facility] Heart rate 2021-12-29 18:15:00 72 /min Universi ty of [facility] Body temperature 2021-12-29 18:15:[address] [facility] Respiratory rate 2021-12-29 18:15:00 18 /min [facility] ersity of [facility] Body height 2021-12-29 18:15:00 160 cm Universi ty of [facility] Body weight 2021-12-29 18:15:00 72.122 kg Universi ty of [facility] BMI 2021-12-29 18:15:00 28.17 kg/m2 Universi ty of [facility] Oxygen saturation in 2021-12-29 18:15:00 98 /min University of Arterial blood by [facility] Pulse oximetry Branch Procedures This patient has no known procedures. Encounters Start End Encounter Admission Attending Care Care Encounter Source Date/Time Date/Time Type Type Clinicians Facility Department ID 2022-07-05 2022-07-05 Outpatient R ISAI [facility] [id number] Univers 13:20:00 14:21:51 MADIHA hook [facility] 2022-07-05 2022-07-05 Madiha Forrest [facility] [id number] Univers 13:20:00 14:21:51 Care Unknown, Attending HEALTH [id number] ity [facility] [id number] Asher as DUSTIN?BLEA [phone] [facility] [address] MEDICAL OFFICE [facility] 2022-02-13 2022-02-13 Urgent Ameena [facility] 1.2.840.114 [id number] Univers 14:40:00 15:00:00 Care [facility] [id number] it y of [place] [id number] Asher as DUSTIN?BLEA [phone] [address] OFFICE [facility] 2022-02-13 2022-02-13 Outpatient R AMEENA [facility] [id number] Univers 14:40:00 14:40:00 [facility] 2022-02-13 2022-02-13 Nurse NABILA Maddox 1.2.840.114 [id number] Univers 00:00:00 00:00:00 Triage Skyla COOPERY [id number] it y of [facility] [id number] Asher as [phone] [address] 2022-01-27 2022-01-27 Telephone [facility] [id number] Univers 00:00:00 00:00:00 Marybel BALLESTEROS [id number] i ty of [id number] [place] PROFESSIO [phone] Sd dical NAL 044 [facility] 2021-12-29 2021-12-29 Vendor Relationship Manager 2, Adc Lab [facility] 1.2.840.114 [id number] Univers 14:00:00 14:15:00 Visit Marybel Javier [id number] ity of [place] [id number] [place] PROFESS[place] [phone] Sd dicct NAL 353 [facility] 2021-12-29 2021-12-29 Outpatient R CONCEPCION [facility] [id number] Univers 14:00:00 14:00:00 MARYBEL pamela [facility] 2021-12-29 2021-12-29 Office [facility] 1.2.840.114 [id number] Univers 13:00:00 13:48:52 Visit Marybel BALLESTEROS [id number] i ty [place] [id number] [place] PROFESS[place] [phone] Sd dical NAL 044 Branch BUILDING 2021-11-21 2021-11-21 Letter NABILA Rob [id number] Univers 00:00:00 00:00:00 (Out) Kiersten GARCIA [id number] it y of [facility] [id number] Asher as [phone] [facility] [address] [place] 2021-11-20 2021-11-20 Outpatient R ODALIS [facility] [id number] Univers 15:40:00 16:33:41 OMAYEMI ity [facility] 2021-11-20 2021-11-20 Outpatient R REED, [facility] [id number] Univers 16:00:00 16:00:00 ATTENDING ity [facility] 2021-11-20 2021-11-20 Outpatient Nahomi LINDQUIST [facility] [id number] Univers 14:40:00 14:40:00 [facility] 2021-10-28 2021-10-28 Telephone Darwin [place] 1.2.840.114 [id number] Univers 00:00:00 00:00:00 , Jossy WILLIS [id number] ity of [id number] [place] [phone] [facility] [address]86 [place] 2021-09-09 2021-09-09 Rochelle Spears [facility] 1.2.840.114 [id number] Univers 13:00:00 13:20:00 Care [facility] [id number] ity of [place] [id number] Asher as DUSTIN?BLEA [phone] Sd dical JANET [address] MEDICAL OFFICE BUILDING 2021-09-09 2021-09-09 Outpatient Nahomi LINDQUIST [facility] [id number] Univers 13:00:00 13:08:41 [facility] 2021-09-09 2021-09-09 Orders Doctor DAHL 1.2.840.114 [id number] Univers 00:00:00 00:00:00 Only Unassigned, JOSE [id number] ity of [place] [facility] [id number] Asher as [id number] [facility] [address] [place] 2021-07-09 2021-07-09 NABILA Atkinson 1.2.840.114 [id number] Univers 00:00:00 00:00:00 (Out) Kiersten GARCIA [id number] it y of HOSPITAL [id number] Asher as [phone] [facility] [address] [place] 2021-07-08 2021-07-08 Outpatient R LLOYD [facility] [id number] Univers 16:00:00 16:38:08 HENRY pamela [facility] 2021-07-08 2021-07-08 Urgent Lloyd [facility] 1.2.840.114 [id number] Univers 15:57:42 16:38:08 Care [facility] [employer] [id number] it y of [place] [id number] Asher as DUSTIN?BLEA [phone] [address] MEDICAL OFFICE BUILDING 2021-07-08 2021-07-08 Outpatient R LLOYD [facility] [id number] Univers 16:00:00 16:00:00 HENRY [facility] 2021-06-25 2021-06-25 Outpatient R CONCEPCION [facility] [id number] Univers 13:00:00 13:00:00 MARYBEL pamela [facility] 2021-05-25 2021-05-25 Orders Doctor DAHL 1.2.840.114 [id number] Univers 00:00:00 00:00:00 Only Unassigned, JOSE [id number] ity of [place] [facility] [id number] Asher as [id number] [address] 2021-05-22 2021-05-22 Laboratory Only, Ang Db Test [facility] 1.2.8 40.114 [id number] Univers 14:30:11 14:45:11 Only Madiha [facility] [id number] ity of [place] [id number] Asher as Dustin?Blea [phone] Sd coy cooley [address] Medical Office Building 2021-05-22 2021-05-22 Outpatient R [facility] [id number] Univers 12:30:00 12:30:[facility] 2021-05-22 2021-05-22 Outpatient [facility] [id number] Univers 10:15:00 10:15:00 INES hook o [facility] 2021-05-21 2021-05-21 Outpatient R [facility] [id number] Univers 20:40:00 20:40:00 INES hook o [facility] 2021-05-17 2021-05-17 Outpatient R [facility] [id number] Univers 17:40:00 17:40:00 [facility] 2021-05-13 2021-05-13 Office [facility] 1.2.840.114 [id number] Univers 16:40:36 17:05:21 Visit Marybel Ballesteros [id number] i ty of [place] [id number] Professio [phone] Sd coy [place] 044 [facility] 2021-05-13 2021-05-13 [facility] [id number] Univers 16:20:00 16:20:00 MARYBEL [facility] 2021-03-15 2021-03-15 Outpatient R MLITON, [facility] [id number] Univers 15:30:00 15:30:00 JADE shanaey o f [facility] 2021-02-26 2021-02-26 Telephone [facility] 1.2.840.114 [id number] Univers 00:00:00 00:00:00 Marybel Ballesteros [id number] i ty of [id number] Profess[place] [phone] Sd taurusal nal 231 Branch [facility] 2021-01-13 2021-01-13 Vendor Relationship Manager 2, Adc Lab [facility] 1.2.840.114 [id number] Univers 15:05:59 15:20:59 Visit Marybel Javier [id number] ity of [id number] Profess[place] [phone] Sd dical [facility] 353 [facility] 2021-01-13 2021-01-13 Office Edwarclaribelwilliam [facility] 1.2.840.114 [id number] Univers 13:43:56 15:04:25 Visit Marybel [place] [id number] i ty of [id number] Professio [phone] Sd dic[facility] 044 [facility] 2021-01-13 2021-01-13 Outpatient R CONCEPCION [facility] [id number] Univers 13:40:00 13:40:00 MARYBEL hook [facility] 2020-12-03 2020-12-03 Sina Dalia Jacksonjavid 1.2.840.114 [id number] Univers 00:00:00 00:00:00 Management Kierra Willis [id number] ity of [place] [id number] [place] [id number] [address] 2020-10-04 2020-10-04 Urgent Provider, [facility] [id number] 12:54:03 13:14:03 Care [facility] [id number] Care [place] [id number] Professio [phone] [address] 2020-10-04 2020-10-04 Urgent Provider, [facility] 1.2.840.114 [id number] Univers 12:54:03 13:14:03 Care Ameena, Rochel[facility] [id number] ity of [place] [id number] Asher as Professio [phone] [address] One 2020-10-04 2020-10-04 Outpatient Nahomi LINDQUIST [facility] [id number] Univers 13:00:00 13:00:00 ROCHELLE hook [facility] 2020-09-05 2020-09-05 Outpatient Nahomi LINDQUIST [facility] [id number] Univers 10:00:00 10:00:00 ROCHELLE ity of [facility] 2020-08-14 2020-08-14 Urgent Provider, [facility] [id number] 12:45:43 13:33:16 Care [facility] [id number] Care [place] [id number] Professio [phone] [place] [address] Office [facility] 2020-08-14 2020-08-14 Urgent Provider, [facility] [id number] Univers 12:45:43 13:33:16 Care Theodora, [facility] [id number] ity of [place] [id number] Asher as Professio [phone] [address] 2020-08-14 2020-08-14 Outpatient R [facility] [id number] Univers 13:00:00 13:00:00 ity [facility] 2020-08-14 2020-08-14 Letter Doctor NABILA [id number] Univers 00:00:00 00:00:00 (Out) Unassigned, JOSE [id number] ity of [place] [facility] [id number] Asher as [phone] [address] 2020-06-10 2020-06-10 Urgent Provider, [facility] [id number] Univers 11:03:09 11:33:58 Care Giana [facility] [id number] ity of [place] [id number] Asher as Professio [phone] [address] Office [facility] 2020-06-10 2020-06-10 Outpatient R [facility] [id number] Univers 11:00:00 11:00:00 ity [facility] 2020-06-10 2020-06-10 Telephone Provider, [facility] [id number] Univers 00:00:00 00:00:00 [facility] [id number] ity of Care [place] [id number] Asher as Professio [phone] [facility] 044 [facility] 2020-03-19 2020-03-19 Outpatient R GLORIA LEIGH [facility] [id number] Univers 14:00:00 14:00:00 ity [facility] 2019-11-21 2019-11-21 Outpatient [facility] [id number] Univers 15:20:00 15:20:00 MARYBEL itpamela [facility] 2019-10-18 2019-10-18 Telephone [facility] 1.2.840.114 [id number] Univers 00:00:00 00:00:00 Marybel Ballesteros [id number] i ty of [id number] Profess[place] [phone] [facility] 044 [facility] 2019-10-10 2019-10-10 Vendor Relationship Manager 2, Adc Lab [facility] 1.2.840.114 [id number] Univers 08:19:48 08:34:48 Visit Marybel Javier [id number] ity of [id number] [phone] [facility] 353 [facility] 2019-10-10 2019-10-10 Orders Doctor NABILA 1.2.840.114 [id number] Univers 00:00:00 00:00:00 Only Unassigned, JOSE [id number] ity of [place] [facility] [id number] Asher as [phone] [address] 2019-10-09 2019-10-09 Office [facility] 1.2.840.114 [id number] Univers 12:49:19 16:10:54 Visit Marybel Ballesteros [id number] i ty [id number] [phone] [facility] 044 [facility] 2019-10-09 2019-10-09 [facility] 1.2.840.114 [id number] Univers 00:00:00 00:00:00 Marybel Ballesteros [id number] i ty of [place] [id number] [place]ren[place] Perezessio [phone] S[place] dical nal 044 [facility] 2019-05-17 2019-05-17 Nurse Visit, Mikhail Nurse [facility] 1.2 .840.114 [id number] Univers 14:12:09 14:39:26 Visit Jade Rose [employer] 350.1.13. 10 ity of [place] [id number] Asher as MATERNAL [phone] [facility] ical & CHILD [address] [place] [address] 2019-04-30 2019-04-30 Orders Doctor NABILA 1.2.840.114 [id number] Univers 00:00:00 00:00:00 Only Unassigned, JOSE [id number] ity of [place] [facility] [id number] Asher as [phone] [address] 2019-04-19 2019-04-19 Office [place] NJBLAINE [id number] [facility] 14:02:15 15:03:01 Visit Jade Barbour [employer] [id number] ity of [place] [id number] Asher as MATERNAL [phone] [facility] & CHILD [address] [place] [address] 2019-04-19 2019-04-19 Orders Doctor NABILA 1.2.840.114 [id number] Univers 00:00:00 00:00:00 Only Unassigned, JOSE [id number] ity of [place] [facility] [id number] Asher as [phone] [address] Results This patient has no known results.
[2022-08-27 00:18] LABS: Urine Blood 2+ (Negative); Urine Glucose Negative (Negative); Urine Protein Negative (Negative); Urine Specific Gravity 1.025 (1.005-1.030); Urine pH 6.5 (5.0-7.0)
--- NOTE | 2022-08-27 00:20 | ER ---
Nurse's Notes [facility] Name: Maria A Veloz Age: 22 yrs Sex: Female : 2000 Arrival Date: 08/26/2022 Time: 23:53 Bed 18 Private MD: Diagnosis: Dysmenorrhea, unspecified Presentation: 08/27 00:02 Chief complaint: Patient states: I went to the bathroom and noticed a matthew tissue that ha1 looks like a miscarriage. I have been having vaginal bleeding for the past three days and I thought it was just my period. Coronavirus screen: Vaccine status: Patient reports receiving the 2nd dose of the covid vaccine. moderna. Ebola Screen: No symptoms or risks identified at this time. Initial Sepsis Screen: Does the patient meet any 2 criteria? No. Patient's initial sepsis screen is negative. Does the patient have a suspected source of infection? No. Patient's initial sepsis screen is negative. Risk Assessment: Do you want to hurt yourself or someone else? Patient reports no desire to harm self or others. Onset of symptoms was August 27, 2022. 00:02 Method Of Arrival: Ambulatory ha1 00:02 Acuity: SARAH 4 ha1 00:02 Acuity: SARAH 4 ha1 Triage Assessment: 00:09 General: Appears comfortable, Behavior is calm, cooperative. Pain: Denies pain. EENT: ha1 No signs and/or symptoms were reported regarding the EENT system. Neuro: Level of Consciousness is awake, alert, obeys commands, Oriented to person, place, time, situation. Cardiovascular: Capillary refill < 3 seconds Patient's skin is warm and dry. Respiratory: Airway is patent Respiratory effort is even, unlabored, Respiratory pattern is regular, symmetrical. GI: No signs and/or symptoms were reported involving the gastrointestinal system. Abdomen is flat, non-distended. : Reports vaginal bleeding that is bright red. Derm: No signs and/or symptoms reported regarding the dermatologic system. Skin is normal. Musculoskeletal: Circulation, motion, and sensation intact. Range of motion:. 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 - Social history:: Smoking status: Patient denies any tobacco usage or history of. Screenin/23 23:55 [facility] ED Fall Risk Assessment (Adult) History of falling in the last 3 months, ha1 including since admission No falls in past 3 months (0 pts) Confusion or Disorientation No (0 pts) Intoxicated or Sedated No (0 pts) Impaired Gait No (0 pts) Mobility Assist Device Used No (0 pt) Altered Elimination No (0 pt) Score/Fall Risk Level 0 - 2 = Low Risk. 08/27 00:13 Abuse screen: Denies threats or abuse. Denies injuries from another. Nutritional ha1 screening: No deficits noted. Tuberculosis screening: No symptoms or risk factors identified. Assessment: 08/26 23:55 General: see assessment in triage. ha1 08/27 00:37 Reassessment: Patient and/or family updated on plan of care and expected duration. Pain ha1 level reassessed. Patient is alert, oriented x 3, equal unlabored respirations, skin warm/dry/pink. Vital Signs: 08/26 23:55 BP 127 / 77; Pulse 86; Resp 18 S; Pulse Ox 98% on R/A; ha1 08/27 00:02 BP 127 / 77; Pulse 86; Resp 18 S; Temp 98.2; Pulse Ox 98% on R/A; Weight 68.95 kg; ha1 Height 5 ft. 4 in. (162.56 cm); 00:02 Body Mass Index 26.09 (68.95 kg, 162.56 cm) ha1 ED Course: 08/26 23:53 Patient arrived in ED. ja2 23:55 Pat[facility] Mc[facility]e [facility]-C [facility] kb 23:55 Niall Mustafa MD is Attending Physician. kb 08/27 00:01 Sudha Hyman RN is Primary Nurse. ha1 00:09 Triage completed. ha1 00:12 Arm band placed on right wrist. ha1 00:13 Patient has correct armband on for positive identification. Placed in gown. Bed in low ha1 position. Call light in reach. Side rails up X 1. 00:35 No provider procedures requiring assistance completed. Patient did not have IV access ha1 during this emergency room visit. Administered Medications: No medications were administered Medication: 00:36 VIS not applicable for this client. ha1 Outcome: 00:19 Discharge ordered by . pan 00:35 Discharged to home ambulatory. ha1 00:35 Condition: stable 00:35 Discharge instructions given to patient, Instructed on discharge instructions, follow up and referral plans. Demonstrated understanding of instructions, follow-up care. 00:37 Patient left the ED. ha1 Signatures: Pati Mcgee, SLAT BASKET TOP MAKER-C SLAT BASKET TOP MAKER-Gina Ryan Heidy, RN RN ha1
--- NOTE | 2022-08-27 00:20 | EDPHYS ---
Physician Documentation [facility] Name: Maria A Veloz Age: 22 yrs Sex: Female : 2000 Arrival Date: 08/26/2022 Time: 23:53 Bed 18 Private MD: ED Physician Niall Mustafa HPI: 08/27 00:09 This 22 yrs old Female presents to ER via Ambulatory with complaints of kb Vaginal Bleeding. 00:09 The patient presents with vaginal bleeding that is moderate, with clots, with tissue. kb Onset: The symptoms/episode began/occurred 3 day(s) ago. Modifying factors: The symptoms are alleviated by nothing, the symptoms are aggravated by nothing. Associated signs and symptoms: Pertinent positives: vaginal bleeding. Severity of symptoms: At their worst the symptoms were mild, in the emergency department the symptoms are unchanged. The patient has not experienced similar symptoms in the past. The patient has not recently seen a physician. Pt reports she started having vaginal bleeding 3 days ago and thought it was a normal cycle after her first depo shot. States she passed, what looked like, tissue today. States she didn't think she was , but wanted to come make sure it wasn't a miscarriage. 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 - Social history:: Smoking status: Patient denies any tobacco usage or history of. ROS: 00:09 Constitutional: Negative for fever, chills, and weight loss. kb 00:09 : Positive for vaginal bleeding. 00:09 All other systems are negative. Exam: 00:09 Constitutional: This is a well developed, well nourished patient who is awake, alert, kb and in no acute distress. Head/Face: Normocephalic, atraumatic. ENT: Moist Mucous membranes Cardiovascular: Regular rate and rhythm with a normal S1 and S2. No gallops, murmurs, or rubs. No pulse deficits. Respiratory: Respirations even and unlabored. No increased work of breathing. Talking in full sentences Abdomen/GI: Soft, non-tender. No distention Skin: Warm, dry with normal turgor. Normal color. MS/ Extremity: Pulses equal, no cyanosis. Neurovascular intact. Full, normal range of motion. Neuro: Awake and alert, GCS 15, oriented to person, place, time, and situation. Moves all extremities. Normal gait. Psych: Awake, alert, with orientation to person, place and time. Behavior, mood, and affect are within normal limits. Vital Signs: 08/26 23:55 BP 127 / 77; Pulse 86; Resp 18 S; Pulse Ox 98% on R/A; ha1 08/27 00:02 BP 127 / 77; Pulse 86; Resp 18 S; Temp 98.2; Pulse Ox 98% on R/A; Weight 68.95 kg; ha1 Height 5 ft. 4 in. (162.56 cm); 00:02 Body Mass Index 26.09 (68.95 kg, 162.56 cm) ha1 MDM: 08/26 23:55 Patient medically screened. kb 08/27 00:09 Data reviewed: vital signs, nurses notes. Data interpreted: Pulse oximetry: on room air kb is 100 %. Interpretation: normal. 00:19 Counseling: I had a detailed discussion with the patient and/or guardian regarding: the kb historical points, exam findings, and any diagnostic results supporting the discharge/admit diagnosis, lab results, the need for outpatient follow up, an OB/Gyne specialist, to return to the emergency department if symptoms worsen or persist or if there are any questions or concerns that arise at home. 08/27 00:18 Order name: Urine Dipstick-Ancillary; Complete Time: 00:19 EDMS 08/26 23:58 Order name: Urine Dipstick-Ancillary (obtain specimen); Complete Time: 00:16 kb 08/26 23:58 Order name: Urine Test (obtain specimen); Complete Time: 00:16 kb Administered Medications: No medications were administered Disposition: 03:08 Co-signature as Attending Physician, Niall Mustafa MD I agree with the assessment and rt plan of care. Disposition Summary: 08/27/22 00:19 Discharge Ordered Location: Home kb Condition: Stable kb Diagnosis - Dysmenorrhea, unspecified kb Followup: kb - With: Emergency Department - When: As needed - Reason: Worsening of condition Followup: kb - With: Private Physician - When: 2 - 3 days - Reason: Recheck today's complaints, Continuance of care, Re-evaluation by your physician Discharge Instructions: - Discharge Summary Sheet kb - Dysmenorrhea, [id number] kb Forms: - Medication Reconciliation Form kb - Thank You Letter kb - Antibiotic Education kb - Prescription Opioid Use kb Signatures: Pati Mcgee FNP-C FNP-Ckb Ayala, Heidy RN RN ha1 Niall Mustafa MD MD rt
[2022-08-27 00:41] VITALS: BP 127/77; O2SAT 98
[2022-08-27 00:42] VITALS: TEMP 98.2
== END 2022-08-27 00:37 | disposition home or self-care (01) ==
LOC: ER 23:48
DX: N94.6 Dysmenorrhea, unspecified (principal); Z88.8 Allergy status to other drugs, medicaments and biological substances
CPT/HCPCS: 81003; 99281